=== PATIENT | male | born 1960 ===

== ENCOUNTER 2017-02-06 19:52 | Inpatient (IN) | payer OTHER ==
--- NOTE | 2017-02-06 22:00 | ED PDOC ---
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 He reports that he felt a shaking sensation in his left arm, and subsequently numbness. He reports having trouble with hand gripping and grasping. When asked if he had a facial droop, patient denied, but his confirmed that he did have a left sided facial droop. Patient denies having any other complaints. PMD: Patient does not recall. NIHSS Stroke Scale - Date/Time Evaluation Performed Date Performed: 02/06/17 Time Performed: 21:38 When Was NIHSS Performed: Code Stroke - How Severe is the Stroke Level of Consciousness: 0=Alert LOC to Questions: 0=Both comments correct LOC to commands: 0=Obeys both correctly Best Gaze: 0=Normal Visual: 0=No visual loss Facial: 1=Minor asymmetry Motor Arm - Left: 1=Drift noted before 10 sec Motor Arm - Right: 0=No drift Motor Leg - Left: 0=No drift Motor Leg - Right: 0=No drift Limb Ataxia: 0=Absent Sensory: 1=Mild to moderate loss Best Language: 0=No aphasia Dysarthia: 0=Normal articulation Extinction & Inattention (Neglect): 0=Normal, no object Score: 3 rTPA Inclusion/Exclusion - Refusal of Treatment Patient Refused Treatment: No - Inclusion Criteria for Altepase Patient is 18 years or Older: Yes The Clinical Diagnosis of Ischemic Stroke That is Causing a Potentially Disabling Neurological Deficit: Yes Time of Onset is Well Established to be Less Than 270 Minute Before Treatment Would Begin: Yes Risk/Benefit Discussed With Patient/Family Member Present: Yes - Exclusion Criteria for Altepase Uncontrolled Hypertension at Time of Treatment (Systolic BP above 185 or Diastolic BP above 110 mmHg): No Active Internal Bleeding: No Known Bleeding Diathesis Including but Not Limited to: Platelets Below 100,000/ mm,PTT Above 40 sec After Heparin Use, Current Use of Oral Anitcoagulant With INR Greater Than 1.7 or PT Greater Than 15 secs: No Evidence of an Intracranial Hemorrhage: No Evidence of Major Acute Infarct With Signs Greater Than 1/3 MCA Territory: No Suspicion of Subarachnoid Hemorrhage on Pretreatment Evaluation Even if CT Head Negative For Hemorrhage: No - Warning to TPA With Conditions Following Conditions Weighed Against Anticipated Benefit: No Condition: Stroke Serevity Too Mild Past Medical History Reviewed: Historical Data, Nursing Documentation, Vital Signs Vital Signs: Last Vital Signs Temp 97.6 F 02/06/17 19:55 Pulse 112 H 02/06/17 19:55 Resp 20 02/06/17 19:55 BP 174/80 H 02/06/17 19:55 Pulse Ox 97 02/06/17 19:55 - Medical History PMH: Diabetes (NIDDM), HTN, Hypercholesterolemia Denies: Chronic Kidney Disease - Surgical History Surgical History: No Surg Hx - Family History Family History: States: Unknown Family Hx - Living Arrangements Living Arrangements: With Family - Social History Ex-Smoker (has not smoked in the last 12 months): Yes Alcohol: Occasional Drugs: Denies - Immunization History Hx Tetanus Toxoid Vaccination: No Hx Influenza Vaccination: No Hx Pneumococcal Vaccination: No - Home Medications Home Medications: Ambulatory Orders Medication Instructions Recorded metFORMIN [glucOPHAGE] 1,000 mg PO BIDCC #0 tab 05/31/16 GlipiZIDE [Glucotrol] 2.5 mg PO ACB #0 tab 10/08/16 Lisinopril [Zestril] 10 mg PO DAILY #0 tab 10/08/16 Simvastatin 10 mg PO HS #30 tablet 10/08/16 amLODIPine [Norvasc] 10 mg PO DAILY #0 tab 10/08/16 hydrALAZINE [Apresoline] 25 mg PO TID #0 tab 10/08/16 metFORMIN [glucOPHAGE] 1,000 mg PO BID #0 tab 10/08/16 Glipizide [Glipizide ER] 2.5 mg PO BID #120 ter 11/28/16 Lisinopril [Prinivil] 10 mg PO DAILY #30 tablet 11/28/16 MetFORMIN [glucOPHAGE] 1,000 mg PO BID #60 tab 11/28/16 Simvastatin 10 mg PO HS #30 tablet 11/28/16 amLODIPine [Norvasc] 10 mg PO DAILY #30 tab 11/28/16 hydrALAZINE [hydralazine 25 mg PO TID #90 tab 11/28/16 Hydrochloride] - Allergies Allergies/Adverse Reactions: Allergies Allergy/AdvReac Type Severity Reaction Status Date / Time No Known Allergies Allergy Verified 10/05/16 12:30 Review of Systems ROS Statement: Except As Marked, All Systems Reviewed And Found Negative Neurological: Positive for: Weakness (left arm), Numbness (left arm), Incoordination (left arm) Physical Exam - Reviewed Nursing Documentation Reviewed: Yes Vital Signs Reviewed: Yes - Physical Exam Appears: Positive for: Non-toxic, No Acute Distress Head Exam: Positive for: ATRAUMATIC, NORMOCEPHALIC ENT: Positive for: Other (dry mucous membranes) Neurologic/Psych: Positive for: Alert, Oriented (3x), Motor/Sensory Deficits ( mild paresis of left hand upon hand ct tech. 4/5 power in left arm, as opposed to 5 /5 power in right arm.), Facial Droop (mild left sided facial droop) - Laboratory Results Result Diagrams: 02/06/17 21:52 02/07/17 01:53 - ECG O2 Sat by Pulse Oximetry: 97 (RA) Pulse Ox Interpretation: Normal - Critical Care Total Time (In Min): 60 Documented Critical Care: Time excludes all time spent performint seperately billable procedures Medical Decision Making Medical Decision Makin:38 Initial impression: 56 year old male with acute onset left arm weakness. Code stroke. Code stroke is called upon evaluation by provider. Initial plan: * CT head w/o contrast (code stroke) * EKG * XRay chest portable * type and screen * alcohol serum * CMP * drug screen, urinary * hemoglobin A1C * lipid panel * troponin I * CBC * PTT coag * prothrombin time * accucheck * reevaluation 22:42 Patient admitted to cocaine use. 22:47 Discussed case with (neurology) who agrees that the patient is not a candidate for TPA given low TPA score (minor stroke). 22:55 Spoke with (hospitalist) to admit patient. accepted patient admission. Scribe Attestation: Documented by Jacquelin Anand, acting as a scribe for Willard Cloud MD. Provider Scribe Attestation: All medical record entries made by the Scribe were at my direction and personally dictated by me. I have reviewed the chart and agree that the record accurately reflects my personal performance of the history, physical exam, medical decision making, and the department course for this patient. I have also personally directed, reviewed, and agree with the discharge instructions and disposition. Disposition - Clinical Impression Clinical Impression: Cerebrovascular accident (CVA), Hyperglycemia without ketosis - Patient ED Disposition Is Patient to be Admitted: Yes Discussed With DrHernandez: Bolivar Conteh (Dr Holder) Counseled Patient/Family Regarding: Studies Performed, Diagnosis - Disposition Disposition Time: 22:00 Condition: FAIR - Pt Status Changed To: Hospital Disposition Of: Inpatient - Admit Certification Admit to Inpatient:: After my assessment, the patient will require hospitalization for at least two midnights. This is because of the severity of symptoms shown, intensity of services needed, and/or the medical risk in this patient being treated as an outpatient.
[2017-02-06 22:17] LABS: BASO # 0.1 K/uL (0.0-0.2); BASO % 0.8 % (0.0-2.0); EOS % 0.6 % (0.0-4.0); HEMATOCRIT 43.3 % (35.0-51.0); LYMPH # 1.4 K/uL (1.0-4.3); LYMPH % 18.4 % (20.0-40.0); MEAN CELL VOLUME 95.3 fl (80.0-94.0); MEAN CORPUSCULAR HEMOGLOBIN 30.8 pg (27.0-31.0); MEAN CORPUSCULAR HGB CONC 32.4 g/dL (33.0-37.0); MEAN PLATELET VOLUME 9.3 fl (7.2-11.7); MONO # 0.4 K/uL (0.0-0.8); MONO % 5.5 % (0.0-10.0); NEUT # 5.9 K/uL (1.8-7.0); NEUT % 74.7 % (50.0-75.0); RED CELL DISTRIBUTION WIDTH 12.2 % (11.5-14.5); WHITE BLOOD COUNT 7.9 K/uL (4.8-10.8)
[2017-02-06 22:31] LABS: ALCOHOL SERUM < 10 mg/dl (0-10); ALKALINE PHOSPHATASE 100 U/L (38-126); ALT/SGPT 25 U/L (21-72); AST/SGOT 35 U/L (17-59); BLOOD UREA NITROGEN 27 mg/dl (9-20); CALCIUM 9.3 mg/dL (8.4-10.2); CARBON DIOXIDE 26 mmol/L (22-30); CHLORIDE 88 mmol/L (98-107); GFR AFRICAN-AMERICAN 59; POTASSIUM 4.5 MMOL/L (3.6-5.0); SODIUM 127 mmol/l (132-148); TOTAL PROTEIN 7.4 G/DL (6.3-8.2)
[2017-02-06 22:34] LABS: CHOLESTEROL 339 mg/dL (0-199)
[2017-02-06 22:38] LABS: GLUCOSE,RANDOM 1063 mg/dL (75-110)
--- NOTE | 2017-02-06 22:40 | CT ---
PROCEDURE: CT HEAD WITHOUT CONTRAST. HISTORY: code stroke COMPARISON: None available. TECHNIQUE: Axial computed tomography images were obtained through the head/brain without intravenous contrast. Radiation dose: Total exam DLP = 863 mGy-cm. This CT exam was performed using one or more of the following dose reduction techniques: Automated exposure control, adjustment of the mA and/or kV according to patient size, and/or use of iterative reconstruction technique. FINDINGS: HEMORRHAGE: No intracranial hemorrhage. BRAIN: No mass effect or edema. No atrophy or chronic microvascular ischemic changes. VENTRICLES: Unremarkable. No hydrocephalus. CALVARIUM: Unremarkable. PARANASAL SINUSES: Unremarkable as visualized. No significant inflammatory changes. MASTOID AIR CELLS: Unremarkable as visualized. No inflammatory changes. OTHER FINDINGS: None. IMPRESSION: No acute findings
[2017-02-06] MEDS ORDERED: Sodium Chloride 0.9% 1,000 ML IV STA (22:41)
[2017-02-06] MEDS ORDERED: Insulin Regular 100 units/ml IV ONE (22:41)
[2017-02-06] MEDS ORDERED: Insulin Regular 100 units/ml ONE (22:50)
[2017-02-06 22:56] LABS: PARTIAL THROMBOPLASTIN TIME 26.5 SECONDS (23.3-32.5)
--- NOTE | 2017-02-06 23:16 | CP.PCM.HP ---
History of Present Illness - History of Present Illness History of Present Illness: PCP: None Chief Complaint: Left side weakness HPI: The hx is obtained from the patient and his at bedside. He is a 56 years old male with hx of HTN, HLD, DM II, and noncompliance with medication, brought in by EMS from home because of left side weakness. 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 He immediately fell to the left side, causing bruises to the left leg and left thigh,and not being aware how nor why it occurred. He was not certain if there was weakness to the left lower extremity. In the ED his confirmed that there was a new drooping at the left side of the face. No headaches, dizziness, no sign of upper respiratory tract infection nor ear problem. No nausea, vomits , cough, SOB , chest pain nor palpitations. NIHSS Stroke Scale score was 3 in the ED. He also passed the swallow evaluation. PMH: DM II; HTN; HLD; Renal Insufficiency, Non compliance with medication PSH: ORIF of left Tib/Fib Fracture SH: Former Smoker; Alcohol occasionally, Cocaine use; Live with FH: No hereditary disease Allergies: NKDA Present on Admission - Present on Admission Any Indicators Present on Admission: Yes History of DVT/PE: No History of Uncontrolled Diabetes: Yes Urinary Catheter: No Decubitus Ulcer Present: No Review of Systems - Constitutional Constitutional: Weakness. absent: Anorexia, Chills, Fatigue, Fever, Headache - EENT Eyes: Blurred Vision, Requires Corrective Lenses. absent: Diplopia, Photophobia , Sees Flashes Ears: absent: Decreased Hearing, Ear Discharge, Ear Pain, Tinnitus Nose/Mouth/Throat: absent: Epistaxis, Nasal Congestion, Nasal Discharge, Sinus Pain, Sinus Pressure, Sore Throat - Cardiovascular Cardiovascular: absent: Chest Pain, Dyspnea, Edema, Orthopnea - Respiratory Respiratory: absent: Cough, Dyspnea, Wheezing, Stridor, Chest Congestion - Gastrointestinal Gastrointestinal: absent: Abdominal Pain, Constipation, Diarrhea, Nausea, Vomiting - Genitourinary Genitourinary: absent: Dysuria, Flank Pain, Hematuria, Urinary Frequency - Musculoskeletal Musculoskeletal: Muscle Weakness. absent: Arthralgias, Back Pain - Integumentary Integumentary: absent: Pruritus, Rash, Skin Ulcer, Sores, Striae, Swelling - Neurological Neurological: Focal Weakness. absent: Confusion, Dizziness, Memory Loss - Psychiatric Psychiatric: absent: Anxiety, Depression, Panic Attacks - Endocrine Endocrine: Polydipsia. absent: Palpitations, Polyphagia, Polyuria - Hematologic/Lymphatic Hematologic: absent: Easy Bleeding, Easy Bruising Past Patient History - Infectious Disease Hx of Infectious Diseases: None - Past Medical History & Family History Past Medical History?: Yes - Past Social History Smoking Status: Former Smoker Chewing Tobacco Use: No Cigar Use: No Alcohol: Occasional Drugs: Cocaine Home Situation {Lives}: With Family - CARDIAC Hx Hypercholesterolemia: Yes Hx Hypertension: Yes - PULMONARY Hx Respiratory Disorders: No - NEUROLOGICAL Hx Neurological Disorder: No - HEENT Hx HEENT Problems: No - RENAL Hx Chronic Kidney Disease: Yes Hx Renal Failure: Yes - ENDOCRINE/METABOLIC Hx Endocrine Disorders: Yes Hx Diabetes Mellitus Type 2: Yes - HEMATOLOGICAL/ONCOLOGICAL Hx Blood Disorders: No - INTEGUMENTARY Hx Dermatological Problems: No - MUSCULOSKELETAL/RHEUMATOLOGICAL Hx Musculoskeletal Disorders: No Hx Falls: No (DENIES) - GASTROINTESTINAL Hx Gastrointestinal Disorders: Yes Hx Nausea: Yes Hx Vomiting: Yes - GENITOURINARY/GYNECOLOGICAL Hx Genitourinary Disorders: No - PSYCHIATRIC Hx Substance Use: Yes - SURGICAL HISTORY Hx Surgeries: Yes Hx Open Reduction Internal Fixation: Yes (Left Tib/Fib fracture) - ANESTHESIA Hx Anesthesia: Yes Hx Anesthesia Reactions: No Hx Malignant Hyperthermia: No Meds Allergies/Adverse Reactions: Allergies Allergy/AdvReac Type Severity Reaction Status Date / Time No Known Allergies Allergy Verified 10/05/16 12:30 Physical Exam - Constitutional Appears: No Acute Distress - Head Exam Head Exam: ATRAUMATIC, NORMOCEPHALIC - Eye Exam Eye Exam: EOMI, Normal appearance Pupil Exam: NORMAL ACCOMODATION, PERRL - ENT Exam ENT Exam: Mucous Membranes Moist, Normal Exam, Normal External Ear Exam, Normal Oropharynx - Neck Exam Neck exam: Positive for: Full Rom, Normal Inspection. Negative for: Lymphadenopathy, Tenderness - Respiratory Exam Respiratory Exam: Clear to Auscultation Bilateral. absent: Rales, Rhonchi, Wheezes - Cardiovascular Exam Cardiovascular Exam: REGULAR RHYTHM, RRR, +S1, +S2. absent: Gallop, JVD - GI/Abdominal Exam GI & Abdominal Exam: Normal Bowel Sounds, Soft. absent: Mass, Organomegaly, Tenderness - Rectal Exam Rectal Exam: Deferred - Extremities Exam Additional comments: lateral left leg with excoriation 8 inches the longest diameter Bruise at the lateral left thigh. - Back Exam Back exam: NORMAL INSPECTION. absent: CVA tenderness (L), CVA tenderness (R) - Neurological Exam Neurological exam: Alert, Oriented x3, Reflexes Normal Additional comments: The patient is awake , alert, oriented x 3 with a mild let facial droop. No deviation of the tongue but weakness at the left shoulder and muscles at the left neck. Motor strength at the left upper extremity is 5/5but some what un coordinated. Motor strength at the left lower extremity is 5/5 - Psychiatric Exam Psychiatric exam: Normal Affect, Normal Mood - Skin Skin Exam: Dry, Intact, Normal Color, Warm Results - Vital Signs Recent Vital Signs: Last Vital Signs Temp 97.6 F 02/06/17 19:55 Pulse 112 H 02/06/17 19:55 Resp 20 02/06/17 19:55 BP 174/80 H 02/06/17 19:55 Pulse Ox 97 02/06/17 23:00 - Labs Result Diagrams: 02/06/17 21:52 02/06/17 22:15 - EKG Data EKG comments: Sinus Tachycardia 111/min, no sign of ischemia. - Imaging and Cardiology Chest x-ray Status: Image reviewed by me Additional comment: No Infiltrate CT scan - head Status: Image reviewed by me, Report reviewed by me Additional comment: No Acute findings Assessment & Plan - Assessment and Plan (Free Text) Assessment: #. Acute CVA with left side weakness #. Hyperglycemic Hyperosmolar State #. Uncontrolled DM II #. HTN #. HLD #. Renal Insufficiency Plan: 56 years old male with hx of HTN, HLD, DM II, and noncompliance with medication, brought in by EMS from home because of left side weakness. 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 He immediately fell to the left side, causing bruises to the left leg and left thigh,and not being aware how nor why it occurred. . In the ED his confirmed that there was a new drooping at the left side of the face. NIHSS Stroke Scale score was 3 in the ED. #. Acute CVA with left side weakness. With this patient having Hyperglycemia and Hyper lipidemia this is more likely CVA than Kar's Palsy with Post seizure weakness, although seizure should be ruled out. - consult Neurology Dr Holder - Admit to ICU - Neuro checks q1hr - ASA 325mg PO Daily - MRI/MRA of Brain - Carotid US - ECHO to check for PFO - EEG tor/o seizure - Patient passed swallow evaluation in ED #. Hyperglycemic Hyperosmolar State - IV Fluids one liter in ED, Continue with NS at 500mls/hr for 3L - Regular insulin sliding scale according to Accucheck Q4H - NPO except Meds until Blood Glucose normalizes - Follow Electrolytes #. Uncontrolled DM II - Hold Metformin/ Glipizide until Blood Glucose is Controlled - HbA1c #. Hyponatremia secondary to the Hyperglycemia, increased to 141mg/dl after correction. - follow electrolytes #. HTN uncontrolled - No treatment at present and follow as permissive Hypertension. Treat if SBP> 180mmHG and DBP> 110mmHg until seen by Neurology - Monitor BP #. HLD - Patient on Zocor #. Renal Insufficiency - Continue IV fluids - Follow Renal labs -. Stress Ulcer Prophylaxis with Pepcid. #. DVT Prophylaxis with Sub Q Heparin #. Code Status : Full - Date & Time Date: 02/06/17 Time: 23:16
[2017-02-07] MEDS: Sodium Chloride 0.9% 1,000 ML IV SCH ×5 (02:00→19:11)
[2017-02-07] MEDS: Insulin Regular 100 units/ml SC SCH ×5 (02:54→21:22)
[2017-02-07 03:00] LABS: BLOOD UREA NITROGEN 28 mg/dl (9-20); CARBON DIOXIDE 24 mmol/L (22-30); CHLORIDE 100 mmol/L (98-107); GFR AFRICAN-AMERICAN > 60; MAGNESIUM 1.9 MG/DL (1.6-2.3); PHOSPHOROUS 3.3 mg/dl (2.5-4.5); POTASSIUM 4.1 MMOL/L (3.6-5.0); SODIUM 135 mmol/l (132-148)
[2017-02-07 03:04] LABS: GLUCOSE,RANDOM 526 mg/dL (75-110)
[2017-02-07 04:10] VITALS: BMI 22.1
[2017-02-07 06:48] LABS: HEMATOCRIT 33.9 % (35.0-51.0); MEAN CELL VOLUME 90.3 fl (80.0-94.0); MEAN CORPUSCULAR HEMOGLOBIN 31.1 pg (27.0-31.0); MEAN CORPUSCULAR HGB CONC 34.4 g/dL (33.0-37.0); RED CELL DISTRIBUTION WIDTH 12.2 % (11.5-14.5); WHITE BLOOD COUNT 9.3 K/uL (4.8-10.8)
[2017-02-07 07:27] LABS: BLOOD UREA NITROGEN 25 mg/dl (9-20); CALCIUM 8.6 mg/dL (8.4-10.2); CARBON DIOXIDE 27 mmol/L (22-30); CHLORIDE 103 mmol/L (98-107); CHOLESTEROL 254 mg/dL (0-199); GFR AFRICAN-AMERICAN > 60; GLUCOSE,RANDOM 241 mg/dL (75-110); POTASSIUM 3.4 MMOL/L (3.6-5.0); SODIUM 138 mmol/l (132-148)
--- NOTE | 2017-02-07 08:40 | CP.PCM.PN ---
Subjective - Date & Time of Evaluation Date of Evaluation: 02/07/17 Time of Evaluation: 08:40 - Subjective Subjective: Patient seen and examined bedside. Feeling better. Denies any weakness , numbness at present. Hemodynamically stable, afebrile. Denies any CP, SOB, Blake, blurry vision. BP 149/76 HR 92 saturating 97 % in RA WBC 9 K Hgb 11.7 Objective - Vital Signs/Intake and Output Vital Signs (last 24 hours): Temp Pulse Resp BP Pulse Ox 98.2 F 92 H 15 149/76 98 02/07/17 08:00 02/07/17 08:00 02/07/17 08:00 02/07/17 08:00 02/07/17 08:00 Intake and Output: 02/07/17 02/07/17 06:59 18:59 Intake Total 3000 Output Total 1300 Balance 1700 - Medications Medications: Current Medications Aspirin (Aspirin Supp) 300 mg HI DAILY [facility] Last Admin: 02/06/17 23:00 Dose: 300 mg Famotidine (Pepcid) 20 mg PO BID [facility] Heparin Sodium (Porcine) (Heparin) 5,000 units SC Q8 JOYCE PRN Reason: Protocol Sodium Chloride (Sodium Chloride 0.9%) 1,000 mls @ 100 mls/hr IV .Q10H [facility] Stop: 02/08/17 11:49 Last Admin: 02/07/17 06:58 Dose: 100 mls/hr Insulin Human Regular (Humulin R) 0 units SC Q4H JOYCE PRN Reason: Protocol Last Admin: 02/07/17 05:10 Dose: 4 units Pneumococcal Polyvalent Vaccine (Pneumovax 23 Vaccine) 0.5 ml IM .ONCE ONE Stop: 02/07/17 09:01 Pravastatin Sodium (Pravachol) 20 mg PO HS [facility] - Labs Labs: 02/07/17 04:30 02/07/17 04:30 PT 10.3 SECONDS (9.6-11.2) 02/06/17 22:00 INR 0.99 (0.92-1.08) 02/06/17 22:00 APTT 26.5 SECONDS (23.3-32.5) 02/06/17 22:00 - Constitutional Appears: Non-toxic, No Acute Distress - Head Exam Head Exam: ATRAUMATIC, NORMAL INSPECTION, NORMOCEPHALIC - Eye Exam Eye Exam: EOMI, Normal appearance, PERRL Pupil Exam: NORMAL ACCOMODATION - ENT Exam ENT Exam: Mucous Membranes Moist, Normal Exam - Neck Exam Neck Exam: Full ROM, Normal Inspection - Respiratory Exam Respiratory Exam: Clear to Ausculation Bilateral, NORMAL BREATHING PATTERN. absent: Rales, Rhonchi, Wheezes - Cardiovascular Exam Cardiovascular Exam: REGULAR RHYTHM, RRR, +S1, +S2. absent: JVD - GI/Abdominal Exam GI & Abdominal Exam: Soft, Normal Bowel Sounds. absent: Distended, Guarding, Rebound - Rectal Exam Rectal Exam: Deferred - Extremities Exam Extremities Exam: Full ROM, Normal Capillary Refill, Normal Inspection. absent : Calf Tenderness, Pedal Edema - Back Exam Back Exam: NORMAL INSPECTION - Neurological Exam Neurological Exam: Alert, Awake, CN II-XII Intact, Oriented x3 - Psychiatric Exam Psychiatric exam: Normal Affect, Normal Mood - Skin Skin Exam: Dry, Intact, Normal Color, Warm Assessment and Plan - Assessment and Plan (Free Text) Assessment: 56 years old male with hx of HTN, HLD, DM II, and noncompliance with medication, brought in by EMS from home because of left side weakness. 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 He immediately fell to the left side, causing bruises to the left leg and left thigh,and not being aware how nor why it occurred. . In the ED his confirmed that there was a new drooping at the left side of the face. NIHSS Stroke Scale score was 3 in the ED. Patient also found to have very high levels of glu > 1000 , elevated TG . He was admitted for possible CVA vs Kar's paralysis with new onset seizure and hyperosmolar hyperglycemic state. At present back to his baseline with no weakness and accu 241 1.R/o Acute CVA with left side weakness vs Kar's paralysis and new onset seizure Patient improves, back to his baseline with no weakness , numness or facial droop CT head showed no acute pathology Follow up MRI head,carotid doppler , EEG, neuro checks, Echo Neurology consulted Dr. Holder Continue ASA, Statin, BP and glycemic control Start CHO / cardiac diet since patient passed swallow umair; may transfer to telemetry PT/OT eval 2. Hyperglycemic Hyperosmolar State Glucose 1063 in ED Better controlled at present Change accucheks to ACHS with insulin coverage Continue IVF F/u Hgb A1c endo consult with Dr. Cornejo Start diabetic diet Resume metformin and Glipizide patient is not compliant with medications. Will need diabetic education 3. Pseudohyponatremia secondary to the Hyperglycemia 4. HTN uncontrolled allow permissive hypertension or now 5.Dyslipidemia Start Provastatin 40 6.Acute Renal Insufficiency Continue IV fluids Hold ACEI for now 7. DVT Prophylaxis SCD and Heparin
[2017-02-07] MEDS ORDERED: Potassium Chloride 20 mEq/15 ml LIQ UD PO ONE (08:55)
[2017-02-07] MEDS ORDERED: Pneumococcal 23-Valent Vaccine IM ONE (09:00)
--- NOTE | 2017-02-07 10:00 | RAD ---
HISTORY: code CVA COMPARISON: No prior. FINDINGS: LUNGS: No active pulmonary disease. PLEURA: No significant pleural effusion identified, no pneumothorax apparent. CARDIOVASCULAR: Normal. OSSEOUS STRUCTURES: No significant abnormalities. VISUALIZED UPPER ABDOMEN: Normal. OTHER FINDINGS: None. IMPRESSION: No active disease.
[2017-02-07 10:14] LABS: THYROID STIMULATING HORMONE 2.47 mIU/ML (0.46-4.68)
[2017-02-07 10:38] LABS: URINE BILIRUBIN NEGATIVE (NEGATIVE); URINE BLOOD NEGATIVE (NEGATIVE); URINE COLOR YELLOW (YELLOW); URINE GLUCOSE (UA) >=500 mg/dL (Normal); URINE KETONE NEGATIVE (NEGATIVE); URINE LEUKOCYTE ESTERASE NEG Leu/uL (Negative); URINE PROTEIN 100 mg/dL (NEGATIVE); URINE UROBILINOGEN 0.2-1.0 mg/dL (0.2-1.0); WBC URINE < 1 /hpf (0-5)
--- NOTE | 2017-02-07 11:21 | MRI ---
PROCEDURE: MRI BRAIN WITHOUT CONTRAST HISTORY: CVA with right side weakness COMPARISON: Noncontrast head CT from 02/06/2017 TECHNIQUE: Multiplanar, multisequence MR images of the brain were obtained without intravenous contrast enhancement. FINDINGS: HEMORRHAGE: None DWI: No evidence of an acute or early subacute infarction. BRAIN PARENCHYMA: There are small old lacunar infarctions in the left basal ganglia. There are scattered T2/FLAIR hyperintense foci in the supratentorial white matter. There is no mass, mass effect or abnormal extra-axial fluid collection. Enciso-white matter differentiation is preserved. The midline sagittal structures are normal. VENTRICLES: There is mild global parenchymal volume loss and proportionate enlargement of the ventricles and cortical sulci. CRANIUM: There is normal bone marrow signal pattern. ORBITS: Grossly unremarkable. PARANASAL SINUSES/MASTOIDS: The paranasal sinuses are predominantly clear. There are trace mastoid effusions. VASCULAR SYSTEM: There are normal signal voids in the larger intracranial arteries. OTHER FINDINGS: None. IMPRESSION: No acute intracranial abnormality. Small old lacunar infarctions in the left basal ganglia. Mild chronic microangiopathic changes. Mild diffuse global parenchymal volume loss, advanced for the patient's age.
[2017-02-07] MEDS ORDERED: Insulin Regular 100 units/ml SC SCH (11:30)
--- NOTE | 2017-02-07 11:56 | MRI ---
PROCEDURE: Magnetic Resonance Angiography Brain HISTORY: Left side weakness COMPARISON: None available. TECHNIQUE: 3D time of flight MR angiography of the intracranial arteries was performed. Rotating maximum intensity projection images were generated. FINDINGS: INTERNAL CEREBRAL ARTERIES: Normal in caliber. The skull base, petrous, cavernous and supraclinoid segments are bilaterally widely patient. ANTERIOR CEREBRAL ARTERIES: Normal in caliber. The right A1 segment is hypoplastic, an anatomic variant. There is narrowing in both A1 segments and a short segment stenosis in the left proximal A1 segment. Both A2 segments are widely patent. Smaller distal branches unremarkable, as visualized. MIDDLE CEREBRAL ARTERIES: There is mild narrowing in the right proximal M1 segment. The right distal M1 and M2 segments are widely patent. Perisylvian branches grossly symmetric. POSTERIOR CIRCULATION: Basilar Artery: Normal. Distal Vertebral Arteries: Normal. The left vertebral artery is dominant intracranially. Posterior Cerebral Arteries: Normal. Posterior Inferior Cerebellar Arteries: Normal. ANEURYSM/ VASCULAR MALFORMATIONS: None. OTHER FINDINGS: None. IMPRESSION: 1. Findings may represent intracranial atherosclerosis in both A1 segment with a short segment stenosis in the left proximal M1 segment. 2. Mild narrowing in the right proximal M1 segment could also be related to intracranial atherosclerosis.
[2017-02-07] MEDS: Pravastatin Sodium 40 MG TAB PO SCH (13:57)
--- NOTE | 2017-02-07 14:21 | US ---
PROCEDURE: Duplex ultrasound of the carotid and vertebral arteries. HISTORY: CVA with right side weakness COMPARISON: None available. TECHNIQUE: Grayscale and duplex Doppler evaluation of the cervical carotid and vertebral arteries were performed. The common carotid, carotid bifurcations and cervical ICA and proximal ECA were evaluated. The vertebral arteries were evaluated for gross patency and direction. FINDINGS: There are mild calcified atherosclerotic plaques in the carotid bulbs and proximal internal carotid arteries. RIGHT CAROTID ARTERIES: Common Carotid Artery: Normal. Maximal flow velocity of 82.0 cm/s. Carotid Bifurcation: Normal. Internal Carotid Artery:Normal. Maximal flow velocity of 68.8 cm/s. External Carotid Artery (proximal branches): Normal. Maximal flow velocity of 85.9 cm/s. ICA/CCA Ratio: 0.8 LEFT CAROTID ARTERIES: Common Carotid Artery: Normal. Maximal flow velocity of 110.1 cm/s. Carotid Bifurcation: Normal. Internal Carotid Artery:Normal. Maximal flow velocity of 74.6 cm/s. External Carotid Artery (proximal branches): Normal. Maximal flow velocity of 88.4 cm/s. ICA/CCA Ratio: 0.7 VERTEBRAL ARTERIES: Right Vertebral Artery: Patent. Antegrade flow. Left Vertebral Artery: Patent. Antegrade flow. OTHER FINDINGS: There are bilateral enlarged cervical chain lymph nodes. IMPRESSION: No evidence of hemodynamically significant stenosis by peak systolic velocity criteria. Bilateral cervical lymphadenopathy, nonspecific and could be reactive, infectious or inflammatory in etiology. Neoplastic etiology such as metastasis or lymphoma cannot be entirely excluded. Clinical follow-up is advised.
--- NOTE | 2017-02-07 18:33 | CARD ---
APPROVED REPORT EXAM: Two-dimensional and M-mode echocardiogram with Doppler and color Doppler. Other Information Quality : GoodRhythm : NSR INDICATION CVA/TIA 2D DIMENSIONS IVSd1.48 (0.7-1.1cm)LVDd4.55 (3.9-5.9cm) LVOT Diameter2.34 (1.8-2.4cm)PWd1.15 (0.7-1.1cm) IVSs1.74 (0.8-1.2cm)LVDs3.19 (2.5-4.0cm) FS (%) 30.0 %PWs1.62 (0.8-1.2cm) M-Mode DIMENSIONS Left Atrium (MM)4.00 (2.5-4.0cm)IVSd0.74 (0.7-1.1cm) Aortic Root2.56 (2.2-3.7cm)LVDd5.41 (4.0-5.6cm) Aortic Cusp Exc.1.74 (1.5-2.0cm)PWd0.85 (0.7-1.1cm) IVSs1.47 cmFS (%) 31 % LVDs3.74 (2.0-3.8cm)PWs1.38 cm Mitral Valve E/A ratio0.0 TDI E/Lateral E'0.0E/Medial E'0.0 Pulmonary Valve PV Peak Oafzrssx20.0cm/s LEFT VENTRICLE The left ventricle is normal size. There is normal left ventricular wall thickness. Left ventricle systolic function is mildly impaired. The LVEF is - 50%. The anterior and septal brunner are hypokinetic. The other segments of the left ventricle contract well. Transmitral Doppler flow pattern is Grade I-abnormal relaxation pattern. No left ventricle thrombus noted on this study. There is no ventricular septal defect visualized. There is no left ventricular aneurysm. There is no mass noted in the left ventricle. RIGHT VENTRICLE The right ventricle is normal size. There is normal right ventricular wall thickness. The right ventricular systolic function is normal. ATRIA The left atrium size is normal. There is no thrombus suspected in the left atrium. The right atrium size is normal. The interatrial septum is intact with no evidence for an atrial septal defect. AORTIC VALVE The aortic valve is normal in structure and function. No aortic regurgitation is present. There is no aortic valvular stenosis. MITRAL VALVE The mitral valve is normal in structure and function. There is no evidence of mitral valve prolapse. There is no mitral valve stenosis. Mitral regurgitation is mild. TRICUSPID VALVE The tricuspid valve is normal in structure and function. There is trace to mild tricuspid regurgitation. There is no tricuspid valve prolapse or vegetation. There is no tricuspid valve stenosis. PULMONIC VALVE The pulmonary valve is normal in structure and function. There is no pulmonic valvular regurgitation. GREAT VESSELS The aortic root is normal in size. The IVC is normal in size and collapses >50% with inspiration. PERICARDIAL EFFUSION The pericardium appears normal. There is no pleural effusion. <Conclusion> The left ventricle is normal in size and wall thickness. Left ventricle systolic function is mildly impaired with a LVEF is - 50%. The left atrium, right ventricle and right atrium are normal in size. The mitral, aortic and tricuspid valves are normal. There is mild mitral regurgitation and trace to mild tricuspid regurgitation.
--- NOTE | 2017-02-07 18:47 | CON ---
DATE: 02/07/2017 ROOM: ICU 422. HISTORY OF PRESENT ILLNESS: This is a 56-year-old male with known history of type 2 diabetes and hyp ertension who presents here with apparent left-sided weakness and uncontrollable tremors in the left upper extremity and was evaluated to have possible acute CVA and is now being referred for diabetic e valuation because of persistent hyperglycemic accelerations as noted thereof. PAST MEDICAL HISTORY: History of type 2 diabetes, currently on metformin given as 850 b.i.d. and gli pizide given as 10 mg b.i.d. He actually has admitted to having stopped his oral hypoglycemic therap y and was last using metformin at the higher dose of 1000 b.i.d. and glipizide 10 b.i.d. more than 3 months or so ago as noted,. History of hypertensive cardiovascular disease and dyslipidemia, history of diabetic retinopathy, polyneuropathy, and nephropathy. FAMILY HISTORY: Positive for diabetes and hypertension. SOCIAL HISTORY: The patient has supportive family. Admits to previous history of smoking and persis tent chronic alcoholism. Also, admits to cocaine use every so often as noted. FAMILY HISTORY: Positive for hypertension and diabetes. REVIEW OF SYSTEMS: As mentioned above, admits to generalized body weakness with easy fatigability an d tiredness and suboptimal energy level. Also, admits to visual blurring, worse in the last few week s prior to admission. No chest pains or palpitations or PNDs. His oral intake has been variable wit h nausea, dyspepsia, and vomiting episodes with loose watery diarrhea. PHYSICAL EXAMINATION: GENERAL: An average built male in no apparent distress. VITAL SIGNS: Blood pressure 154/90, pulse of 70 beats per minute and regular, temperature 98, respir ations 20. Height is 5 feet 9 inches, weight 150 pounds. HEENT: Head normocephalic. Eyes anicteric with pink conjunctivae. Fundoscopy not possible at this time. Ears, nose and throat otherwise normal. NECK: Supple. Thyroid gland is normal size. No carotid bruits. No cervical adenopathy. CARDIOPULMONARY: Adynamic precordium. S1, S2 is rapid and regular. LUNGS: Clear to auscultation. ABDOMEN: Flat, soft with positive bowel sounds. EXTREMITIES: No peripheral edema. Pulses are +2 bilaterally. LABORATORY DATA: His chemistry showed a BUN of 27, sodium 127, potassium 4.5, chloride 98, CO2 26, g lucose and creatinine 1.0. His triglycerides of 379 and cholesterol is 339, LDL is 178 and HDL is 92. ASSESSMENT: This is a 56-year-old male with uncontrolled and decompensated type 2 insulin-requiring diabetes, presenting here with hyperosmolar hyperglycemic state with no evidence of ketosis or metabo lic acidosis and concomitant spurious hyponatremia and dehydration. He also has significant history of diabetic microvascular complications of retinopathy, polyneuropathy, and nephropathy as mentioned. PLAN OF MANAGEMENT: As discussed with the patient and staff, we will modify his current insulin celso men and switch him over to a basal insulin with Levemir given as 10 units subQ at bedtime daily to [facility] [place] tonight. We will continue his oral hypoglycemic drug therapy given in combination with glipizide 10 mg b.i.d. and metformin 850 mg b.i.d. as ordered. We will titrate incrementally as indicated to optimize metabolic control. We will also modify the coverage scale to obviate hypoglycemia and detai led orders have been given. However, with the patient's financial constraints and lack of medical in surance, we cannot give him insulin analogs which are more convenient to use and thus a better clinic al and biochemical response thereof. We will start him on the cheaper and more affordable insulin li ke Humulin NPH given as 12 units subQ at bedtime to start tonight. We will also add Humulin 70/30 on ly as indicated by tomorrow. We will obtain serial chemistries and supplement accordingly as needed. We will continue the IV hydration as ordered. We will follow and advise accordingly. Analy Cornejo MD cc: [id number] TT: 02/07/2017 18:46:59 Confirmation # [id number] Dictation # [id number] christine
--- NOTE | 2017-02-07 19:11 | CARD ---
APPROVED REPORT EKG Measurement Heart [id number] <Conclusion> Sinus tachycardia Minimal voltage criteria for LVH, may be normal variant Borderline ECG
--- NOTE | 2017-02-07 20:02 | CP.PCM.CON ---
History of Present Illness - History of Present Illness History of Present Illness: 56 year old male patient with a pertinent medical history of hypertension, NIDDM, and hypercholesterolemia, accompanied by his presents to the ED with complaints of left arm weakness that started 1.5x hours prior to arrival. He reports that he felt a shaking sensation in his left arm, and subsequently numbness. He reports having trouble with hand gripping and grasping. When asked if he had a facial droop, patient denied, but his confirmed that he did have a left sided facial droop. Patient denies having any other complaints. PMD: Patient does not recall. NIHSS Stroke Scale - Date/Time Evaluation Performed Date Performed: 02/06/17 Time Performed: 21:38 When Was NIHSS Performed: Code Stroke - How Severe is the Stroke Level of Consciousness: 0=Alert LOC to Questions: 0=Both comments correct LOC to commands: 0=Obeys both correctly Best Gaze: 0=Normal Visual: 0=No visual loss Facial: 1=Minor asymmetry Motor Arm - Left: 1=Drift noted before 10 sec Motor Arm - Right: 0=No drift Motor Leg - Left: 0=No drift Motor Leg - Right: 0=No drift Limb Ataxia: 0=Absent Sensory: 1=Mild to moderate loss Best Language: 0=No aphasia Dysarthia: 0=Normal articulation Extinction & Inattention (Neglect): 0=Normal, no object Score: 3 Last Vital Signs Temp 97.6 F 02/06/17 19:55 Pulse 112 H 02/06/17 19:55 Resp 20 02/06/17 19:55 BP 174/80 H 02/06/17 19:55 Pulse Ox 97 02/06/17 19:55 - Medical History PMH: Diabetes (NIDDM), HTN, Hypercholesterolemia Denies: Chronic Kidney Disease - Surgical History Surgical History: No Surg Hx - Family History Family History: States: Unknown Family Hx - Social History Ex-Smoker (has not smoked in the last 12 months): Yes Alcohol: Occasional Drugs: Denies - Immunization History Hx Tetanus Toxoid Vaccination: No Hx Influenza Vaccination: No Hx Pneumococcal Vaccination: No - Home Medications Home Medications: Allergies Allergy/AdvReac Type Severity Reaction Status Date / Time No Known Allergies Allergy Verified 10/05/16 12:30 Review of Systems ROS Statement: Except As Marked, All Systems Reviewed And Found Negative Neurological: Positive for: Weakness (left arm), Numbness (left arm), Incoordination (left arm) Past Patient History - Infectious Disease Hx of Infectious Diseases: None - Past Medical History & Family History Past Medical History?: Yes - Past Social History Alcohol: Occasional Drugs: Denies - CARDIAC Hx Hypercholesterolemia: Yes Hx Hypertension: Yes - PULMONARY Hx Respiratory Disorders: No - NEUROLOGICAL Hx Neurological Disorder: No - HEENT Hx HEENT Problems: No - RENAL Hx Chronic Kidney Disease: No - ENDOCRINE/METABOLIC Hx Endocrine Disorders: Yes Hx Diabetes Mellitus Type 2: Yes - HEMATOLOGICAL/ONCOLOGICAL Hx Blood Disorders: No - INTEGUMENTARY Hx Dermatological Problems: No - MUSCULOSKELETAL/RHEUMATOLOGICAL Hx Musculoskeletal Disorders: No Hx Falls: No (DENIES) - GASTROINTESTINAL Hx Gastrointestinal Disorders: Yes Hx Nausea: Yes Hx Vomiting: Yes - GENITOURINARY/GYNECOLOGICAL Hx Genitourinary Disorders: No - PSYCHIATRIC Hx Substance Use: Yes - SURGICAL HISTORY Hx Surgeries: Yes Hx Open Reduction Internal Fixation: Yes (Left Tib/Fib fracture) - ANESTHESIA Hx Anesthesia: Yes Hx Anesthesia Reactions: No Hx Malignant Hyperthermia: No Meds Allergies/Adverse Reactions: Allergies Allergy/AdvReac Type Severity Reaction Status Date / Time No Known Allergies Allergy Verified 10/05/16 12:30 - Medications Medications: Current Medications Amlodipine Besylate (Norvasc) 10 mg PO DAILY [facility] Last Admin: 02/07/17 15:11 Dose: 10 mg Aspirin (Aspirin Supp) 300 mg VT DAILY [facility] Last Admin: 02/06/17 23:00 Dose: 300 mg Famotidine (Pepcid) 20 mg PO BID [facility] Last Admin: 02/07/17 17:03 Dose: 20 mg Glipizide (Glucotrol) 10 mg PO BIDAC [facility] Last Admin: 02/07/17 16:55 Dose: 10 mg Heparin Sodium (Porcine) (Heparin) 5,000 units SC Q8 [facility] PRN Reason: Protocol Last Admin: 02/07/17 16:59 Dose: 5,000 units Hydralazine HCl (Apresoline) 25 mg PO TID [facility] Last Admin: 02/07/17 16:54 Dose: 25 mg Sodium Chloride (Sodium Chloride 0.9%) 1,000 mls @ 100 mls/hr IV .Q10H [facility] Stop: 02/08/17 11:49 Last Admin: 02/07/17 19:11 Dose: 100 mls/hr Insulin Detemir (Levemir) 10 units SC [facility] Insulin Human Regular (Humulin R) 0 units SC [facility] PRN Reason: Protocol Last Admin: 02/07/17 17:00 Dose: 5 units Lisinopril (Zestril) 10 mg PO DAILY [facility] Last Admin: 02/07/17 15:12 Dose: 10 mg Metformin HCl (Glucophage) 850 mg PO BIDWM [facility] Last Admin: 02/07/17 16:55 Dose: 850 mg Pravastatin Sodium (Pravachol) 40 mg PO DAILY [facility] Last Admin: 02/07/17 13:57 Dose: 40 mg Physical Exam - Neurological Exam Additional comments: Mental Status: Awake, alert, oriented x 3, normal memory x 3 Speech is weak but organized, coherent. Cranial Nerves II to XII; No Deficits Motor: General weakness 5- to 5/5 DTR 0/4 Toes are down going by plantar stimulation. Sensory: Glove and Stoke reduced sensation in UEs and LEs peripherally Cerebellar: Normal FNT bilaterally. Results - Vital Signs Recent Vital Signs: Last Vital Signs Temp 98.2 F 02/07/17 19:09 Pulse 86 02/07/17 19:09 Resp 12 02/07/17 19:09 BP 147/78 02/07/17 19:09 Pulse Ox 100 02/07/17 19:09 - Labs Result Diagrams: 02/07/17 04:30 02/07/17 04:30 Labs: Laboratory Results - last 24 hr 02/07/17 02/07/17 02/07/17 01:53 02:05 04:00 WBC RBC Hgb Hct MCV MCH MCHC RDW Plt Count Sodium 135 Cancelled Potassium 4.1 Cancelled Chloride 100 Cancelled Carbon Dioxide 24 Cancelled Anion Gap 16 Cancelled BUN 28 H Cancelled Creatinine 1.3 Cancelled Est GFR ( Amer) > 60 Cancelled Est GFR (Non-Af Amer) 58 Cancelled POC Glucose (mg/dL) > 500 H* Random Glucose 526 H* D Cancelled Hemoglobin A1c Serum Osmolality 313 H Calcium 9.0 Cancelled Phosphorus 3.3 Magnesium 1.9 Triglycerides Cholesterol LDL Cholesterol Direct HDL Cholesterol Vitamin B12 TSH 3rd Generation Urine Color Urine Clarity Urine pH Ur Specific [place] Urine Protein Urine Glucose (UA) Urine Ketones Urine Blood Urine Nitrate Urine Bilirubin Urine Urobilinogen Ur Leukocyte Esterase Urine Microscopic WBC RPR 02/07/17 02/07/17 02/07/17 04:07 04:30 05:09 WBC 9.3 RBC 3.76 L Hgb 11.7 L D Hct 33.9 L MCV 90.3 D MCH 31.1 H MCHC 34.4 RDW 12.2 Plt Count 187 Sodium 138 Potassium 3.4 L Chloride 103 Carbon Dioxide 27 Anion Gap 11 BUN 25 H Creatinine 1.3 Est GFR ( Amer) > 60 Est GFR (Non-Af Amer) 58 POC Glucose (mg/dL) 206 H Random Glucose 241 H Hemoglobin A1c 17.0 H Serum Osmolality Calcium 8.6 Phosphorus Magnesium Triglycerides 71 D Cholesterol 254 H LDL Cholesterol Direct 169 H HDL Cholesterol 71 H Vitamin B12 TSH 3rd Generation Urine Color Urine Clarity Urine pH Ur Specific [place] Urine Protein Urine Glucose (UA) Urine Ketones Urine Blood Urine Nitrate Urine Bilirubin Urine Urobilinogen Ur Leukocyte Esterase Urine Microscopic WBC RPR 02/07/17 02/07/17 02/07/17 09:30 10:30 13:45 WBC RBC Hgb Hct MCV MCH MCHC RDW Plt Count Sodium Potassium Chloride Carbon Dioxide Anion Gap BUN Creatinine Est GFR ( Amer) Est GFR (Non-Af Amer) POC Glucose (mg/dL) 403 H* Random Glucose Hemoglobin A1c Serum Osmolality Calcium Phosphorus Magnesium Triglycerides Cholesterol LDL Cholesterol Direct HDL Cholesterol Vitamin B12 659 TSH 3rd Generation 2.47 Urine Color Yellow Urine Clarity Clear Urine pH 6.0 Ur Specific [place] 1.018 Urine Protein 100 Urine Glucose (UA) >=500 Urine Ketones Negative Urine Blood Negative Urine Nitrate Negative Urine Bilirubin Negative Urine Urobilinogen 0.2-1.0 Ur Leukocyte Esterase Neg Urine Microscopic WBC < 1 RPR Nonreactive 02/07/17 16:42 WBC RBC Hgb Hct MCV MCH MCHC RDW Plt Count Sodium Potassium Chloride Carbon Dioxide Anion Gap BUN Creatinine Est GFR ( Amer) Est GFR (Non-Af Amer) POC Glucose (mg/dL) 362 H Random Glucose Hemoglobin A1c Serum Osmolality Calcium Phosphorus Magnesium Triglycerides Cholesterol LDL Cholesterol Direct HDL Cholesterol Vitamin B12 TSH 3rd Generation Urine Color Urine Clarity Urine pH Ur Specific [place] Urine Protein Urine Glucose (UA) Urine Ketones Urine Blood Urine Nitrate Urine Bilirubin Urine Urobilinogen Ur Leukocyte Esterase Urine Microscopic WBC RPR Assessment & Plan (1) CVA (cerebral vascular accident) Status: Acute (2) Hyperglycemia without ketosis Status: Acute (3) Hyperglycemia due to type 1 diabetes mellitus Status: Removed (4) Seizures due to metabolic disorder Assessment and Plan: due to hyperglycemic non ketotic status causing seizures due to hyperosmolar condition. The treatment is to control the Blood Glucose. Status: Acute
[2017-02-07] MEDS ORDERED: Insulin Detemir 100 Units/ml Inj SC SCH (22:00)
[2017-02-07] MEDS ORDERED: Pravastatin Sodium 20 MG TAB PO SCH (22:00)
[2017-02-07] MEDS ORDERED: Patient's Own Med (Simvastatin [Simvastatin] 10 MG) PO SCH (22:00)
[2017-02-08 04:51] VITALS: TEMP 98.2
[2017-02-08 05:58] LABS: BLOOD UREA NITROGEN 17 mg/dl (9-20); CALCIUM 8.1 mg/dL (8.4-10.2); CARBON DIOXIDE 28 mmol/L (22-30); CHLORIDE 107 mmol/L (98-107); GFR AFRICAN-AMERICAN > 60; GLUCOSE,RANDOM 191 mg/dL (75-110); POTASSIUM 3.6 MMOL/L (3.6-5.0); SODIUM 140 mmol/l (132-148)
[2017-02-08] MEDS: Insulin Regular 100 units/ml SC SCH ×2 (06:30→12:14)
[2017-02-08] MEDS: Pravastatin Sodium 40 MG TAB PO SCH (08:31)
[2017-02-08 08:32] VITALS: BP 130/59
--- NOTE | 2017-02-08 09:14 | CP.PCM.DIS ---
Provider - Provider Date of Admission: 02/06/17 22:36 Attending physician: Bolivar Conteh Consults: Neuro consult Endo consult Time Spent in preparation of Discharge (in minutes): 20 Hospital Course - Lab Results Lab Results: Most Recent Lab Values WBC 9.3 K/uL (4.8-10.8) 02/07/17 04:30 RBC 3.76 Mil/uL (4.40-5.90) L 02/07/17 04:30 Hgb 11.7 g/dL (12.0-18.0) L D 02/07/17 04:30 Hct 33.9 % (35.0-51.0) L 02/07/17 04:30 MCV 90.3 fl (80.0-94.0) D 02/07/17 04:30 MCH 31.1 pg (27.0-31.0) H 02/07/17 04:30 MCHC 34.4 g/dL (33.0-37.0) 02/07/17 04:30 RDW 12.2 % (11.5-14.5) 02/07/17 04:30 Plt Count 187 K/uL (130-400) 02/07/17 04:30 MPV 9.3 fl (7.2-11.7) 02/06/17 21:52 Neut % (Auto) 74.7 % (50.0-75.0) 02/06/17 21:52 Lymph % (Auto) 18.4 % (20.0-40.0) L 02/06/17 21:52 [place] % (Auto) 5.5 % (0.0-10.0) 02/06/17 21:52 Eos % (Auto) 0.6 % (0.0-4.0) 02/06/17 21:52 Baso % (Auto) 0.8 % (0.0-2.0) 02/06/17 21:52 Neut # 5.9 K/uL (1.8-7.0) 02/06/17 21:52 Lymph # 1.4 K/uL (1.0-4.3) 02/06/17 21:52 [place] # 0.4 K/uL (0.0-0.8) 02/06/17 21:52 Eos # 0.0 K/uL (0.0-0.7) 02/06/17 21:52 Baso # 0.1 K/uL (0.0-0.2) 02/06/17 21:52 PT 10.3 SECONDS (9.6-11.2) 02/06/17 22:00 INR 0.99 (0.92-1.08) 02/06/17 22:00 APTT 26.5 SECONDS (23.3-32.5) 02/06/17 22:00 Sodium 140 mmol/l (132-148) 02/08/17 04:30 Potassium 3.6 MMOL/L (3.6-5.0) 02/08/17 04:30 Chloride 107 mmol/L (98-107) 02/08/17 04:30 Carbon Dioxide 28 mmol/L (22-30) 02/08/17 04:30 Anion Gap 8 (10-20) L 02/08/17 04:30 BUN 17 mg/dl (9-20) 02/08/17 04:30 Creatinine 1.2 mg/dL (0.8-1.5) 02/08/17 04:30 Est GFR ( Amer) > 60 02/08/17 04:30 Est GFR (Non-Af Amer) > 60 02/08/17 04:30 POC Glucose (mg/dL) 210 mg/dL (65-110) H 02/08/17 04:35 Random Glucose 191 mg/dL (75-110) H 02/08/17 04:30 Hemoglobin A1c 17.0 % (4.2-6.5) H 02/07/17 04:07 Serum Osmolality 313 mosm/kg (272-300) H 02/07/17 01:53 Calcium 8.1 mg/dL (8.4-10.2) L 02/08/17 04:30 Phosphorus 3.3 mg/dl (2.5-4.5) 02/07/17 01:53 Magnesium 1.9 MG/DL (1.6-2.3) 02/07/17 01:53 Total Bilirubin 1.0 mg/dl (0.2-1.3) 02/06/17 22:15 AST 35 U/L (17-59) 02/06/17 22:15 ALT 25 U/L (21-72) 02/06/17 22:15 Alkaline Phosphatase 100 U/L (38-126) 02/06/17 22:15 Troponin I 0.0170 ng/mL (0.00-0.120) 02/06/17 22:15 Total Protein 7.4 G/DL (6.3-8.2) 02/06/17 22:15 Albumin 3.7 g/dL (3.5-5.0) 02/06/17 22:15 Globulin 3.7 gm/dL (2.2-3.9) 02/06/17 22:15 Albumin/Globulin Ratio 1.0 (1.0-2.1) 02/06/17 22:15 Triglycerides 71 mg/DL (0-149) D 02/07/17 04:30 Cholesterol 254 mg/dL (0-199) H 02/07/17 04:30 LDL Cholesterol Direct 169 mg/dL (0-129) H 02/07/17 04:30 HDL Cholesterol 71 MG/DL (30-70) H 02/07/17 04:30 Vitamin B12 659 pg/mL (239-931) 02/07/17 09:30 TSH 3rd Generation 2.47 mIU/ML (0.46-4.68) 02/07/17 09:30 Urine Color Yellow (YELLOW) 02/07/17 10:30 Urine Clarity Clear (Clear) 02/07/17 10:30 Urine pH 6.0 (5.0-8.0) 02/07/17 10:30 Ur Specific [place] 1.018 (1.003-1.030) 02/07/17 10:30 Urine Protein 100 mg/dL (NEGATIVE) 02/07/17 10:30 Urine Glucose (UA) >=500 mg/dL (Normal) 02/07/17 10:30 Urine Ketones Negative mg/dL (NEGATIVE) 02/07/17 10:30 Urine Blood Negative (NEGATIVE) 02/07/17 10:30 Urine Nitrate Negative (NEGATIVE) 02/07/17 10:30 Urine Bilirubin Negative (NEGATIVE) 02/07/17 10:30 Urine Urobilinogen 0.2-1.0 mg/dL (0.2-1.0) 02/07/17 10:30 Ur Leukocyte Esterase Neg [place]/uL (Negative) 02/07/17 10:30 Urine Microscopic WBC < 1 /hpf (0-5) 02/07/17 10:30 Urine Opiates Screen Negative (NEGATIVE) 02/06/17 10:30 Urine Methadone Screen Negative (NEGATIVE) 02/06/17 10:30 Ur Barbiturates Screen Negative (NEGATIVE) 02/06/17 10:30 Ur Phencyclidine Scrn Negative (NEGATIVE) 02/06/17 10:30 Ur Amphetamines Screen Negative (NEGATIVE) 02/06/17 10:30 U Benzodiazepines Scrn Negative (NEGATIVE) 02/06/17 10:30 U Oth Cocaine Metabols Negative (NEGATIVE) 02/06/17 10:30 U Cannabinoids Screen Negative (NEGATIVE) 02/06/17 10:30 Alcohol, Quantitative < 10 mg/dl (0-10) 02/06/17 22:15 RPR Nonreactive (NONREACTIVE) 02/07/17 09:30 Blood Type A POSITIVE 02/06/17 21:58 Antibody Screen Negative 02/06/17 21:58 BBK History Checked No verified bt 02/06/17 21:58 - Hospital Course Hospital Course: 56 years old male with hx of HTN, HLD, DM II, and noncompliance with medication, brought in by EMS from home because of left side weakness. 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 He immediately fell to the left side, causing bruises to the left leg and left thigh,and not being aware how nor why it occurred. . In the ED his confirmed that there was a new drooping at the left side of the face. NIHSS Stroke Scale score was 3 in the ED. Patient also found to have very high levels of glu > 1000 , elevated TG . He was admitted for possible CVA vs Kar's paralysis with new onset seizure and hyperosmolar hyperglycemic state. CT and MRI head showed no acute pathology. Patient was admitted in ICU and started on vigorous IV hydration, frequent accuchecks and neurocheck, BMP and electrolyte monitoring, as well as insulin coverage. Neuro and endo were consulted and case discussed. As per neurologist ,most likely focal seizure episode with left side weakness is secondary to hyperosmolar hyperglycemic state, not areal seizure disorder and does not require antiepileptic treatment. CVAwas ruled out His lab work up showed Hgb A1c 17 and elevated lipid profile. The confirmed ,patient being a diabetic for a long time and not taking his medications, with multiple hospital admissions. Due to insurance constraints and financial difficulties ,started on Glipizide 10 mg holden BID , Metformin 1000 mg po BID and NPH insulin 12 units Sq bedtime . Counselled patient on diabetes and compliance with medications Started on provastatin for dyslipidemia. Clinically patient improved ,with no more episodes of tremors/ seizures, numbness resolved, hemodynamically stable, afebrile, tolerating po intake, denies any nausea,vomiting, dizziness, PAYNE, blurry vision, abdominal discomfort Accuchecks improved 190-220 patient discharged ho,me with . all prescriptions provided in hard copy and sent via RX to [facility] 1.CVA ruled out Most likely left sided weakness and tremors related to hyperglycemic hyperosmolar state Patient improved, back to his baseline with no weakness ,no numbness or facial droop CT , MRI head showed no acute stroke carotid doppler showed no significant stenosis EEG performed. Official reading to be follo was out patient Echo - showed mildly depressed LV function witgh EF 50 % Neurology consulted with Dr. Holder appreciated and recommended glycemic better control Will continue ASA,Provastatin , BP and better glycemic control Counselled on diet 2. Hyperglycemic Hyperosmolar State Glucose 1063 in ED Better controlled at present Hgb A1c [address] Cornejo appreciated Started and counselled on diabetic diet Due to financial restrictions strated on Glipizide 10 mg PO BID. Metformin 1000 mg po bid and NPH insulin 12 units SQ HS patient is not compliant with medications. Counselled patient 3. Pseudohyponatremia secondary to the Hyperglycemia resolved after IVF and better glycemic control 4. HTN uncontrolled Restarted home meds, lisinopril,Norvasc and Hydralazine 5.Dyslipidemia Started Provastatin 40 6.Acute Renal Insufficiency Recived IV fluids, improved 7. DVT Prophylaxis SCD and Heparin Discharge Exam - Head Exam Head Exam: ATRAUMATIC, NORMAL INSPECTION, NORMOCEPHALIC - Eye Exam Eye Exam: EOMI, Normal appearance, PERRL Pupil Exam: NORMAL ACCOMODATION - ENT Exam ENT Exam: Normal Exam - Neck Exam Neck exam: Full Rom, Normal Inspection - Respiratory Exam Respiratory Exam: Clear to PA & Lateral, NORMAL BREATHING PATTERN. absent: Rhonchi, Wheezes - Cardiovascular Exam Cardiovascular Exam: REGULAR RHYTHM, RRR, +S1, +S2. absent: JVD - GI/Abdominal Exam GI & Abdominal Exam: Normal Bowel Sounds, Soft. absent: Guarding, Rebound, Tenderness - Rectal Exam Rectal Exam: Deferred - Extremities Exam Extremities exam: normal capillary refill, normal inspection, pedal pulses present - Back Exam Back exam: NORMAL INSPECTION - Neurological Exam Neurological exam: Alert, CN II-XII Intact, Oriented x3 - Psychiatric Exam Psychiatric exam: Normal Affect - Skin Skin Exam: Dry, Warm Discharge Plan - Discharge Medications Prescriptions: hydrALAZINE [Apresoline] 25 mg PO TID #90 tab Aspirin [Aspirin Chewable] 81 mg PO DAILY #30 chew GlipiZIDE [Glucotrol] 10 mg PO BIDAC #60 tab amLODIPine [Norvasc] 10 mg PO DAILY #30 tab Insulin Human (NPH)/Regular [Novolin 70/30 (70/30 units/ml) 10 ml] 12 units SC HS #100 Pravastatin Sodium [Pravachol] 40 mg PO DAILY #30 tab Lisinopril [Prinivil] 10 mg PO DAILY #30 tablet metFORMIN [glucOPHAGE] 850 mg PO BIDWM #60 tab - Follow Up Plan Condition: IMPROVED Disposition: HOME/ ROUTINE Patient education suggested?: Yes Instructions: Diabetes Mellitus Type 2 in Adults (DC) Referrals: [facility] [Outside]
[2017-02-08 11:06] VITALS: PULSE 85; RESP 16; O2SAT 100
--- NOTE | 2017-02-08 13:05 | PN ---
DATE: 02/08/2017 In ICU, room 422 This is a 56-year-old male with recent uncontrolled type 2 insulin-requiring diabetes, presenting her e with marked hyperglycemic accelerations and underlying hyperosmolar hyperglycemic state and dehydra tion and has since then improved clinically and metabolically as noted thereof. He received vigorous IV hydration with intensive insulin therapy as given. His latest chemistry showed a BUN of 17, sodium 140, potassium 3.6, chloride 107, CO2 28, glucose 191 and creatinine 1.2. His glucose levels have improved, but are still fluctuating and have ranged fro m 210-275 and 336 mg/dL. So at this time, we will continue the modified basal insulin with Humulin NPH given as 12 units subQ at bedtime daily as ordered. We will continue the dual oral hypoglycemic therapy with metformin give n as 850 mg b.i.d. with meals and glipizide given as 10 mg b.i.d. before meals as ordered. We will t itrate incrementally as indicated to optimize metabolic control. We will follow. Analy Cornejo MD cc: [id number] TT: 02/08/2017 13:04:13 Confirmation # [id number] Dictation # [id number]
--- NOTE | 2017-02-14 14:24 | EEG ---
DATE: 02/12/2017 The record is obtained for a history of altered mental status, history of acute CVA, left-sided hemip aresis, and he has a diagnosis of rule out seizures. The record was obtained while the patient was a wake, drowsy, and asleep. The record was symmetrically equal on both sides with a velocity of 6 cycl es per second. Waves are fairly formed, fairly organized with no specific distribution, small in amp litude, fairly reactive to eye opening, poorly organized. There were no abnormal discharges. No spi ke, no polyspike, no sharp wave, no focal slowing or paroxysmal discharge. The record showed periods of drowsiness during which attenuation and slowing of the record were seen and theta waves were seen . The record showed periods of sleep during which delta waves were seen briefly and there were a few eye movement artifacts, electrode artifacts, and muscle movement artifacts. The photic stimulation was performed and did not produce any changes. Hyperventilation was omitted. In sum, this is an abnormal record, significant for generalized slowing and poor organization. This might be consistent with encephalopathy. Clinical correlation is recommended. Kaden Holder MD cc: [id number] TT: 02/14/2017 05:22:54 Confirmation # [id number] Dictation # [id number] tn
== END 2017-02-08 12:16 | disposition home or self-care (01) | DRG 294 ==
LOC: H.ER 19:52 → H.ERHOLD 22:36 → H.ICU/CCU 02-07 01:09
PROVIDERS: ADMIT Internal Medicine; ATTEND Internal Medicine
PROC: 3E0234Z Introduction of Serum, Toxoid and Vaccine into Muscle, Percutaneous Approach (ICD-10-PCS; principal; 2017-02-07)
DX: E11.00 Type 2 diabetes mellitus with hyperosmolarity without nonketotic hyperglycemic-hyperosmolar coma (NKHHC) (principal); R56.9 Unspecified convulsions; E11.42 Type 2 diabetes mellitus with diabetic polyneuropathy; E86.0 Dehydration; E87.1 Hypo-osmolality and hyponatremia; F14.90 Cocaine use, unspecified, uncomplicated; Z79.4 Long term (current) use of insulin; R53.1 Weakness; E78.00 Pure hypercholesterolemia, unspecified; E78.5 Hyperlipidemia, unspecified; N28.9 Disorder of kidney and ureter, unspecified; Z91.14 Patient's other noncompliance with medication regimen; I10 Essential (primary) hypertension; Z23 Encounter for immunization; Z87.891 Personal history of nicotine dependence; E11.319 Type 2 diabetes mellitus with unspecified diabetic retinopathy without macular edema

== ENCOUNTER 2017-08-02 20:36 | Inpatient (IN) | payer MEDICAID, OTHER ==
[2017-08-02 20:36] VITALS: BMI 22.1
[2017-08-02 21:31] LABS: BASO # 0.1 K/uL (0.0-0.2); BASO % 0.8 % (0.0-2.0); EOS % 0.4 % (0.0-4.0); HEMATOCRIT 41.8 % (35.0-51.0); LYMPH # 1.6 K/uL (1.0-4.3); LYMPH % 12.1 % (20.0-40.0); MEAN CELL VOLUME 91.2 fl (80.0-94.0); MEAN CORPUSCULAR HEMOGLOBIN 30.4 pg (27.0-31.0); MEAN CORPUSCULAR HGB CONC 33.4 g/dL (33.0-37.0); MEAN PLATELET VOLUME 8.1 fl (7.2-11.7); MONO % 7.5 % (0.0-10.0); NEUT # 10.6 K/uL (1.8-7.0); NEUT % 79.2 % (50.0-75.0); RED CELL DISTRIBUTION WIDTH 12.7 % (11.5-14.5); WHITE BLOOD COUNT 13.4 K/uL (4.8-10.8)
[2017-08-02] MEDS ORDERED: Insulin Regular 100 units/ml IV ONE (21:31)
[2017-08-02] MEDS ORDERED: Sodium Chloride 0.9% 1,000 ML IV STA (21:31)
[2017-08-02] MEDS ORDERED: Insulin Regular 100 units/ml ONE (21:31)
[2017-08-02 21:44] LABS: CALCIUM 9.2 mg/dL (8.4-10.2)
[2017-08-02 21:47] LABS: URINE BILIRUBIN NEGATIVE (NEGATIVE); URINE BLOOD SMALL (NEGATIVE); URINE COLOR STRAW (YELLOW); URINE GLUCOSE (UA) >=500 mg/dL (Normal); URINE KETONE NEGATIVE (NEGATIVE); URINE LEUKOCYTE ESTERASE NEG Leu/uL (Negative); URINE PROTEIN 100 mg/dL (NEGATIVE); URINE UROBILINOGEN 0.2-1.0 mg/dL (0.2-1.0)
[2017-08-02 21:52] LABS: RBC URINE 12 /hpf (0-3); WBC URINE 3 /hpf (0-5)
[2017-08-02 22:17] LABS: POTASSIUM 5.1 MMOL/L (3.6-5.0)
--- NOTE | 2017-08-02 22:38 | ED PDOC ---
Lower Extremity Pain/Injury Time Seen by Provider: 08/02/17 20:56 Chief Complaint (Nursing): Lower Extremity Problem/Injury Chief Complaint (Provider): Right Foot Wound History Per: Patient History/Exam Limitations: no limitations Current Symptoms Are (Timing): Still Present Additional Complaint(s): Jose Bagley, a 56 year old male, with a past medical history of type 1 diabetes and diabetic ulcers presents to the ED with 3 weeks of ulceration of the right fifth toe. The patient reports that he was seen at [facility] ED but since then the ulceration has become worse. Denies drainage but notes discoloration to toe. He rates his pain at a 6/10 on the pain scale and states that the pain is worse when he ambulates. Patient admits to being poorly compliant with his insulin. Past Medical History Reviewed: Historical Data, Nursing Documentation, Vital Signs Vital Signs: Last Vital Signs Temp 99 F 08/02/17 20:50 Pulse 72 08/02/17 20:50 Resp 18 08/02/17 20:50 BP 166/88 H 08/02/17 20:50 Pulse Ox 100 08/02/17 20:50 - Medical History PMH: Diabetes (NIDDM), HTN, Hypercholesterolemia Denies: HIV, Chronic Kidney Disease - Surgical History Surgical History: No Surg Hx - Family History Family History: States: Unknown Family Hx - Immunization History Hx Tetanus Toxoid Vaccination: No Hx Influenza Vaccination: No Hx Pneumococcal Vaccination: No - Home Medications Home Medications: Ambulatory Orders Medication Instructions Recorded Diabetes Med 07/20/17 Insulin Shot 07/20/17 Mupirocin 2% Ointment [Bactroban 1 appl TP BID #1 tube 07/20/17 Ointment] - Allergies Allergies/Adverse Reactions: Allergies Allergy/AdvReac Type Severity Reaction Status Date / Time No Known Allergies Allergy Verified 07/20/17 17:56 Review of Systems ROS Statement: Except As Marked, All Systems Reviewed And Found Negative Musculoskeletal: Positive for: Other (right fifth toe pain) Physical Exam - Reviewed Nursing Documentation Reviewed: Yes Vital Signs Reviewed: Yes - Physical Exam Appears: Positive for: Non-toxic, No Acute Distress Head Exam: Positive for: ATRAUMATIC, NORMAL INSPECTION, NORMOCEPHALIC Skin: Positive for: Normal Color, Warm, Dry. Negative for: Rash Eye Exam: Positive for: Normal appearance, EOMI, PERRL. Negative for: Nystagmus ENT: Positive for: Normal ENT Inspection. Negative for: Nasal Congestion, Tonsillar Exudate Neck: Positive for: Normal, Painless ROM, Supple Cardiovascular/Chest: Positive for: Regular Rate, Rhythm, Chest Non Tender. Negative for: Tachycardia Respiratory: Positive for: Normal Breath Sounds. Negative for: Wheezing, Respiratory Distress Gastrointestinal/Abdominal: Positive for: Normal Exam, Bowel Sounds, Soft. Negative for: Tenderness, Guarding, Rebound Back: Positive for: Normal Inspection. Negative for: L CVA Tenderness, R CVA Tenderness Extremity: Positive for: Normal ROM (limited ROM secondary to pain), Tenderness (tenderness to right fifth toe), Other (base of right fifth toe ecchymotic with no drainage but feels cool to touch.). Negative for: Deformity, Swelling - Laboratory Results Result Diagrams: 08/05/17 14:09 08/05/17 14:09 - ECG O2 Sat by Pulse Oximetry: 100 (RA) Pulse Ox Interpretation: Normal - Critical Care Total Time (In Min): 30 Medical Decision Making Medical Decision Makin Initial Impression: 56 y/o male presenting with ulceration of right fifth toe in setting of known diabetes Initial Plan: * BMP * Lactic Acid Plasma * CBC * Foot AP LAT right * HUMUlin 10 units IV * Toradol 10mg IV * Blood Culture * Accucheck * Urinalysis * Reevaluation 2244 Patient evaluated by podiatry who recommend that patient be admitted for further treatment of diabetic wound. Labs reviewed significant for hypoglycemia and elevated WBC count. Patient will be admitted, as discussed with Dr. Murray (Medicine neon installer). Diagnosis: Uncontrolled Diabetes, hypoglycemia, Diabetic Foot Condition: Fair Scribe Attestation Documented by Billie Guillen acting as a scribe for Willard Hampton MD. Provider Attestation All medical record entries made by the Scribe were at my direction and personally dictated by me. I have reviewed the chart and agree that the record accurately reflects my personal performance of the history, physical exam, medical decision making, and the department course for this patient. I have also personally directed, reviewed, and agree with the discharge instructions and disposition. Disposition - Clinical Impression Clinical Impression: Hyperglycemia, Diabetes mellitus, Diabetic foot - Patient ED Disposition Is Patient to be Admitted: Yes Discussed With : Yvon Murray Counseled Patient/Family Regarding: Studies Performed, Diagnosis - Disposition Disposition Time: 22:45 Condition: STABLE
[2017-08-02] MEDS ORDERED: Piperacillin/Tazobact 3.375 GM in Sodium Chloride 0.9% 100 ML IV STA (22:41)
[2017-08-02] MEDS ORDERED: Piperacillin/Tazobact 3.375 gm Inj IVPB ONE (22:49)
[2017-08-03] MEDS ORDERED: Insulin Regular 100 units/ml SC SCH (07:30)
--- NOTE | 2017-08-03 08:36 | CP.PCM.CON ---
History of Present Illness - History of Present Illness History of Present Illness: 56 year old male with PMHx of DM presents to clinic complaining of a painful wound on his right fifth digit. Patient states that wound has been present for about two weeks and occurred when his boot rubbed up against his foot. Patient states that at the time of injury he presented to the ED at [facility] where they cleaned the wound, dressed it and discharged him. Since that time the wound has scabbed over but still remains painful. Patient denies any drainage, malodor or redness surrounding the wound at any time. Patient states that he has been experiencing a burning sensation in his foot all day today. Patient denies any further pedal complaints at this time. Patient denies N/V/F/C /CP/SOB Review of Systems - Review of Systems Review of Systems: ROS unremarkable outside of HPI Past Patient History - Infectious Disease Hx of Infectious Diseases: None - Past Medical History & Family History Past Medical History?: Yes - Past Social History Smoking Status: Never Smoked - CARDIAC Hx Cardiac Disorders: Yes Hx Hypertension: Yes - PULMONARY Hx Respiratory Disorders: No - NEUROLOGICAL Hx Neurological Disorder: No - HEENT Hx HEENT Problems: No - RENAL Hx Chronic Kidney Disease: No - ENDOCRINE/METABOLIC Hx Endocrine Disorders: Yes Hx Diabetes Mellitus Type 1: Yes - HEMATOLOGICAL/ONCOLOGICAL Hx Human Immunodeficiency Virus (HIV): No - INTEGUMENTARY Hx Dermatological Problems: No - MUSCULOSKELETAL/RHEUMATOLOGICAL Hx Musculoskeletal Disorders: No Hx Falls: Yes (6 months ago "when sugar was too high") - GASTROINTESTINAL Hx Gastrointestinal Disorders: Yes Hx Nausea: Yes Hx Vomiting: Yes - GENITOURINARY/GYNECOLOGICAL Hx Genitourinary Disorders: No - PSYCHIATRIC Hx Psychophysiologic Disorder: No Hx Substance Use: Yes - SURGICAL HISTORY Hx Surgeries: Yes Hx Open Reduction Internal Fixation: Yes (Left Tib/Fib fracture) - ANESTHESIA Hx Anesthesia: Yes Hx Anesthesia Reactions: No Hx Malignant Hyperthermia: No Meds Allergies/Adverse Reactions: Allergies Allergy/AdvReac Type Severity Reaction Status Date / Time No Known Allergies Allergy Verified 07/20/17 17:56 - Medications Medications: Current Medications Amlodipine Besylate (Norvasc) 5 mg PO DAILY JOYCE Enoxaparin Sodium (Lovenox) 40 mg SC DAILY JOYCE PRN Reason: Protocol Insulin Human Regular (Humulin R) 0 units SC ACHS JOYCE PRN Reason: Protocol Metoprolol Tartrate (Lopressor) 25 mg PO Q12 [facility] Oxycodone/Acetaminophen (Percocet 5/325 Mg Tab) 1 tab PO Q4 PRN PRN Reason: Pain, severe (8-10) Stop: 08/06/17 06:31 Physical Exam - Constitutional Appears: Well, Non-toxic, No Acute Distress - Extremities Exam Additional comments: LE focused exam: Vasc: DP pulses non-palpable b/l. PT pulse only palpable 2/4 to left foot. CFT > 3 seconds to all digits b/l. Skin temperature cool to cool from proximal to distal > right side. No edema noted at this time b/l Neuro: Epicritic and protective sesation grossly diminished b/l Derm: Approx. 1 cm x 1 cm wound noted to lateral aspect of patient's right fifth digit. Wound is covered over completely with a scab. No drainage expressed , no malodor and no periwound erythema present at this time. Dusky skin coloration noted to entirety of right fifth digit most consistently resembling ischemic skin changes. Otherwise no open lesions, wounds, maceration, xerosis, abnormal pigmentation or abnormal growths noted b/l. MSK: POP to area of wound - Neurological Exam Neurological exam: Alert, Oriented x3 - Psychiatric Exam Psychiatric exam: Normal Affect, Normal Mood Results - Vital Signs Recent Vital Signs: Last Vital Signs Temp 98.4 F 08/03/17 07:38 Pulse 81 08/03/17 07:38 Resp 18 08/03/17 07:38 BP 156/82 H 08/03/17 07:38 Pulse Ox 97 08/03/17 07:38 - Labs Result Diagrams: 08/02/17 21:26 08/02/17 21:26 Labs: Laboratory Results - last 24 hr 08/02/17 08/02/17 08/02/17 21:26 21:26 21:26 WBC 13.4 H RBC 4.58 Hgb 13.9 D Hct 41.8 MCV 91.2 MCH 30.4 MCHC 33.4 RDW 12.7 Plt Count 215 MPV 8.1 Neut % (Auto) 79.2 H Lymph % (Auto) 12.1 L [place] % (Auto) 7.5 Eos % (Auto) 0.4 Baso % (Auto) 0.8 Neut # 10.6 H Lymph # 1.6 [place] # 1.0 H Eos # 0.0 Baso # 0.1 Sodium 129 L Potassium 5.1 H Chloride 91 L Carbon Dioxide 27 Anion Gap 16 BUN 37 H Creatinine 2.1 H Est GFR ( Amer) 40 Est GFR (Non-Af Amer) 33 POC Glucose (mg/dL) Random Glucose 649 H* D Lactic Acid 1.1 Calcium 9.2 Urine Color Urine Clarity Urine pH Ur Specific [place] Urine Protein Urine Glucose (UA) Urine Ketones Urine Blood Urine Nitrate Urine Bilirubin Urine Urobilinogen Ur Leukocyte Esterase Urine RBC (Auto) Urine Microscopic WBC Ur Squamous Epith Cells 08/02/17 08/02/17 21:26 21:28 WBC RBC Hgb Hct MCV MCH MCHC RDW Plt Count MPV Neut % (Auto) Lymph % (Auto) [place] % (Auto) Eos % (Auto) Baso % (Auto) Neut # Lymph # [place] # Eos # Baso # Sodium Potassium Chloride Carbon Dioxide Anion Gap BUN Creatinine Est GFR ( Amer) Est GFR (Non-Af Amer) POC Glucose (mg/dL) > 500 H* Random Glucose Lactic Acid Calcium Urine Color Straw Urine Clarity Clear Urine pH 6.0 Ur Specific [place] 1.021 Urine Protein 100 Urine Glucose (UA) >=500 Urine Ketones Negative Urine Blood Small Urine Nitrate Negative Urine Bilirubin Negative Urine Urobilinogen 0.2-1.0 Ur Leukocyte Esterase Neg Urine RBC (Auto) 12 H Urine Microscopic WBC 3 Ur Squamous Epith Cells < 1 Assessment & Plan - Assessment and Plan (Free Text) Assessment: 56 year old male with uncontrolled DM and hyperglycemia presents to ED with wound to right fifth digit secondary to ischemia Plan: Patient seen and evaluated Charts, labs and vitals reviewed; patient afebrile, WBC 13.4, glucose 649 Plan discussed with attending Dr. Mahoney Wound dressed with betadine soaked gauze and faisal Xrays taken and reviewed: No acute signs of osteomyelitis noted to osseous structures of right fifth digit at this time. Diffuse calcifications noted to vasculature of right foot Patient given IV stat dose Zosyn in ED Dr. Murray consulted Dr. Roman Galicia consulted Patient to be admitted to floors for further vascular workup and treatment of hyperglycemic state No surgical or wound care treatment planned at this time Podiatry will continue to follow while patient in house - Date & Time Date: 08/02/17 Time: 21:30
[2017-08-03] MEDS ORDERED: Povidone Iodine Topical 10% Sol ONE (09:25)
--- NOTE | 2017-08-03 10:02 | CP.PCM.CON ---
History of Present Illness - History of Present Illness History of Present Illness: I was asked to see patient for evaluation of lower extremity vascular disease. Patient is a 56 year old male with PMH HTN, DM who presents with pain of the 5th toe of the right foot. The patient states he was wering a boot that was too tight. He had an abrasion of the toe. He presents for progressive symptoms. He has mild intermittent claudication of the lower extremities. Review of Systems - Constitutional Constitutional: absent: As Per HPI, Anorexia, Chills, Daytime Sleepiness, Excessive Sweating, Fatigue, Fever, Frequent Falls, Headache, Increased Appetite , Lethargy, Malaise, Night Sweats, Snoring, Sleep Apnea, Weight Gain, Weight Loss, Weakness, Other - EENT Eyes: absent: As Per HPI, Blind Spots, Blurred Vision, Change in Vision, Decreased Night Vision, Diplopia, Discharge, Dry Eye, Exophthalmos, Floaters, Irritation, Itchy Eyes, Loss of Peripheral Vision, Pain, Photophobia, Requires Corrective Lenses, Sees Flashes, Spots in Vision, Tunnel Vision, Other Visual Disturbances, Loss of Vision, Other Ears: absent: As Per HPI, Decreased Hearing, Ear Discharge, Ear Pain, Tinnitus, Abnormal Hearing, Disequilibrium, Dizziness, Other Nose/Mouth/Throat: absent: As Per HPI, Epistaxis, Nasal Congestion, Nasal Discharge, Nasal Obstruction, Nasal Trauma, Nose Pain, Post Nasal Drip, Sinus Pain, Sinus Pressure, Bleeding Gums, Change in Voice, Dental Pain, Dry Mouth, Dysphagia, Halitosis, Hoarsness, Lip Swelling, Mouth Lesions, Mouth Pain, Odynophagia, Sore Throat, Throat Swelling, Tongue Swelling, Facial Pain, Neck Pain, Neck Mass, Other - Cardiovascular Cardiovascular: absent: As Per HPI, Acrocyanosis, Chest Pain, Chest Pain at Rest , Chest Pain with Activity, Claudication, Diaphoresis, Dyspnea, Dyspnea on Exertion, Edema, Irregular Heart Rhythm, Pain Radiating to Arm/Neck/Jaw, Leg Edema, Leg Ulcers, Lightheadedness, Orthopnea, Palpitations, Paroxysmal Nocturnal Dyspnea, Pedal Edema, Radiating Pain, Rapid Heart Rate, Slow Heart Rate, Syncope, Other - Respiratory Respiratory: absent: As Per HPI, Cough, Dyspnea, Hemoptysis, Dyspnea on Exertion , Wheezing, Snoring, Stridor, Pain on Inspiration, Chest Congestion, Excessive Mucous Production, Change in Mucous Color, Pain with Coughing, Other - Gastrointestinal Gastrointestinal: absent: As Per HPI, Abdominal Pain, Belching, Bloating, Change in Bowel Habits, Change in Stool Character, Coffee Ground Emesis, Constipation, Cramping, Diarrhea, Dyspepsia, Dysphagia, Early Satiety, Excessive Flatus, Fecal Incontinence, Heartburn, Hematemesis, Hematochezia, Loose Stools, Melena, Nausea, Odynophagia, Temesmus, Vomiting, Other - Genitourinary Genitourinary: absent: As Per HPI, Change in Urinary Stream, Difficulty Urinating, Dysuria, Flank Pain, Hematuria, Pyuria, Nocturia, Urinary Incontinence, Urinary Frequency, Urinary Hesitance, Urinary Urgency, Voiding Freq/Small Amts, Freq UTI, Hx Renal/Bladder Calculi, Hx /Renal Surgery, Bladder Distension, Other - Musculoskeletal Musculoskeletal: Radiating Pain into Limb - Integumentary Integumentary: Skin Ulcer - Neurological Neurological: absent: As Per HPI, Abnormal Gait, Abnormal Hearing, Abnormal Movements, Abnormal Speech, Behavioral Changes, Burning Sensations, Confusion, Convulsions, Disequilibrium, Dizziness, Numbness, Focal Weakness, Frequent Falls , Headaches, Lack of Coordination, Loss of Vision, Memory Loss, Paresthesias, Radicular Pain, Restless Legs, Sensory Deficit, Syncope, Tingling, Tremor, Vertigo, Weakness, Other Visual Disturbances, Other - Psychiatric Psychiatric: absent: As Per HPI, Abnormal Sleep Pattern, Anhedonia, Anxiety, Auditory Hallucinations, Behavioral Changes, Change in Appetite, Change in Libido, Confusion, Depression, Difficulty Concentrating, Hallucinations, Homicidal Ideation, Hopelessness, Irritability, Memory Loss, Mood Swings, Panic Attacks, Paranoia, Suicidal Ideation, Visual Hallucinations, Tactile Hallucinations, Other - Endocrine Endocrine: absent: As Per HPI, Change in Body Appearance, Change in Libido, Cold Intolorance, Deepening of Voice, Excessive Sweating, Fatigue, Flushing, Heat Intolorance, Increase in Ring/Shoe/Hat Size, Palpitations, Polydipsia, Polyphagia, Polyuria, Other - Hematologic/Lymphatic Hematologic: absent: As Per HPI, Easy Bleeding, Easy Bruising, Lymphadenopathy, Other Past Patient History - Infectious Disease Hx of Infectious Diseases: None - Past Medical History & Family History Past Medical History?: Yes - Past Social History Smoking Status: Never Smoked - CARDIAC Hx Cardiac Disorders: Yes Hx Hypertension: Yes - PULMONARY Hx Respiratory Disorders: No - NEUROLOGICAL Hx Neurological Disorder: No - HEENT Hx HEENT Problems: No - RENAL Hx Chronic Kidney Disease: No - ENDOCRINE/METABOLIC Hx Endocrine Disorders: Yes Hx Diabetes Mellitus Type 1: Yes - HEMATOLOGICAL/ONCOLOGICAL Hx Human Immunodeficiency Virus (HIV): No - INTEGUMENTARY Hx Dermatological Problems: No - MUSCULOSKELETAL/RHEUMATOLOGICAL Hx Musculoskeletal Disorders: No Hx Falls: Yes (6 months ago "when sugar was too high") - GASTROINTESTINAL Hx Gastrointestinal Disorders: Yes Hx Nausea: Yes Hx Vomiting: Yes - GENITOURINARY/GYNECOLOGICAL Hx Genitourinary Disorders: No - PSYCHIATRIC Hx Psychophysiologic Disorder: No Hx Substance Use: Yes - SURGICAL HISTORY Hx Surgeries: Yes Hx Open Reduction Internal Fixation: Yes (Left Tib/Fib fracture) - ANESTHESIA Hx Anesthesia: Yes Hx Anesthesia Reactions: No Hx Malignant Hyperthermia: No Meds Allergies/Adverse Reactions: Allergies Allergy/AdvReac Type Severity Reaction Status Date / Time No Known Allergies Allergy Verified 07/20/17 17:56 - Medications Medications: Current Medications Amlodipine Besylate (Norvasc) 5 mg PO DAILY [facility] Last Admin: 08/03/17 09:00 Dose: 5 mg Enoxaparin Sodium (Lovenox) 40 mg SC DAILY [facility] PRN Reason: Protocol Insulin Human Regular (Humulin R) 0 units SC ACHS [facility] PRN Reason: Protocol Metoprolol Tartrate (Lopressor) 25 mg PO Q12 [facility] Last Admin: 08/03/17 09:00 Dose: 25 mg Oxycodone/Acetaminophen (Percocet 5/325 Mg Tab) 1 tab PO Q4 PRN PRN Reason: Pain, severe (8-10) Stop: 08/06/17 06:31 Physical Exam - Constitutional Appears: Non-toxic - Head Exam Head Exam: NORMAL INSPECTION - Eye Exam Eye Exam: Normal appearance - ENT Exam ENT Exam: Mucous Membranes Moist - Neck Exam Neck exam: Positive for: Full Rom - Respiratory Exam Respiratory Exam: NORMAL BREATHING PATTERN - Cardiovascular Exam Cardiovascular Exam: REGULAR RHYTHM - GI/Abdominal Exam GI & Abdominal Exam: Normal Bowel Sounds - Rectal Exam Rectal Exam: Deferred - Extremities Exam Extremities exam: Negative for: pedal edema - Back Exam Back exam: NORMAL INSPECTION - Neurological Exam Neurological exam: Alert, Oriented x3 - Psychiatric Exam Psychiatric exam: Normal Affect - Skin Skin Exam: Normal Color Results - Vital Signs Recent Vital Signs: Last Vital Signs Temp 98.4 F 08/03/17 07:38 Pulse 82 08/03/17 09:00 Resp 18 08/03/17 07:38 BP 156/82 H 08/03/17 09:00 Pulse Ox 97 08/03/17 07:38 - Labs Result Diagrams: 08/02/17 21:26 08/02/17 21:26 Labs: Laboratory Results - last 24 hr 08/02/17 08/02/17 08/02/17 21:26 21:26 21:26 WBC 13.4 H RBC 4.58 Hgb 13.9 D Hct 41.8 MCV 91.2 MCH 30.4 MCHC 33.4 RDW 12.7 Plt Count 215 MPV 8.1 Neut % (Auto) 79.2 H Lymph % (Auto) 12.1 L [place] % (Auto) 7.5 Eos % (Auto) 0.4 Baso % (Auto) 0.8 Neut # 10.6 H Lymph # 1.6 Rankin # 1.0 H Eos # 0.0 Baso # 0.1 Sodium 129 L Potassium 5.1 H Chloride 91 L Carbon Dioxide 27 Anion Gap 16 BUN 37 H Creatinine 2.1 H Est GFR ( Amer) 40 Est GFR (Non-Af Amer) 33 POC Glucose (mg/dL) Random Glucose 649 H* D Lactic Acid 1.1 Calcium 9.2 Urine Color Urine Clarity Urine pH Ur Specific [place] Urine Protein Urine Glucose (UA) Urine Ketones Urine Blood Urine Nitrate Urine Bilirubin Urine Urobilinogen Ur Leukocyte Esterase Urine RBC (Auto) Urine Microscopic WBC Ur Squamous Epith Cells 08/02/17 08/02/17 21:26 21:28 WBC RBC Hgb Hct MCV MCH MCHC RDW Plt Count MPV Neut % (Auto) Lymph % (Auto) [place] % (Auto) Eos % (Auto) Baso % (Auto) Neut # Lymph # [place] # Eos # Baso # Sodium Potassium Chloride Carbon Dioxide Anion Gap BUN Creatinine Est GFR ( Amer) Est GFR (Non-Af Amer) POC Glucose (mg/dL) > 500 H* Random Glucose Lactic Acid Calcium Urine Color Straw Urine Clarity Clear Urine pH 6.0 Ur Specific [place] 1.021 Urine Protein 100 Urine Glucose (UA) >=500 Urine Ketones Negative Urine Blood Small Urine Nitrate Negative Urine Bilirubin Negative Urine Urobilinogen 0.2-1.0 Ur Leukocyte Esterase Neg Urine RBC (Auto) 12 H Urine Microscopic WBC 3 Ur Squamous Epith Cells < 1 - EKG Data EKG Interpreted by: Myself Assessment & Plan (1) Diabetic ulcer of toe Assessment and Plan: patient has DM which has risks for PAD. recommend CT angiogram of the lower extremities. Status: Acute (2) Hyperlipidemia Assessment and Plan: statin therapy Status: Chronic (3) Hypertension Assessment and Plan: blood pressure control Status: Chronic
--- NOTE | 2017-08-03 10:27 | RAD ---
HISTORY: admit COMPARISON: No prior. FINDINGS: LUNGS: No active pulmonary disease. PLEURA: No significant pleural effusion identified, no pneumothorax apparent. CARDIOVASCULAR: Normal. OSSEOUS STRUCTURES: No significant abnormalities. VISUALIZED UPPER ABDOMEN: Normal. OTHER FINDINGS: None. IMPRESSION: No significant interval cardiopulmonary disease appreciable.
[2017-08-03] MEDS: Insulin Regular 100 units/ml SC SCH ×3 (11:33→22:20)
--- NOTE | 2017-08-03 11:38 | RAD ---
PROCEDURE: Right Foot Radiographs. HISTORY: 5th toe pain COMPARISON: None. FINDINGS: BONES: Normal. No fracture. JOINTS: Normal. SOFT TISSUES: Pes calcific calcification noted at the plantar foot soft tissues as well as anterior and posterior ankle soft tissues incidentally. OTHER FINDINGS: None. IMPRESSION: No acute fracture or dislocation. Vascular calcifications are identified soft tissues as discussed above.
[2017-08-03] MEDS: Enoxaparin 40 mg Syringe SC SCH (12:15)
--- NOTE | 2017-08-03 16:44 | CP.PCM.PN ---
Subjective - Date & Time of Evaluation Date of Evaluation: 08/03/17 Time of Evaluation: 16:43 - Subjective Subjective: I D NOTE PATIENT EXAMINED ,CHART REVIEWED ANTIBIOTIC ORDERS GIVEN NEEDS DIABETIC CONTROL Objective - Vital Signs/Intake and Output Vital Signs (last 24 hours): Temp Pulse Resp BP Pulse Ox 98.6 F 76 18 138/82 99 08/03/17 16:09 08/03/17 16:09 08/03/17 16:09 08/03/17 16:08/03/17 16:09 - Medications Medications: Current Medications Amlodipine Besylate (Norvasc) 5 mg PO DAILY [facility] Last Admin: 08/03/17 09:00 Dose: 5 mg Enoxaparin Sodium (Lovenox) 40 mg SC DAILY [facility] PRN Reason: Protocol Last Admin: 08/03/17 12:15 Dose: 40 mg Clindamycin Phosphate 600 mg/ (Sodium Chloride) 54 mls @ 54 mls/hr IVPB Q8 [facility] Piperacillin Sod/Tazobactam (Sod 2.25 gm/ Sodium Chloride) 100 mls @ 100 mls/ hr IVPB Q12 [facility] Insulin Human Regular (Humulin R) 0 units SC ACHS [facility] PRN Reason: Protocol Last Admin: 08/03/17 16:25 Dose: Not Given Metoprolol Tartrate (Lopressor) 25 mg PO Q12 [facility] Last Admin: 08/03/17 09:00 Dose: 25 mg Oxycodone/Acetaminophen (Percocet 5/325 Mg Tab) 1 tab PO Q4 PRN PRN Reason: Pain, severe (8-10) Stop: 08/06/17 06:31 - Labs Labs: 08/02/17 21:26 08/02/17 21:26
[2017-08-03 17:23] LABS: CALCIUM 8.4 mg/dL (8.4-10.2); POTASSIUM 4.7 MMOL/L (3.6-5.0)
--- NOTE | 2017-08-03 17:24 | CP.PCM.PN ---
Subjective - Date & Time of Evaluation Date of Evaluation: 08/03/17 Time of Evaluation: 15:30 - Subjective Subjective: 56 year old male seen at bedside for ulceration of right fifth digit. Patient states that his pain is decreased today. Denies any further pedal complaints at this time. Denies N/V/F/C/CP/SOB Objective - Vital Signs/Intake and Output Vital Signs (last 24 hours): Temp Pulse Resp BP Pulse Ox 98.6 F 76 18 138/82 99 08/03/17 16:08/03/17 16:08/03/17 16:08/03/17 16:08/03/17 16:09 - Medications Medications: Current Medications Amlodipine Besylate (Norvasc) 5 mg PO DAILY [facility] Last Admin: 08/03/17 09:00 Dose: 5 mg Enoxaparin Sodium (Lovenox) 40 mg SC DAILY [facility] PRN Reason: Protocol Last Admin: 08/03/17 12:15 Dose: 40 mg Clindamycin Phosphate 600 mg/ (Sodium Chloride) 104 mls @ 104 mls/hr IVPB Q8 [facility] Piperacillin Sod/Tazobactam (Sod 2.25 gm/ Sodium Chloride) 100 mls @ 100 mls/ hr IVPB Q12 [facility] Insulin Human Regular (Humulin R) 0 units SC ACHS [facility] PRN Reason: Protocol Last Admin: 08/03/17 16:25 Dose: Not Given Metoprolol Tartrate (Lopressor) 25 mg PO Q12 [facility] Last Admin: 08/03/17 09:00 Dose: 25 mg Oxycodone/Acetaminophen (Percocet 5/325 Mg Tab) 1 tab PO Q4 PRN PRN Reason: Pain, severe (8-10) Stop: 08/06/17 06:31 - Labs Labs: 08/02/17 21:26 08/02/17 21:26 - Constitutional Appears: Well, Non-toxic, No Acute Distress - Extremities Exam Additional comments: LE focused exam: Vasc: DP pulses non-palpable b/l. PT pulse only palpable 2/4 to left foot. CFT > 3 seconds to all digits b/l. Skin temperature cool to cool from proximal to distal > right side. No edema noted at this time b/l Neuro: Epicritic and protective sesation grossly diminished b/l Derm: Approx. 1 cm x 1 cm wound noted to lateral aspect of patient's right fifth digit. Wound is covered over completely with a scab. No drainage expressed , no malodor and no periwound erythema present at this time. Dusky skin coloration noted to entirety of right fifth digit most consistently resembling ischemic skin changes. Otherwise no open lesions, wounds, maceration, xerosis, abnormal pigmentation or abnormal growths noted b/l. MSK: POP to area of wound - Neurological Exam Neurological Exam: Alert, Awake, Oriented x3 - Psychiatric Exam Psychiatric exam: Normal Affect, Normal Mood Assessment and Plan - Assessment and Plan (Free Text) Assessment: 56 year old male seen at bedside for diabetic ulceration of right fifth digit with ischemic changes noted Plan: Patient seen and evaluated at bedside Charts, labs, vitals reviewed Daily CBC, BMP ordered Plan discussed with attending Dr. Mahoney Wound dressed with betadine soaked gauze, DSD No signs of OM on xray while in ED Per Dr. Noble CTA ordered No IV abx at this time No surgical intervention planned at this time Podiatry will continue to follow while in house
[2017-08-03] MEDS: Clindamycin 600 MG in Sodium Chloride 0.9% 100 ML IVPB SCH (18:33)
--- NOTE | 2017-08-03 19:26 | CP.PCM.HP ---
History of Present Illness - History of Present Illness History of Present Illness: This is a 56 y/o male admitted for uncontrolled DM 2. 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 Past Patient History - Infectious Disease Hx of Infectious Diseases: None - Past Medical History & Family History Past Medical History?: Yes - Past Social History Smoking Status: Never Smoked - CARDIAC Hx Cardiac Disorders: Yes Hx Hypertension: Yes - PULMONARY Hx Respiratory Disorders: No - NEUROLOGICAL Hx Neurological Disorder: No - HEENT Hx HEENT Problems: No - RENAL Hx Chronic Kidney Disease: No - ENDOCRINE/METABOLIC Hx Endocrine Disorders: Yes Hx Diabetes Mellitus Type 1: Yes - HEMATOLOGICAL/ONCOLOGICAL Hx Human Immunodeficiency Virus (HIV): No - INTEGUMENTARY Hx Dermatological Problems: No - MUSCULOSKELETAL/RHEUMATOLOGICAL Hx Musculoskeletal Disorders: No Hx Falls: Yes (6 months ago "when sugar was too high") - GASTROINTESTINAL Hx Gastrointestinal Disorders: Yes Hx Nausea: Yes Hx Vomiting: Yes - GENITOURINARY/GYNECOLOGICAL Hx Genitourinary Disorders: No - PSYCHIATRIC Hx Psychophysiologic Disorder: No Hx Substance Use: Yes - SURGICAL HISTORY Hx Surgeries: Yes Hx Open Reduction Internal Fixation: Yes (Left Tib/Fib fracture) - ANESTHESIA Hx Anesthesia: Yes Hx Anesthesia Reactions: No Hx Malignant Hyperthermia: No Meds Allergies/Adverse Reactions: Allergies Allergy/AdvReac Type Severity Reaction Status Date / Time No Known Allergies Allergy Verified 07/20/17 17:56 Results - Vital Signs Recent Vital Signs: Last Vital Signs Temp 98.6 F 08/03/17 16:09 Pulse 76 08/03/17 16:09 Resp 18 08/03/17 16:09 BP 138/82 08/03/17 16:09 Pulse Ox 99 08/03/17 16:09 - Labs Result Diagrams: 08/02/17 21:26 08/03/17 16:30 Labs: Laboratory Results - last 24 hr 08/02/17 08/02/17 08/02/17 21:26 21:26 21:26 WBC 13.4 H RBC 4.58 Hgb 13.9 D Hct 41.8 MCV 91.2 MCH 30.4 MCHC 33.4 RDW 12.7 Plt Count 215 MPV 8.1 Neut % (Auto) 79.2 H Lymph % (Auto) 12.1 L [place] % (Auto) 7.5 Eos % (Auto) 0.4 Baso % (Auto) 0.8 Neut # 10.6 H Lymph # 1.6 [place] # 1.0 H Eos # 0.0 Baso # 0.1 Sodium 129 L Potassium 5.1 H Chloride 91 L Carbon Dioxide 27 Anion Gap 16 BUN 37 H Creatinine 2.1 H Est GFR ( Amer) 40 Est GFR (Non-Af Amer) 33 POC Glucose (mg/dL) Random Glucose 649 H* D Lactic Acid 1.1 Calcium 9.2 Urine Color Urine Clarity Urine pH Ur Specific [place] Urine Protein Urine Glucose (UA) Urine Ketones Urine Blood Urine Nitrate Urine Bilirubin Urine Urobilinogen Ur Leukocyte Esterase Urine RBC (Auto) Urine Microscopic WBC Ur Squamous Epith Cells 08/02/17 08/02/17 08/03/17 21:26 21:28 06:20 WBC RBC Hgb Hct MCV MCH MCHC RDW Plt Count MPV Neut % (Auto) Lymph % (Auto) [place] % (Auto) Eos % (Auto) Baso % (Auto) Neut # Lymph # [place] # Eos # Baso # Sodium Potassium Chloride Carbon Dioxide Anion Gap BUN Creatinine Est GFR ( Amer) Est GFR (Non-Af Amer) POC Glucose (mg/dL) > 500 H* 247 H Random Glucose Lactic Acid Calcium Urine Color Straw Urine Clarity Clear Urine pH 6.0 Ur Specific [place] 1.021 Urine Protein 100 Urine Glucose (UA) >=500 Urine Ketones Negative Urine Blood Small Urine Nitrate Negative Urine Bilirubin Negative Urine Urobilinogen 0.2-1.0 Ur Leukocyte Esterase Neg Urine RBC (Auto) 12 H Urine Microscopic WBC 3 Ur Squamous Epith Cells < 1 08/03/17 08/03/17 15:28 16:30 WBC RBC Hgb Hct MCV MCH MCHC RDW Plt Count MPV Neut % (Auto) Lymph % (Auto) [place] % (Auto) Eos % (Auto) Baso % (Auto) Neut # Lymph # [place] # Eos # Baso # Sodium 134 Potassium 4.7 Chloride 97 L Carbon Dioxide 28 Anion Gap 14 BUN 32 H Creatinine 1.8 H Est GFR ( Amer) 48 Est GFR (Non-Af Amer) 40 POC Glucose (mg/dL) 124 H Random Glucose 217 H Lactic Acid Calcium 8.4 Urine Color Urine Clarity Urine pH Ur Specific [place] Urine Protein Urine Glucose (UA) Urine Ketones Urine Blood Urine Nitrate Urine Bilirubin Urine Urobilinogen Ur Leukocyte Esterase Urine RBC (Auto) Urine Microscopic WBC Ur Squamous Epith Cells
[2017-08-03] MEDS: Oxycodone/Acetaminophen 5/325 mg Tab PO PRN (19:37)
[2017-08-03] MEDS: Insulin Detemir 100 Units/ml Inj SC SCH (22:19)
[2017-08-04] MEDS: Clindamycin 600 MG in Sodium Chloride 0.9% 100 ML IVPB SCH ×3 (00:37→16:11)
[2017-08-04] MEDS ORDERED: Glucagon Recombinant 1 mg Inj IM PRN (01:41)
[2017-08-04] MEDS ORDERED: Dextrose 50% SYRINGE Inj (50 ml) IV PRN (01:41)
[2017-08-04] MEDS ORDERED: Insulin Regular 100 units/ml SC ONE ×2 (01:42→01:47)
[2017-08-04 08:04] LABS: ALB/GLOB RATIO 0.9 (1.0-2.1); BILIRUBIN,TOTAL 0.7 mg/dl (0.2-1.3); CALCIUM 9.1 mg/dL (8.4-10.2); POTASSIUM 4.3 MMOL/L (3.6-5.0); TOTAL PROTEIN 6.7 G/DL (6.3-8.2)
[2017-08-04 08:33] LABS: THYROID STIMULATING HORMONE 4.15 mIU/ML (0.46-4.68)
[2017-08-04] MEDS: Insulin Regular 100 units/ml SC SCH ×5 (08:33→22:00)
[2017-08-04] MEDS: Enoxaparin 40 mg Syringe SC SCH (09:36)
[2017-08-04] MEDS: Oxycodone/Acetaminophen 5/325 mg Tab PO PRN ×3 (09:58→20:46)
[2017-08-04] MEDS: Insulin Lispro Mix 75/25 100 units/ml (HumaLog) 10ml SC SCH ×2 (12:16→16:12)
--- NOTE | 2017-08-04 14:34 | CON ---
INFECTIOUS DISEASE CONSULTATION DATE: HISTORY OF PRESENT ILLNESS: Patient is a 56-year-old male, who was admitted with a past history of type 1 diabetes and has a diabetic ulcer on the right fifth digit, which apparently started about 3 weeks ago and worsened. He states it was from the shoe rubbing on his foot. He denies any history of fever or chills. He also had been checked in [facility] and was treated for this, but as the pain has become worse and the lesion became worse, he was also being seen by pain management, he was admitted. Patient also has uncontrolled diabetes mellitus as noted by his blood sugar, which was over 600 and obviously, he is poorly compliant with his diabetes medications. PHYSICAL EXAMINATION: GENERAL: Patient is alert and cooperative and oriented. HEENT: Within normal limits. NECK: Supple. LUNGS: He has some decreased breath sounds at the right base. HEART: Regular sinus rhythm. ABDOMEN: Soft. Positive bowel sounds. EXTREMITIES: Lower extremities, he has poor pulses to both lower extremities. He has an area of tenderness over the right fifth digit and has a scabbing over that lesion; x-ray showed probably non-osteomyelitis. LABORATORY DATA: Sodium 129, potassium 5.1, chloride is 91, creatinine 2.1, GFR is 33, blood sugar is 649, calcium 9.2. White count 13.4; hemoglobin 13.9, he has a left shift. Also, his platelets are 215. Foot x-ray, no acute fracture or dislocation. Vascular calcifications are identified. Soft tissues, there are some swelling. IMPRESSION: Diabetic neuropathy, diabetic vascular insufficiency, and diabetic renal insufficiency along with ulceration of the fifth digit on the right foot. At this point, patient will be treated with IV antibiotics and podiatry care. I have started Zosyn 2.25 g IV piggyback q. 12 and clindamycin 600 mg IV piggyback q. 12. We will follow the case along with you. Richard Jamison MD
--- NOTE | 2017-08-04 16:26 | CP.PCM.PN ---
Subjective - Date & Time of Evaluation Date of Evaluation: 08/04/17 Time of Evaluation: 16:24 - Subjective Subjective: 56 year old male seen at bedside for ulceration of right fifth digit. Patient states that his pain is decreased today. Denies any further pedal complaints at this time. States that he went for arterial duplex scan this morning. Denies N/V /F/C/CP/SOB Objective - Vital Signs/Intake and Output Vital Signs (last 24 hours): Temp Pulse Resp BP Pulse Ox 97.9 F 83 20 166/80 H 100 08/04/17 16:21 08/04/17 16:21 08/04/17 16:21 08/04/17 16:21 08/04/17 16:21 - Medications Medications: Current Medications Amlodipine Besylate (Norvasc) 5 mg PO DAILY [facility] Last Admin: 08/04/17 09:37 Dose: 5 mg Dextrose (Dextrose 50% Inj) 0 ml IV STAT PRN; Protocol PRN Reason: Hyglycemia Protocol Dextrose (Glutose 15) 0 gm PO ONCE PRN; Protocol PRN Reason: Hypoglycemia Protocol Enoxaparin Sodium (Lovenox) 40 mg SC DAILY [facility] PRN Reason: Protocol Last Admin: 08/04/17 09:36 Dose: 40 mg Glucagon (Glucagen Diagnostic Kit) 0 mg IM STAT PRN; Protocol PRN Reason: Hypoglycemia Protocol Clindamycin Phosphate 600 mg/ (Sodium Chloride) 104 mls @ 104 mls/hr IVPB Q8 [facility] Last Admin: 08/04/17 16:11 Dose: 104 mls/hr Piperacillin Sod/Tazobactam (Sod 2.25 gm/ Sodium Chloride) 100 mls @ 100 mls/ hr IVPB Q12 [facility] Last Admin: 08/04/17 10:41 Dose: 100 mls/hr Insulin Detemir (Levemir) 20 units SC HS [facility] Last Admin: 08/03/17 22:19 Dose: 20 unit Insulin Human Regular (Humulin R) 0 units SC Q4 [facility] PRN Reason: Protocol Last Admin: 08/04/17 14:31 Dose: 12 unit Insulin Lispro Protam/Lispro Human (Humalog Mix 75/25) 10 units SC BID [facility] Last Admin: 08/04/17 16:12 Dose: 10 units Metoprolol Tartrate (Lopressor) 25 mg PO Q12 [facility] Last Admin: 08/04/17 09:36 Dose: 25 mg Oxycodone/Acetaminophen (Percocet 5/325 Mg Tab) 1 tab PO Q4 PRN PRN Reason: Pain, severe (8-10) Stop: 08/06/17 06:31 Last Admin: 08/04/17 15:48 Dose: 1 tab - Labs Labs: 08/02/17 21:26 08/04/17 06:30 - Constitutional Appears: Well, Non-toxic, No Acute Distress - Extremities Exam Additional comments: LE focused exam: Vasc: DP pulses non-palpable b/l. PT pulse only palpable 2/4 to left foot. CFT > 3 seconds to all digits b/l. Skin temperature cool to cool from proximal to distal > right side. No edema noted at this time b/l Neuro: Epicritic and protective sesation grossly diminished b/l Derm: Approx. 1 cm x 1 cm wound noted to lateral aspect of patient's right fifth digit. Wound is covered over completely with a scab. No drainage expressed , no malodor and no periwound erythema present at this time. Dusky skin coloration noted to entirety of right fifth digit most consistently resembling ischemic skin changes. Otherwise no open lesions, wounds, maceration, xerosis, abnormal pigmentation or abnormal growths noted b/l. MSK: POP to area of wound - Neurological Exam Neurological Exam: Alert, Awake, Oriented x3 - Psychiatric Exam Psychiatric exam: Normal Affect, Normal Mood Assessment and Plan - Assessment and Plan (Free Text) Assessment: 56 year old male seen at bedside for diabetic ulceration of right fifth digit with ischemic changes noted Plan: Patient seen and evaluated at bedside Charts, labs, vitals reviewed Plan discussed with attending Dr. Mahoney Wound dressed with betadine soaked gauze, DSD No signs of OM on xray while in ED Arterial duplex scan results pending No IV abx at this time No surgical intervention planned at this time Podiatry will continue to follow while in house
[2017-08-04] MEDS: Insulin Detemir 100 Units/ml Inj SC SCH (22:53)
--- NOTE | 2017-08-04 23:18 | CP.PCM.PN ---
Subjective - Date & Time of Evaluation Date of Evaluation: 08/04/17 Time of Evaluation: 10:00 - Subjective Subjective: Patient continues to have elevated FBS Started on levemir. Has no chest pain or SOB. Objective - Vital Signs/Intake and Output Vital Signs (last 24 hours): Temp Pulse Resp BP Pulse Ox 97.9 F 92 H 20 159/77 H 100 08/04/17 16:21 08/04/17 21:19 08/04/17 16:21 08/04/17 21:19 08/04/17 16:21 - Medications Medications: Current Medications Amlodipine Besylate (Norvasc) 5 mg PO DAILY [facility] Last Admin: 08/04/17 09:37 Dose: 5 mg Dextrose (Dextrose 50% Inj) 0 ml IV STAT PRN; Protocol PRN Reason: Hyglycemia Protocol Dextrose (Glutose 15) 0 gm PO ONCE PRN; Protocol PRN Reason: Hypoglycemia Protocol Enoxaparin Sodium (Lovenox) 40 mg SC DAILY [facility] PRN Reason: Protocol Last Admin: 08/04/17 09:36 Dose: 40 mg Glucagon (Glucagen Diagnostic Kit) 0 mg IM STAT PRN; Protocol PRN Reason: Hypoglycemia Protocol Clindamycin Phosphate 600 mg/ (Sodium Chloride) 104 mls @ 104 mls/hr IVPB Q8 [facility] Last Admin: 08/04/17 16:11 Dose: 104 mls/hr Piperacillin Sod/Tazobactam (Sod 2.25 gm/ Sodium Chloride) 100 mls @ 100 mls/ hr IVPB Q12 [facility] Last Admin: 08/04/17 21:20 Dose: 100 mls/hr Insulin Detemir (Levemir) 20 units SC HS [facility] Last Admin: 08/04/17 22:53 Dose: 20 unit Insulin Human Regular (Humulin R) 0 units SC Q4 [facility] PRN Reason: Protocol Last Admin: 08/04/17 22:00 Dose: Not Given Insulin Lispro Protam/Lispro Human (Humalog Mix 75/25) 10 units SC BID [facility] Last Admin: 08/04/17 16:12 Dose: 10 units Metoprolol Tartrate (Lopressor) 25 mg PO Q12 [facility] Last Admin: 08/04/17 21:19 Dose: 25 mg Oxycodone/Acetaminophen (Percocet 5/325 Mg Tab) 1 tab PO Q4 PRN PRN Reason: Pain, severe (8-10) Stop: 08/06/17 06:31 Last Admin: 08/04/17 20:46 Dose: 1 tab - Labs Labs: 08/02/17 21:26 08/04/17 06:30
[2017-08-05] MEDS: Clindamycin 600 MG in Sodium Chloride 0.9% 100 ML IVPB SCH ×2 (00:15→08:46)
[2017-08-05] MEDS: Insulin Regular 100 units/ml SC SCH ×5 (01:20→17:54)
[2017-08-05] MEDS: Oxycodone/Acetaminophen 5/325 mg Tab PO PRN ×4 (03:22→21:03)
--- NOTE | 2017-08-05 06:02 | CP.PCM.PN ---
Subjective - Date & Time of Evaluation Date of Evaluation: 08/05/17 Time of Evaluation: 06:01 - Subjective Subjective: Podiatry Progress Note - Dr. Mahoney 56 year old male seen at bedside for ulceration of right fifth digit. Patient seen resting comfortably, AAOx3 and NAD. Patient denies any acute events overnight. Patient reports mild pain to his right 5th toe today. Patient denies N/V/F/D/C/SOB/calf pain. Offers no other pedal complaints at this time. Objective - Vital Signs/Intake and Output Vital Signs (last 24 hours): Temp Pulse Resp BP Pulse Ox 98.6 F 72 18 154/81 H 98 08/05/17 00:09 08/05/17 00:09 08/05/17 00:09 08/05/17 00:09 08/05/17 00:09 - Medications Medications: Current Medications Amlodipine Besylate (Norvasc) 5 mg PO DAILY [facility] Last Admin: 08/04/17 09:37 Dose: 5 mg Dextrose (Dextrose 50% Inj) 0 ml IV STAT PRN; Protocol PRN Reason: Hyglycemia Protocol Dextrose (Glutose 15) 0 gm PO ONCE PRN; Protocol PRN Reason: Hypoglycemia Protocol Enoxaparin Sodium (Lovenox) 40 mg SC DAILY [facility] PRN Reason: Protocol Last Admin: 08/04/17 09:36 Dose: 40 mg Glucagon (Glucagen Diagnostic Kit) 0 mg IM STAT PRN; Protocol PRN Reason: Hypoglycemia Protocol Clindamycin Phosphate 600 mg/ (Sodium Chloride) 104 mls @ 104 mls/hr IVPB Q8 [facility] Last Admin: 08/05/17 00:15 Dose: 104 mls/hr Piperacillin Sod/Tazobactam (Sod 2.25 gm/ Sodium Chloride) 100 mls @ 100 mls/ hr IVPB Q12 [facility] Last Admin: 08/04/17 21:20 Dose: 100 mls/hr Insulin Detemir (Levemir) 20 units SC HS [facility] Last Admin: 08/04/17 22:53 Dose: 20 unit Insulin Human Regular (Humulin R) 0 units SC Q4 [facility] PRN Reason: Protocol Last Admin: 08/05/17 01:20 Dose: Not Given Insulin Lispro Protam/Lispro Human (Humalog Mix 75/25) 10 units SC BID [facility] Last Admin: 08/04/17 16:12 Dose: 10 units Metoprolol Tartrate (Lopressor) 25 mg PO Q12 [facility] Last Admin: 08/04/17 21:19 Dose: 25 mg Oxycodone/Acetaminophen (Percocet 5/325 Mg Tab) 1 tab PO Q4 PRN PRN Reason: Pain, severe (8-10) Stop: 08/06/17 06:31 Last Admin: 08/05/17 03:22 Dose: 1 tab - Labs Labs: 08/02/17 21:26 08/04/17 06:30 - Constitutional Appears: Well, Non-toxic, No Acute Distress - Extremities Exam Additional comments: LE focused exam: Vasc: DP pulses non-palpable b/l. PT pulse only palpable 2/4 to left foot. CFT > 3 seconds to all digits b/l. Skin temperature cool to cool from proximal to distal > right side. No edema noted. Neuro: Epicritic and protective sesation grossly diminished b/l Derm: Approx. 1 cm x 1 cm wound noted to lateral aspect of patient's right fifth digit, with overlying eschar. No drainage expressed, no malodor and no periwound erythema present at this time. Dusky skin coloration noted to entirety of right fifth digit most consistently resembling ischemic skin changes , skin with shiny/waxy appearance. No maceration, purulence, fluctuance noted MSK: Mild tenderness to palpation right 5th digit - Neurological Exam Neurological Exam: Alert, Awake, Oriented x3 - Psychiatric Exam Psychiatric exam: Normal Affect, Normal Mood Assessment and Plan - Assessment and Plan (Free Text) Assessment: 56 year old male seen at bedside for ulceration right 5th digit 2/2 ischemia Plan: Patient seen and evaluated with attending, Dr. Mahoney Chart, vitals, labs reviewed = afebrile, WBC increased @ 11.1 (trending downwards, 08/02 @13.4) RLE arterial duplex reviewed: normal duplex doppler of RLE arteries MICHEL/PVR ordered Right 5th digit painted with betadine soaked gauze and dressed with DSD C/w IV abx - Zosyn No surgical intervention planned at this time Podiatry will continue to follow while in house
[2017-08-05] MEDS: Insulin Lispro Mix 75/25 100 units/ml (HumaLog) 10ml SC SCH ×2 (08:51→17:54)
[2017-08-05] MEDS: Enoxaparin 40 mg Syringe SC SCH (08:57)
--- NOTE | 2017-08-05 12:48 | US ---
PROCEDURE: Duplex ultrasound of the right lower extremity arteries. HISTORY: Ischemic changes RLE and diabetic wound RLE COMPARISON: None available. TECHNIQUE: Grayscale and duplex Doppler evaluation of the right common femoral, superficial femoral, popliteal, posterior tibial and dorsalis pedis arteries was performed.. FINDINGS: COMMON FEMORAL ARTERY: Patent. Maximal flow velocity of 119.1 cm/s. SUPERFICIAL FEMORAL ARTERY:Patent. Maximal flow velocity of 98.6 cm/s. POPLITEAL ARTERY:Patent. Maximal flow velocity of 84.5 cm/s. POSTERIOR TIBIAL ARTERY: Patent. Maximal flow velocity of 82.0 cm/s. DORSALIS PEDIS ARTERY: Patent. Maximal flow velocity of 30.6 cm/s. OTHER FINDINGS: Morphologically, unremarkable lymph nodes. IMPRESSION: Normal Duplex Doppler of the right lower extremity arteries.
[2017-08-05 14:17] LABS: HEMATOCRIT 34.4 % (35.0-51.0); MEAN CELL VOLUME 89.6 fl (80.0-94.0); MEAN CORPUSCULAR HEMOGLOBIN 30.5 pg (27.0-31.0); MEAN CORPUSCULAR HGB CONC 34.1 g/dL (33.0-37.0); RED CELL DISTRIBUTION WIDTH 12.6 % (11.5-14.5); WHITE BLOOD COUNT 11.1 K/uL (4.8-10.8)
[2017-08-05 14:27] LABS: CALCIUM 8.7 mg/dL (8.4-10.2)
[2017-08-05 14:31] LABS: POTASSIUM 5.2 MMOL/L (3.6-5.0)
--- NOTE | 2017-08-05 18:48 | CP.PCM.PN ---
Subjective - Date & Time of Evaluation Date of Evaluation: 08/05/17 Time of Evaluation: 18:45 - Subjective Subjective: aterial duplex reviewed. Normal study. No endovascular therapy is necessaary. Objective - Vital Signs/Intake and Output Vital Signs (last 24 hours): Temp Pulse Resp BP Pulse Ox 99.3 F 86 18 156/93 H 99 08/05/17 16:54 08/05/17 16:54 08/05/17 16:54 08/05/17 16:54 08/05/17 16:54 - Medications Medications: Current Medications Amlodipine Besylate (Norvasc) 5 mg PO DAILY [facility] Last Admin: 08/05/17 08:59 Dose: 5 mg Dextrose (Dextrose 50% Inj) 0 ml IV STAT PRN; Protocol PRN Reason: Hyglycemia Protocol Dextrose (Glutose 15) 0 gm PO ONCE PRN; Protocol PRN Reason: Hypoglycemia Protocol Enoxaparin Sodium (Lovenox) 40 mg SC DAILY [facility] PRN Reason: Protocol Last Admin: 08/05/17 08:57 Dose: 40 mg Glucagon (Glucagen Diagnostic Kit) 0 mg IM STAT PRN; Protocol PRN Reason: Hypoglycemia Protocol Piperacillin Sod/Tazobactam (Sod 2.25 gm/ Sodium Chloride) 100 mls @ 100 mls/ hr IVPB Q12 [facility] Last Admin: 08/05/17 08:58 Dose: 100 mls/hr Insulin Detemir (Levemir) 20 units SC HS [facility] Last Admin: 08/04/17 22:53 Dose: 20 unit Insulin Human Regular (Humulin R) 0 units SC Q4 [facility] PRN Reason: Protocol Last Admin: 08/05/17 17:54 Dose: 3 unit Insulin Lispro Protam/Lispro Human (Humalog Mix 75/25) 10 units SC BID [facility] Last Admin: 08/05/17 17:54 Dose: 10 units Metoprolol Tartrate (Lopressor) 25 mg PO Q12 [facility] Last Admin: 08/05/17 08:56 Dose: 25 mg Oxycodone/Acetaminophen (Percocet 5/325 Mg Tab) 1 tab PO Q4 PRN PRN Reason: Pain, severe (8-10) Stop: 08/06/17 06:31 Last Admin: 08/05/17 13:58 Dose: 1 tab - Labs Labs: 08/05/17 14:09 08/05/17 14:09 Assessment and Plan (1) Diabetic ulcer of toe Status: Acute (2) Hyperlipidemia Status: Chronic (3) Hypertension Status: Chronic
[2017-08-05] MEDS: Insulin Detemir 100 Units/ml Inj SC SCH ×2 (21:04→22:00)
[2017-08-05] MEDS ORDERED: Insulin Detemir 100 Units/ml Inj SC SCH (22:38)
[2017-08-06] MEDS: Insulin Regular 100 units/ml SC SCH ×6 (00:52→20:17)
[2017-08-06] MEDS: Oxycodone/Acetaminophen 5/325 mg Tab PO PRN ×4 (05:53→21:08)
--- NOTE | 2017-08-06 05:58 | CP.PCM.PN ---
Subjective - Date & Time of Evaluation Date of Evaluation: 08/06/17 Time of Evaluation: 05:57 - Subjective Subjective: Podiatry Progress Note - Dr. Mahoney 56 year old male seen at bedside for ulceration of right fifth digit. Patient seen resting comfortably, AAOx3 and NAD. Patient denies any acute events overnight. Patient denies pain to his right 5th toe today. Patient denies N/V/F/ D/C/SOB/calf pain. Offers no other pedal complaints at this time. Objective - Vital Signs/Intake and Output Vital Signs (last 24 hours): Temp Pulse Resp BP Pulse Ox 99.1 F 80 20 151/84 H 98 08/06/17 00:35 08/06/17 00:35 08/06/17 00:35 08/06/17 00:35 08/06/17 00:35 - Medications Medications: Current Medications Amlodipine Besylate (Norvasc) 5 mg PO DAILY [facility] Last Admin: 08/05/17 08:59 Dose: 5 mg Dextrose (Dextrose 50% Inj) 0 ml IV STAT PRN; Protocol PRN Reason: Hyglycemia Protocol Dextrose (Glutose 15) 0 gm PO ONCE PRN; Protocol PRN Reason: Hypoglycemia Protocol Enoxaparin Sodium (Lovenox) 40 mg SC DAILY [facility] PRN Reason: Protocol Last Admin: 08/05/17 08:57 Dose: 40 mg Glucagon (Glucagen Diagnostic Kit) 0 mg IM STAT PRN; Protocol PRN Reason: Hypoglycemia Protocol Piperacillin Sod/Tazobactam (Sod 2.25 gm/ Sodium Chloride) 100 mls @ 100 mls/ hr IVPB Q12 [facility] Last Admin: 08/05/17 21:05 Dose: 100 mls/hr Insulin Detemir (Levemir) 25 units SC HS [facility] Last Admin: 08/05/17 21:04 Dose: 25 u Insulin Human Regular (Humulin R) 0 units SC Q4 [facility] PRN Reason: Protocol Last Admin: 08/06/17 04:14 Dose: Not Given Insulin Lispro Protam/Lispro Human (Humalog Mix 75/25) 10 units SC BID [facility] Last Admin: 08/05/17 17:54 Dose: 10 units Metoprolol Tartrate (Lopressor) 25 mg PO Q12 [facility] Last Admin: 08/05/17 21:03 Dose: 25 mg Oxycodone/Acetaminophen (Percocet 5/325 Mg Tab) 1 tab PO Q4 PRN PRN Reason: Pain, severe (8-10) Stop: 08/06/17 06:31 Last Admin: 08/06/17 05:53 Dose: 1 tab - Labs Labs: 08/05/17 14:09 08/05/17 14:09 - Constitutional Appears: Well, Non-toxic, No Acute Distress - Extremities Exam Additional comments: LE focused exam: Vasc: DP pulses non-palpable b/l. PT pulse only palpable 2/4 to left foot. CFT > 3 seconds to all digits b/l. Skin temperature cool to cool from proximal to distal > right side. No edema noted. Neuro: Epicritic and protective sensation grossly diminished b/l Derm: Approx. 1 cm x 1 cm wound noted to lateral aspect of patient's right fifth digit, with overlying eschar. No drainage expressed, no malodor and no periwound erythema present at this time. Dusky skin coloration noted to entirety of right fifth digit extending proximally into 5th metatarsa, most consistently resembling ischemic skin changes, skin with shiny/waxy appearance. No maceration, purulence, fluctuance noted MSK: No tenderness to palpation right 5th digit - Neurological Exam Neurological Exam: Alert, Awake, Oriented x3 - Psychiatric Exam Psychiatric exam: Normal Affect, Normal Mood Assessment and Plan - Assessment and Plan (Free Text) Assessment: 56 year old male seen at bedside for diabetic ulceration of right fifth digit and ischemia Plan: Patient seen and evaluated Discussed with attending, Dr. Mahoney Chart, vitals, labs reviewed = afebrile Right foot wound culture (final): MRSA RLE arterial duplex reviewed: normal duplex doppler of RLE arteries MICHEL/PVR ordered, awaiting results Right 5th digit painted with betadine soaked gauze and dressed with DSD C/w IV abx - Zosyn, Vancomycin No surgical intervention planned at this time Podiatry will continue to follow while in house
[2017-08-06 06:39] LABS: ALB/GLOB RATIO 0.9 (1.0-2.1); BILIRUBIN,TOTAL 0.6 mg/dl (0.2-1.3); CALCIUM 9.3 mg/dL (8.4-10.2); POTASSIUM 4.4 MMOL/L (3.6-5.0)
[2017-08-06] MEDS: Insulin Lispro Mix 75/25 100 units/ml (HumaLog) 10ml SC SCH ×2 (09:21→17:12)
[2017-08-06] MEDS: Enoxaparin 40 mg Syringe SC SCH (09:35)
--- NOTE | 2017-08-06 11:02 | PQF DM ---
This form is a permanent part of the medical record 08/06/17 Dr. Murray, 1) Documentation of both DM I and DM II. Please clarify which is ruled in and ruled out 2) Please document any manifestations of diabetes. Documentation that the diabetes is uncontrolled and that the patient has a foot ulcer with ischemic changes noted. BUN 37->19, Creatinine 2.1->1.9, GFR 33->40->37. Clarification of your documentation is requested to better reflect the severity of illness and intensity of treatment of your patient. Indicators present: [x] Documented diagnosis of Diabetes [] Documented condition [x] A1C results: 15.8 [x] Diabetic medications [x] Elevated blood glucose [x] Nutritional consults [x] ADA diet [] Other: [] Location in the medical record that reflects the above clinical findings:[] Treatment Provided: Insulin PHYSICIAN'S RESPONSE Based on your medical judgment of the clinical indicators outlined above, are you treating this patient for a known or suspected: QUERY 1 [] Diabetes Mellitus, Type I [] Controlled [] Uncontrolled [] Diabetes Mellitus, Type II [] Controlled [] Uncontrolled QUERY 2 Diabetic complications/manifestations: [] Arthropathy (e.g., Charcot's) [] Neuropathy (e.g., gastroparesis, neuropathic ulcer, neuropathic impotence) [] Ophthalmic manifestations (e.g., blindness, cataract, glaucoma, retinopathy) [] Peripheral circulatory manifestations (e.g., angiopathy, gangrene, PVD [ with ulcer], vascular impotence) [] Skin (e.g., cellulitis, ulcer) [] Other diabetic manifestations (such as osteomyelitis)(please specify) ___ [] Clinically unable to determine [] Unknown Present On Admission (POA) Indicator: [] Present at the time of admission [] Not present at the time of admission [] Clinically Undetermined In responding to this query, please exercise your independent professional judgment. The fact that a question is asked does not imply that any particular answer is desired or expected. Thank you for your clarification on this documentation. If you have any questions please call:ext [phone] * Thank you, Sabine Harper RN [facility]
--- NOTE | 2017-08-06 11:18 | CP.PCM.PN ---
Subjective - Date & Time of Evaluation Date of Evaluation: 08/05/17 Time of Evaluation: 10:30 - Subjective Subjective: Noted better control of FBS Has no fever continues to have tenderness on the right foot wound. Objective - Vital Signs/Intake and Output Vital Signs (last 24 hours): Temp Pulse Resp BP Pulse Ox 98.3 F 83 18 128/71 96 08/06/17 08:32 08/06/17 08:32 08/06/17 08:32 08/06/17 09:34 08/06/17 08:32 - Medications Medications: Current Medications Amlodipine Besylate (Norvasc) 10 mg PO DAILY [facility] Dextrose (Dextrose 50% Inj) 0 ml IV STAT PRN; Protocol PRN Reason: Hyglycemia Protocol Dextrose (Glutose 15) 0 gm PO ONCE PRN; Protocol PRN Reason: Hypoglycemia Protocol Glucagon (Glucagen Diagnostic Kit) 0 mg IM STAT PRN; Protocol PRN Reason: Hypoglycemia Protocol Heparin Sodium (Porcine) (Heparin) 5,000 units SC Q12 [facility] PRN Reason: Protocol Piperacillin Sod/Tazobactam (Sod 2.25 gm/ Sodium Chloride) 100 mls @ 100 mls/ hr IVPB Q12 [facility] Last Admin: 08/06/17 09:35 Dose: 100 mls/hr Vancomycin HCl 1 gm/ Sodium (Chloride) 250 mls @ 166.667 mls/hr IVPB DAILY [facility] Insulin Detemir (Levemir) 25 units SC HS [facility] Last Admin: 08/05/17 21:04 Dose: 25 u Insulin Human Regular (Humulin R) 0 units SC Q4 [facility] PRN Reason: Protocol Last Admin: 08/06/17 09:21 Dose: Not Given Insulin Lispro Protam/Lispro Human (Humalog Mix 75/25) 10 units SC BID [facility] Last Admin: 08/06/17 09:21 Dose: Not Given Metoprolol Tartrate (Lopressor) 25 mg PO Q12 [facility] Last Admin: 08/06/17 09:34 Dose: 25 mg Oxycodone/Acetaminophen (Percocet 5/325 Mg Tab) 1 tab PO Q4 PRN PRN Reason: Pain, severe (8-10) Stop: 08/09/17 10:19 Pantoprazole Sodium (Protonix Ec Tab) 40 mg PO DAILY [facility] - Labs Labs: 08/05/17 14:09 08/06/17 05:50
--- NOTE | 2017-08-06 11:18 | CP.PCM.PN ---
Subjective - Date & Time of Evaluation Date of Evaluation: 08/06/17 Time of Evaluation: 09:30 - Subjective Subjective: Noted to have MRSA on the right leg wound Noted low FBS Objective - Vital Signs/Intake and Output Vital Signs (last 24 hours): Temp Pulse Resp BP Pulse Ox 98.3 F 83 18 128/71 96 08/06/17 08:32 08/06/17 08:32 08/06/17 08:32 08/06/17 09:34 08/06/17 08:32 - Medications Medications: Current Medications Amlodipine Besylate (Norvasc) 10 mg PO DAILY [facility] Dextrose (Dextrose 50% Inj) 0 ml IV STAT PRN; Protocol PRN Reason: Hyglycemia Protocol Dextrose (Glutose 15) 0 gm PO ONCE PRN; Protocol PRN Reason: Hypoglycemia Protocol Glucagon (Glucagen Diagnostic Kit) 0 mg IM STAT PRN; Protocol PRN Reason: Hypoglycemia Protocol Heparin Sodium (Porcine) (Heparin) 5,000 units SC Q12 [facility] PRN Reason: Protocol Piperacillin Sod/Tazobactam (Sod 2.25 gm/ Sodium Chloride) 100 mls @ 100 mls/ hr IVPB Q12 [facility] Last Admin: 08/06/17 09:35 Dose: 100 mls/hr Vancomycin HCl 1 gm/ Sodium (Chloride) 250 mls @ 166.667 mls/hr IVPB DAILY [facility] Insulin Detemir (Levemir) 25 units SC HS [facility] Last Admin: 08/05/17 21:04 Dose: 25 u Insulin Human Regular (Humulin R) 0 units SC Q4 [facility] PRN Reason: Protocol Last Admin: 08/06/17 09:21 Dose: Not Given Insulin Lispro Protam/Lispro Human (Humalog Mix 75/25) 10 units SC BID [facility] Last Admin: 08/06/17 09:21 Dose: Not Given Metoprolol Tartrate (Lopressor) 25 mg PO Q12 [facility] Last Admin: 08/06/17 09:34 Dose: 25 mg Oxycodone/Acetaminophen (Percocet 5/325 Mg Tab) 1 tab PO Q4 PRN PRN Reason: Pain, severe (8-10) Stop: 08/09/17 10:19 Pantoprazole Sodium (Protonix Ec Tab) 40 mg PO DAILY [facility] - Labs Labs: 08/05/17 14:09 08/06/17 05:50
[2017-08-06] MEDS: Pantoprazole 40 mg EC Tab PO SCH (11:57)
[2017-08-06] MEDS: Insulin Detemir 100 Units/ml Inj SC SCH (20:59)
[2017-08-07] MEDS: Insulin Regular 100 units/ml SC SCH ×6 (01:40→21:50)
[2017-08-07] MEDS: Oxycodone/Acetaminophen 5/325 mg Tab PO PRN ×3 (06:21→21:46)
[2017-08-07 06:27] LABS: HEMATOCRIT 37.5 % (35.0-51.0); MEAN CELL VOLUME 89.7 fl (80.0-94.0); MEAN CORPUSCULAR HEMOGLOBIN 30.3 pg (27.0-31.0); MEAN CORPUSCULAR HGB CONC 33.8 g/dL (33.0-37.0); RED CELL DISTRIBUTION WIDTH 12.5 % (11.5-14.5); WHITE BLOOD COUNT 12.5 K/uL (4.8-10.8)
[2017-08-07 06:51] LABS: CALCIUM 9.2 mg/dL (8.4-10.2); POTASSIUM 4.2 MMOL/L (3.6-5.0)
--- NOTE | 2017-08-07 07:18 | CP.PCM.PN ---
Subjective - Date & Time of Evaluation Date of Evaluation: 08/07/17 Time of Evaluation: 07:18 - Subjective Subjective: Podiatry Progress Note - Dr. Mahoney 56 year old male seen at bedside for ulceration of right fifth digit. Patient seen resting comfortably, AAOx3 and NAD. Patient denies any pain to his right foot currently; however, states pain may increase up to 9/10 during the day. Patient states he has been ambulating out of bed and to the bathroom. Patient denies N/V/F/D/C/SOB/calf pain. Offers no other pedal complaints at this time. Objective - Vital Signs/Intake and Output Vital Signs (last 24 hours): Temp Pulse Resp BP Pulse Ox 99.4 F 88 20 157/81 H 98 08/07/17 01:54 08/07/17 01:54 08/07/17 01:54 08/07/17 01:54 08/07/17 01:54 - Medications Medications: Current Medications Acetaminophen (Tylenol 325mg Tab) 650 mg PO Q6 PRN PRN Reason: Pain, Mild (1-3) Amlodipine Besylate (Norvasc) 10 mg PO DAILY [facility] Dextrose (Dextrose 50% Inj) 0 ml IV STAT PRN; Protocol PRN Reason: Hyglycemia Protocol Dextrose (Glutose 15) 0 gm PO ONCE PRN; Protocol PRN Reason: Hypoglycemia Protocol Glucagon (Glucagen Diagnostic Kit) 0 mg IM STAT PRN; Protocol PRN Reason: Hypoglycemia Protocol Heparin Sodium (Porcine) (Heparin) 5,000 units SC Q12 [facility] PRN Reason: Protocol Last Admin: 08/06/17 20:57 Dose: 5,000 units Piperacillin Sod/Tazobactam (Sod 2.25 gm/ Sodium Chloride) 100 mls @ 100 mls/ hr IVPB Q12 [facility] Last Admin: 08/06/17 20:58 Dose: 100 mls/hr Vancomycin HCl 1 gm/ Sodium (Chloride) 250 mls @ 166.667 mls/hr IVPB DAILY [facility] Last Admin: 08/06/17 11:58 Dose: 166.667 mls/hr Insulin Detemir (Levemir) 25 units SC HS [facility] Last Admin: 08/06/17 20:59 Dose: 25 u Insulin Human Regular (Humulin R) 0 units SC Q4 [facility] PRN Reason: Protocol Last Admin: 08/07/17 05:00 Dose: Not Given Insulin Lispro Protam/Lispro Human (Humalog Mix 75/25) 10 units SC BID [facility] Last Admin: 08/06/17 17:12 Dose: 10 units Metoprolol Tartrate (Lopressor) 25 mg PO Q12 [facility] Last Admin: 08/06/17 21:00 Dose: 25 mg Oxycodone/Acetaminophen (Percocet 5/325 Mg Tab) 2 tab PO Q6 PRN PRN Reason: Pain, severe (8-10) Stop: 08/09/17 17:26 Last Admin: 08/07/17 06:21 Dose: 2 tab Oxycodone/Acetaminophen (Percocet 5/325 Mg Tab) 1 tab PO Q4 PRN PRN Reason: Pain, moderate (4-7) Stop: 08/09/17 10:19 Last Admin: 08/06/17 21:08 Dose: 1 tab Pantoprazole Sodium (Protonix Ec Tab) 40 mg PO DAILY [facility] Last Admin: 08/06/17 11:57 Dose: 40 mg - Labs Labs: 08/07/17 06:00 08/07/17 06:00 - Constitutional Appears: Well, Non-toxic, No Acute Distress - Extremities Exam Additional comments: LE focused exam: Vasc: DP pulses non-palpable b/l. PT pulse only palpable 2/4 to left foot. CFT > 3 seconds to all digits b/l. Skin temperature cool to cool from proximal to distal > right side. No edema noted. Neuro: Epicritic and protective sensation grossly diminished b/l Derm: Approx. 1 cm x 1 cm wound noted to lateral aspect of patient's right fifth digit, with overlying eschar. No drainage expressed, no malodor and no periwound erythema present at this time. Dusky skin coloration noted to entirety of right fifth digit extending proximally into 5th metatarsal, most consistently resembling ischemic skin changes, skin with shiny/waxy appearance. No maceration, purulence, fluctuance noted MSK: No tenderness to palpation right 5th digit - Neurological Exam Neurological Exam: Alert, Awake, Oriented x3 - Psychiatric Exam Psychiatric exam: Normal Affect, Normal Mood Assessment and Plan - Assessment and Plan (Free Text) Assessment: 56 year old male seen at bedside for diabetic ulceration of right fifth digit and ischemia Plan: Patient seen and evaluated Discussed with attending, Dr. Mahoney Chart, vitals, labs reviewed = afebrile, WBC increased @ 12.5 (trending upwards since 08/05 @ 11.1) Right foot wound culture (final): MRSA RLE arterial duplex reviewed: normal duplex doppler of RLE arteries Awaiting MICHEL/PVR final report Right 5th digit painted with betadine soaked gauze and dressed with DSD Surgical shoe ordered CTA ordered, f/u results F/U Vascular recs C/w IV abx - Zosyn, Vancomycin No surgical intervention planned at this time Podiatry will continue to follow while in house
[2017-08-07] MEDS: Pantoprazole 40 mg EC Tab PO SCH (08:39)
[2017-08-07] MEDS: Insulin Lispro Mix 75/25 100 units/ml (HumaLog) 10ml SC SCH ×2 (08:40→17:08)
--- NOTE | 2017-08-07 09:58 | CARD ---
APPROVED REPORT EKG Measurement Heart [id number] <Conclusion> Normal sinus rhythm Possible Left atrial enlargement Left ventricular hypertrophy Abnormal ECG
[2017-08-07] MEDS ORDERED: Acetylcysteine 20% Inhal Soln (4ml) PO SCH (11:36)
[2017-08-07] MEDS: Insulin Detemir 100 Units/ml Inj SC SCH (21:50)
[2017-08-07] MEDS: Acetylcysteine 20% Inhal Soln (4ml) PO SCH (23:53)
[2017-08-08] MEDS: Insulin Regular 100 units/ml SC SCH ×6 (01:40→21:53)
--- NOTE | 2017-08-08 07:27 | CP.PCM.PN ---
Subjective - Date & Time of Evaluation Date of Evaluation: 08/08/17 Time of Evaluation: 07:25 - Subjective Subjective: Podiatry Progress Note - Dr. Mahoney 56 year old male seen at bedside for ulceration of right fifth digit. Patient seen resting comfortably, AAOx3 and NAD. Patient denies any pain to his right foot currently, states pain is well managed with pain meds. Patient states he has been ambulating out of bed and to the bathroom using his surgical shoe at all times. Patient denies N/V/F/D/C/SOB/calf pain. Offers no other pedal complaints at this time. Objective - Vital Signs/Intake and Output Vital Signs (last 24 hours): Temp Pulse Resp BP Pulse Ox 99.2 F 85 20 150/76 95 08/08/17 00:17 08/08/17 00:17 08/08/17 00:17 08/08/17 00:17 08/08/17 00:17 - Medications Medications: Current Medications Acetaminophen (Tylenol 325mg Tab) 650 mg PO Q6 PRN PRN Reason: Pain, Mild (1-3) Acetylcysteine (Acetylcysteine 20%) 3 ml PO BID@1100,2300 [facility] Stop: 08/08/17 23:01 Last Admin: 08/07/17 23:53 Dose: 3 ml Amlodipine Besylate (Norvasc) 10 mg PO DAILY [facility] Last Admin: 08/07/17 08:38 Dose: 10 mg Dextrose (Dextrose 50% Inj) 0 ml IV STAT PRN; Protocol PRN Reason: Hyglycemia Protocol Dextrose (Glutose 15) 0 gm PO ONCE PRN; Protocol PRN Reason: Hypoglycemia Protocol Glucagon (Glucagen Diagnostic Kit) 0 mg IM STAT PRN; Protocol PRN Reason: Hypoglycemia Protocol Heparin Sodium (Porcine) (Heparin) 5,000 units SC Q12 [facility] PRN Reason: Protocol Last Admin: 08/07/17 21:48 Dose: 5,000 units Piperacillin Sod/Tazobactam (Sod 2.25 gm/ Sodium Chloride) 100 mls @ 100 mls/ hr IVPB Q12 [facility] Last Admin: 08/07/17 21:47 Dose: 100 mls/hr Vancomycin HCl 1 gm/ Sodium (Chloride) 250 mls @ 166.667 mls/hr IVPB DAILY [facility] Last Admin: 08/07/17 11:00 Dose: 166.667 mls/hr Insulin Detemir (Levemir) 25 units SC HS [facility] Last Admin: 08/07/17 21:50 Dose: 25 u Insulin Human Regular (Humulin R) 0 units SC Q4 [facility] PRN Reason: Protocol Last Admin: 08/08/17 05:15 Dose: Not Given Insulin Lispro Protam/Lispro Human (Humalog Mix 75/25) 10 units SC BID [facility] Last Admin: 08/07/17 17:08 Dose: 10 units Metoprolol Tartrate (Lopressor) 25 mg PO Q12 [facility] Last Admin: 08/07/17 21:56 Dose: 25 mg Oxycodone/Acetaminophen (Percocet 5/325 Mg Tab) 2 tab PO Q6 PRN PRN Reason: Pain, severe (8-10) Stop: 08/09/17 17:26 Last Admin: 08/07/17 21:46 Dose: 2 tab Oxycodone/Acetaminophen (Percocet 5/325 Mg Tab) 1 tab PO Q4 PRN PRN Reason: Pain, moderate (4-7) Stop: 08/09/17 10:19 Last Admin: 08/06/17 21:08 Dose: 1 tab Pantoprazole Sodium (Protonix Ec Tab) 40 mg PO DAILY [facility] Last Admin: 08/07/17 08:39 Dose: 40 mg - Labs Labs: 08/07/17 06:00 08/07/17 06:00 - Constitutional Appears: Well, Non-toxic, No Acute Distress - Extremities Exam Additional comments: LE focused exam: Vasc: DP pulses non-palpable b/l. PT pulse only palpable 2/4 to left foot. CFT > 3 seconds to all digits b/l. Skin temperature cool to cool from proximal to distal > right side. No edema noted. Neuro: Epicritic and protective sensation grossly diminished b/l Derm: Approx. 1 cm x 1 cm wound noted to lateral aspect of patient's right fifth digit, with overlying eschar. No drainage expressed, no malodor and no periwound erythema present at this time. Dusky skin coloration noted to entirety of right fifth digit extending proximally into 5th metatarsal, most consistently resembling ischemic skin changes, skin with shiny/waxy appearance. Necrotic changes on the lateral aspect of 5th digit extending to the base of the digit. No maceration, purulence, fluctuance noted MSK: No tenderness to palpation right 5th digit - Neurological Exam Neurological Exam: Alert, Awake, Oriented x3 Assessment and Plan - Assessment and Plan (Free Text) Assessment: 56 year old male seen at bedside for diabetic ulceration of right fifth digit and ischemia Plan: Patient seen and evaluated Discussed with attending, Dr. Mahoney Chart, vitals, labs reviewed = afebrile Right foot wound culture (final): MRSA RLE arterial duplex reviewed: normal duplex doppler of RLE arteries Awaiting MICHEL/PVR final report Right 5th digit painted with betadine soaked gauze and dressed with DSD C/w local wound care WBAT in surgical shoe to right foot CTA: R runoff shows moderate calcific plaque in anterior tibial a. and posterior tibial a. All 3 tibial vessels are patent F/U Vascular recs C/w IV abx - Zosyn, Vancomycin Podiatry will continue to follow while in house
[2017-08-08] MEDS: Insulin Lispro Mix 75/25 100 units/ml (HumaLog) 10ml SC SCH ×2 (08:52→16:44)
[2017-08-08] MEDS: Pantoprazole 40 mg EC Tab PO SCH (08:55)
[2017-08-08] MEDS: Oxycodone/Acetaminophen 5/325 mg Tab PO PRN ×2 (09:21→20:32)
--- NOTE | 2017-08-08 11:39 | CP.PCM.PN ---
Subjective - Date & Time of Evaluation Date of Evaluation: 08/08/17 Time of Evaluation: 11:35 - Subjective Subjective: discussed with Dr Mahoney yesterday. Due to apaprent progression of ischemic zoneof foot, ordered CT angiogram to assess vasculature. can givne mucomyst 600 mg BID for renal protection. await CT angiogram results. Objective - Vital Signs/Intake and Output Vital Signs (last 24 hours): Temp Pulse Resp BP Pulse Ox 98.7 F 86 18 149/80 98 08/08/17 07:37 08/08/17 07:37 08/08/17 07:37 08/08/17 07:37 08/08/17 07:37 - Medications Medications: Current Medications Acetaminophen (Tylenol 325mg Tab) 650 mg PO Q6 PRN PRN Reason: Pain, Mild (1-3) Acetylcysteine (Acetylcysteine 20%) 3 ml PO BID@1100,2300 [facility] Stop: 08/08/17 23:01 Last Admin: 08/07/17 23:53 Dose: 3 ml Amlodipine Besylate (Norvasc) 10 mg PO DAILY [facility] Last Admin: 08/08/17 08:54 Dose: 10 mg Dextrose (Dextrose 50% Inj) 0 ml IV STAT PRN; Protocol PRN Reason: Hyglycemia Protocol Dextrose (Glutose 15) 0 gm PO ONCE PRN; Protocol PRN Reason: Hypoglycemia Protocol Glucagon (Glucagen Diagnostic Kit) 0 mg IM STAT PRN; Protocol PRN Reason: Hypoglycemia Protocol Heparin Sodium (Porcine) (Heparin) 5,000 units SC Q12 [facility] PRN Reason: Protocol Last Admin: 08/08/17 08:51 Dose: 5,000 units Piperacillin Sod/Tazobactam (Sod 2.25 gm/ Sodium Chloride) 100 mls @ 100 mls/ hr IVPB Q12 [facility] Last Admin: 08/08/17 08:56 Dose: 100 mls/hr Vancomycin HCl 1 gm/ Sodium (Chloride) 250 mls @ 166.667 mls/hr IVPB DAILY [facility] Last Admin: 08/08/17 08:55 Dose: 166.667 mls/hr Insulin Detemir (Levemir) 25 units SC HS [facility] Last Admin: 08/07/17 21:50 Dose: 25 u Insulin Human Regular (Humulin R) 0 units SC Q4 [facility] PRN Reason: Protocol Last Admin: 08/08/17 08:53 Dose: Not Given Insulin Lispro Protam/Lispro Human (Humalog Mix 75/25) 10 units SC BID [facility] Last Admin: 08/08/17 08:52 Dose: 10 units Metoprolol Tartrate (Lopressor) 25 mg PO Q12 [facility] Last Admin: 08/08/17 08:54 Dose: 25 mg Oxycodone/Acetaminophen (Percocet 5/325 Mg Tab) 2 tab PO Q6 PRN PRN Reason: Pain, severe (8-10) Stop: 08/09/17 17:26 Last Admin: 08/07/17 21:46 Dose: 2 tab Oxycodone/Acetaminophen (Percocet 5/325 Mg Tab) 1 tab PO Q4 PRN PRN Reason: Pain, moderate (4-7) Stop: 08/09/17 10:19 Last Admin: 08/08/17 09:21 Dose: 1 tab Pantoprazole Sodium (Protonix Ec Tab) 40 mg PO DAILY [facility] Last Admin: 08/08/17 08:55 Dose: 40 mg - Labs Labs: 08/07/17 06:00 08/07/17 06:00 Assessment and Plan (1) Diabetic ulcer of toe Status: Acute (2) Hyperlipidemia Status: Chronic (3) Hypertension Status: Chronic
[2017-08-08] MEDS: Acetylcysteine 20% Inhal Soln (4ml) PO SCH ×2 (12:27→23:17)
[2017-08-08] MEDS: Sodium Chloride 0.45% 1,000 ML IV SCH ×2 (13:04→21:59)
[2017-08-08] MEDS ORDERED: Iodixanol 320 MG/ML 100 ML BOTTLE IV ONE (13:11)
[2017-08-08] MEDS ORDERED: Sodium Chloride 0.9% 50 ML IV ONE (13:12)
--- NOTE | 2017-08-08 15:11 | CT ---
PROCEDURE: CT Angiography Abdomen, Pelvis and Lower Extremity with Contrast HISTORY: PVD COMPARISON: None. TECHNIQUE: Technique: CT angiography of the abdomen, pelvis and bilateral lower extremities performed in the arterial phase of enhancement. Coronal and sagittal reformats, and well as rotating MIP images of the vessels generated at the workstation. Intravenous contrast dose: 99 cubic centimeters Visipaque 320 Radiation dose: Total exam DLP = 1056.83 MGy-cm. This CT exam was performed using one or more of the following dose reduction techniques: Automated exposure control, adjustment of the mA and/or kV according to patient size, and/or use of iterative reconstruction technique. FINDINGS: CT ANGIOGRAPHY: ABDOMINAL AORTA:: Unremarkable MAJOR AORTIC BRANCHES: Celiac [place]: Unremarkable. Superior mesenteric artery: Unremarkable. Inferior mesenteric artery: Unremarkable. Renal arteries: Unremarkable. PELVIC ARTERIES: Right Common Iliac: Unremarkable. Right External Iliac: Unremarkable. Right Internal Iliac: Unremarkable. Left Common Iliac: Unremarkable. Left External Iliac: Unremarkable. Left Internal Iliac: Unremarkable. RIGHT LOWER EXTREMITY ARTERIES: Right Common Femoral: Unremarkable. Right Superficial Femoral: Moderate calcific plaque throughout the SFA without significant stenosis. Right Profunda Femoris: Unremarkable. Right Popliteal:Moderate calcific plaque without significant stenosis. Right Anterior Tibial: Moderate calcific plaque but patent. Right Tibioperoneal Trunk: Unremarkable. Right Posterior Tibial: Moderate calcific plaque and otherwise patent. Right Peroneal: Unremarkable. Right dorsalis pedis : Unremarkable. LEFT LOWER EXTREMITY ARTERIES: Left Common Femoral: Unremarkable. Left Superficial Femoral: Moderate calcific plaque with mild stenosis in distal segment. Left Profunda Femoris: Unremarkable. Left Popliteal: Under calcific plaque with no stenosis per Left Anterior Tibial: Mild calcific plaque and patent. Left Tibioperoneal Trunk: Unremarkable. Left Posterior Tibial: Mild calcific plaque and patent. Left Peroneal: Unremarkable. Left Dorsalis pedis: Unremarkable. NON-ANGIOGRAPHIC ASPECT OF THE EXAM: LOWER THORAX: Unremarkable. LIVER: Unremarkable. No gross lesion or ductal dilatation. GALLBLADDER AND BILE DUCTS: Unremarkable. PANCREAS: Unremarkable. No gross lesion or ductal dilatation. SPLEEN: Unremarkable. ADRENALS: Unremarkable. No mass. KIDNEYS AND URETERS: Unremarkable. No hydronephrosis. No solid mass. STOMACH AND BOWEL: Unremarkable. No obstruction. No gross mural thickening. APPENDIX: Normal appendix. PERITONEUM: Unremarkable. No free fluid. No free air. LYMPH NODES: Unremarkable. No enlarged lymph nodes. BLADDER: Unremarkable. REPRODUCTIVE: Unremarkable. BONES: No acute fracture. OTHER FINDINGS: None. IMPRESSION: CT ANGIOGRAM ABDOMEN AND PELVIS: Unremarkable CT angiogram of the abdomen pelvis. LEFT LOWER EXTREMITY CT ANGIOGRAM: 1. Common femoral artery and profunda femoral artery are unremarkable. 2. There is moderate calcific plaque throughout the SFA with mild stenosis in distal segment. Popliteal artery is mildly calcified and patent. 3. Runoff shows patent 3 vessels. The posterior tibial artery and anterior tibial artery have mild calcific plaque but no stenosis. RIGHT LOWER EXTREMITY CT ANGIOGRAM: 1. Common femoral artery and profunda femoral artery are unremarkable. 2. The superficial femoral artery is moderate calcific plaque and otherwise unremarkable. The popliteal artery likewise has moderate calcific plaque and is otherwise patent. 3. Right runoff shows moderate calcific plaque in the anterior tibial artery and posterior tibial artery. All 3 tibial vessels are patent.
[2017-08-08] MEDS: Linezolid 600 mg in D5W 300 ml 600 MG/300 ML BAG IVPB SCH ×2 (15:38→22:00)
[2017-08-08] MEDS: Insulin Detemir 100 Units/ml Inj SC SCH (21:54)
[2017-08-09] MEDS: Insulin Regular 100 units/ml SC SCH ×6 (01:30→21:59)
[2017-08-09] MEDS: Oxycodone/Acetaminophen 5/325 mg Tab PO PRN ×3 (01:31→21:58)
[2017-08-09] MEDS: Linezolid 600 mg in D5W 300 ml 600 MG/300 ML BAG IVPB SCH ×2 (03:18→15:15)
--- NOTE | 2017-08-09 05:47 | CP.PCM.PN ---
Subjective - Date & Time of Evaluation Date of Evaluation: 08/09/17 Time of Evaluation: 05:47 - Subjective Subjective: Podiatry Progress Note - Dr. Mahoney 56 year old male seen at bedside for ulceration of right fifth digit. Patient seen resting comfortably, AAOx3 and NAD. Patient reports slight pain to right 5th digit today. Patient ambulating OOB to bathroom without issues. Pt is aware that he will be going to the OR this afternoon for surgery. Pt confirms he has had nothing to eat or drink since breakfast this morning. Patient denies N/V/F/D /C/SOB/calf pain. Offers no other pedal complaints at this time. Objective - Vital Signs/Intake and Output Vital Signs (last 24 hours): Temp Pulse Resp BP Pulse Ox 98.2 F 80 19 153/84 H 97 08/09/17 00:00 08/09/17 00:00 08/09/17 00:00 08/09/17 00:00 08/09/17 00:00 - Medications Medications: Current Medications Acetaminophen (Tylenol 325mg Tab) 650 mg PO Q6 PRN PRN Reason: Pain, Mild (1-3) Amlodipine Besylate (Norvasc) 10 mg PO DAILY [facility] Last Admin: 08/08/17 08:54 Dose: 10 mg Dextrose (Dextrose 50% Inj) 0 ml IV STAT PRN; Protocol PRN Reason: Hyglycemia Protocol Dextrose (Glutose 15) 0 gm PO ONCE PRN; Protocol PRN Reason: Hypoglycemia Protocol Glucagon (Glucagen Diagnostic Kit) 0 mg IM STAT PRN; Protocol PRN Reason: Hypoglycemia Protocol Heparin Sodium (Porcine) (Heparin) 5,000 units SC Q12 [facility] PRN Reason: Protocol Last Admin: 08/08/17 20:36 Dose: 5,000 units Sodium Chloride (Sodium Chloride 0.45%) 1,000 mls @ 100 mls/hr IV .Q10H [facility] Stop: 08/09/17 12:29 Last Admin: 08/08/17 21:59 Dose: 100 mls/hr Linezolid (Zyvox 600mg/300ml D5w) 600 mg in 300 mls @ 300 mls/hr IVPB Q12@0300, 1500 [facility] Last Admin: 08/09/17 03:18 Dose: 300 mls/hr Insulin Detemir (Levemir) 25 units SC HS [facility] Last Admin: 08/08/17 21:54 Dose: 25 u Insulin Human Regular (Humulin R) 0 units SC Q4 [facility] PRN Reason: Protocol Last Admin: 08/09/17 01:30 Dose: Not Given Insulin Lispro Protam/Lispro Human (Humalog Mix 75/25) 10 units SC BID [facility] Last Admin: 08/08/17 16:44 Dose: 10 units Metoprolol Tartrate (Lopressor) 25 mg PO Q12 [facility] Last Admin: 08/08/17 20:37 Dose: 25 mg Oxycodone/Acetaminophen (Percocet 5/325 Mg Tab) 2 tab PO Q6 PRN PRN Reason: Pain, severe (8-10) Stop: 08/09/17 17:26 Last Admin: 08/08/17 20:32 Dose: 2 tab Oxycodone/Acetaminophen (Percocet 5/325 Mg Tab) 1 tab PO Q4 PRN PRN Reason: Pain, moderate (4-7) Stop: 08/09/17 10:19 Last Admin: 08/09/17 01:31 Dose: 1 tab Pantoprazole Sodium (Protonix Ec Tab) 40 mg PO DAILY [facility] Last Admin: 08/08/17 08:55 Dose: 40 mg - Labs Labs: 08/07/17 06:00 08/07/17 06:00 - Constitutional Appears: Well, Non-toxic, No Acute Distress - Extremities Exam Additional comments: LE focused exam: Vasc: DP pulses non-palpable b/l. PT pulse only palpable 2/4 to left foot. CFT > 3 seconds to all digits b/l. Skin temperature cool to cool from proximal to distal > right side. No edema noted. Neuro: Epicritic and protective sensation grossly diminished b/l Derm: Approx. 1 cm x 1 cm wound noted to lateral aspect of patient's right fifth digit, with overlying eschar. No drainage expressed, no malodor and no periwound erythema present at this time. Dusky skin coloration noted to entirety of right fifth digit extending proximally into 5th metatarsal, most consistently resembling ischemic skin changes, skin with shiny/waxy appearance. Necrotic changes on the lateral aspect of 5th digit extending to the base of the digit, spreading circumfirentially at this visit. No maceration, purulence, fluctuance noted MSK: Mild tenderness to palpation right 5th digit - Neurological Exam Neurological Exam: Alert, Awake, Oriented x3 - Psychiatric Exam Psychiatric exam: Normal Affect, Normal Mood Assessment and Plan - Assessment and Plan (Free Text) Assessment: 56 year old male seen at bedside for diabetic ulceration of right fifth digit and ischemia Plan: Patient seen and evaluated Discussed with attending, Dr. Mahoney Chart, vitals, labs reviewed = afebrile Right foot wound culture (final): MRSA RLE arterial duplex reviewed: normal duplex doppler of RLE arteries Right 5th digit painted with betadine soaked gauze and dressed with DSD C/w abx - Linezolid CTA: R runoff shows moderate calcific plaque in anterior tibial a. and posterior tibial a. All 3 tibial vessels are patent Pt to go to OR today at 4:30 pm for partial 5th ray amputation Discussed with Dr. Galicia and pt is cleared for surgery from cardiac standpoint Pt NPO status was confirmed All Pre-op testing and clearance is in the chart Pt has exhausted all conservative treatment at this time and is opting for surgical intervention Pt was explained procedure and post-operative course All pt's questions were answered to satisfaction No guarantees were made Pt understands all risks, benefits and complications of procedure Podiatry will continue to follow post-op
[2017-08-09 06:31] LABS: HEMATOCRIT 33.3 % (35.0-51.0); MEAN CELL VOLUME 88.8 fl (80.0-94.0); MEAN CORPUSCULAR HEMOGLOBIN 30.6 pg (27.0-31.0); MEAN CORPUSCULAR HGB CONC 34.5 g/dL (33.0-37.0); WHITE BLOOD COUNT 10.1 K/uL (4.8-10.8)
[2017-08-09 06:38] LABS: BILIRUBIN,TOTAL 0.2 mg/dl (0.2-1.3); CALCIUM 8.5 mg/dL (8.4-10.2); POTASSIUM 3.7 MMOL/L (3.6-5.0); TOTAL PROTEIN 6.5 G/DL (6.3-8.2)
[2017-08-09 07:03] LABS: ALB/GLOB RATIO 0.9 (1.0-2.1)
[2017-08-09] MEDS: Insulin Lispro Mix 75/25 100 units/ml (HumaLog) 10ml SC SCH ×2 (09:05→16:06)
[2017-08-09] MEDS: Pantoprazole 40 mg EC Tab PO SCH (09:08)
[2017-08-09] MEDS: Sodium Chloride 0.45% 1,000 ML IV SCH (09:28)
--- NOTE | 2017-08-09 15:03 | CP.PCM.PCO ---
Progress Note - Review of Symptoms Events since last encounter: Patient's Labs, x ray, EKG, and coags have been reviewed. Patient denies any chest pain, SOB, dizziness. Pt received heparin today: Continue w/ surg podiatry recommendation Gen: NCAT CVS: S1s2 no M/R/G Resp: CTAB no w/ r/r RETAIL LEADER: WNL Patient is low risk for amputation surgery. Medically stable.
[2017-08-09] MEDS ORDERED: Lidocaine 1% Inj (20ml) ONE (15:14)
[2017-08-09] MEDS ORDERED: Bupivacaine 0.5% Inj(30mL) ONE (15:14)
[2017-08-09] MEDS ORDERED: Bupivacaine 0.5% Inj(30mL) IJ ONE (16:20)
[2017-08-09] MEDS ORDERED: Lidocaine 1% Inj (20ml) IJ ONE ×2 (16:20→17:00)
[2017-08-09] MEDS ORDERED: Propofol 10 mg/ml Inj (20 ML) ONE ×2 (16:34→17:16)
[2017-08-09] MEDS ORDERED: Midazolam 2 MG/2 ML VIAL ONE (16:35)
[2017-08-09] MEDS ORDERED: Sodium Chloride 0.9% 1,000 ML IV ONE (16:50)
[2017-08-09] MEDS ORDERED: Bupivacaine 0.5% 50 ML IJ ONE (17:00)
[2017-08-09] MEDS ORDERED: ceFAZolin 2 GM in Sodium Chloride 0.9% 100 ML IVPB ONE (17:00)
[2017-08-09] MEDS ORDERED: Sodium Chloride 0.9% 1,000 ML IV PRN (17:20)
[2017-08-09] MEDS ORDERED: HYDROmorphone 0.5 mg/0.5 ml ISec IVP PRN (17:21)
--- NOTE | 2017-08-09 17:57 | PCM.SURG1 ---
Surgeon's Initial Post Op Note - Surgeon's Notes Surgeon: Dr. Mahoney DPM Medical Aide: INGRID GarciaM PGY-1 Anesthesia Administered By: Dr. Canela Pre-Operative Diagnosis: right foot 5th digit infected ulcer Operative Findings: see dictation. materials: 3-0 nylon, packing 1/4 iodoform; injectable none Post-Operative Diagnosis: same Operation Performed: partial 5th ray amputation of right foot Specimen/Specimens Removed: R gangrene 5th toe; wound culture = x2 R foot wound Estimated Blood Loss: EBL {In ML}: 10 Blood Products Given: N/A Drains Used: No Drains Post-Op Condition: Good Date of Surgery/Procedure: 08/09/17 Time of Surgery/Procedure: 17:00
[2017-08-09] MEDS ORDERED: Oxycodone/Acetaminophen 5/325 mg Tab PO PRN (18:01)
[2017-08-09] MEDS: Insulin Detemir 100 Units/ml Inj SC SCH (21:54)
[2017-08-09] MEDS: Sodium Chloride 0.9% 1,000 ML IV SCH (22:06)
[2017-08-10] MEDS: Insulin Regular 100 units/ml SC SCH ×6 (01:19→20:47)
[2017-08-10] MEDS: Sodium Chloride 0.9% 1,000 ML IV SCH ×3 (01:22→21:50)
[2017-08-10] MEDS: Linezolid 600 mg in D5W 300 ml 600 MG/300 ML BAG IVPB SCH ×2 (03:24→14:53)
[2017-08-10] MEDS: Oxycodone/Acetaminophen 5/325 mg Tab PO PRN ×2 (06:24→17:44)
[2017-08-10] MEDS: Insulin Lispro Mix 75/25 100 units/ml (HumaLog) 10ml SC SCH ×2 (08:55→17:46)
[2017-08-10] MEDS: Pantoprazole 40 mg EC Tab PO SCH (08:57)
--- NOTE | 2017-08-10 13:14 | RAD ---
Indication: Status post right foot surgery Two views, right foot Comparison: Right foot radiographs performed 08/02/17 Findings: Status post amputation at the level of the distal 5th metatarsal. Subcutaneous emphysema and associated soft tissue swelling. Remainder the visualized osseous structures appear intact. Vascular calcifications. No evidence of retained radiopaque foreign body. Impression: Status post amputation at the level of the distal 5th metatarsal. Subcutaneous emphysema and associated soft tissue swelling.
--- NOTE | 2017-08-10 14:57 | CP.PCM.PN ---
Subjective - Date & Time of Evaluation Date of Evaluation: 08/10/17 Time of Evaluation: 14:55 - Subjective Subjective: Podiatry progress note for Dr. Mahoney 56 y/o male seen and evaluated at bedside 1 day s/p partial 5th ray amputation of the right foot. Patient is AAOx3 and is in NAD. Patient states that he had a lot of pain overnight but now he is managing his pain well with the medications. Patient denies of any other pedal complains at this time. Patient denies of any other pedal complains at this time. Patient also denies of any F/N /V/C/SOB/CP. Objective - Vital Signs/Intake and Output Vital Signs (last 24 hours): Temp Pulse Resp BP Pulse Ox 99.8 F H 91 H 20 145/90 97 08/10/17 13:00 08/10/17 13:00 08/10/17 13:00 08/10/17 13:00 08/10/17 13:00 - Medications Medications: Current Medications Acetaminophen (Tylenol 325mg Tab) 650 mg PO Q6 PRN PRN Reason: Pain, Mild (1-3) Acetaminophen (Tylenol 325mg Tab) 650 mg PO Q4 PRN PRN Reason: Pain, Mild (1-3) Amlodipine Besylate (Norvasc) 10 mg PO DAILY [facility] Last Admin: 08/10/17 08:56 Dose: 10 mg Dextrose (Dextrose 50% Inj) 0 ml IV STAT PRN; Protocol PRN Reason: Hyglycemia Protocol Dextrose (Glutose 15) 0 gm PO ONCE PRN; Protocol PRN Reason: Hypoglycemia Protocol Glucagon (Glucagen Diagnostic Kit) 0 mg IM STAT PRN; Protocol PRN Reason: Hypoglycemia Protocol Heparin Sodium (Porcine) (Heparin) 5,000 units SC Q12 [facility] PRN Reason: Protocol Last Admin: 08/10/17 08:55 Dose: 5,000 units Linezolid (Zyvox 600mg/300ml D5w) 600 mg in 300 mls @ 300 mls/hr IVPB Q12@0300, 1500 [facility] Last Admin: 08/10/17 14:53 Dose: 300 mls/hr Sodium Chloride (Sodium Chloride 0.9%) 1,000 mls @ 120 mls/hr IV .Q8H20M [facility] Stop: 08/10/17 16:20 Last Admin: 08/10/17 12:08 Dose: Not Given Sodium Chloride (Sodium Chloride 0.9%) 1,000 mls @ 12.21 mls/hr IV .Q24H PRN PRN Reason: Hypotension Insulin Detemir (Levemir) 25 units SC HS [facility] Last Admin: 08/09/17 21:54 Dose: 25 u Insulin Human Regular (Humulin R) 0 units SC Q4 [facility] PRN Reason: Protocol Last Admin: 08/10/17 12:47 Dose: 1 units Insulin Lispro Protam/Lispro Human (Humalog Mix 75/25) 10 units SC BID [facility] Last Admin: 08/10/17 08:55 Dose: 10 units Metoprolol Tartrate (Lopressor) 25 mg PO Q12 [facility] Last Admin: 08/10/17 08:56 Dose: 25 mg Morphine Sulfate (Morphine) 2 mg IVP Q6 PRN PRN Reason: Pain, severe (8-10) Last Admin: 08/10/17 12:52 Dose: 2 mg Oxycodone/Acetaminophen (Percocet 5/325 Mg Tab) 1 tab PO Q4 PRN PRN Reason: Pain, moderate (4-7) Stop: 08/12/17 18:02 Oxycodone/Acetaminophen (Percocet 5/325 Mg Tab) 2 tab PO Q4 PRN PRN Reason: Pain, severe (8-10) Stop: 08/12/17 18:02 Last Admin: 08/10/17 06:24 Dose: 2 tab Pantoprazole Sodium (Protonix Ec Tab) 40 mg PO DAILY [facility] Last Admin: 08/10/17 08:57 Dose: 40 mg - Labs Labs: 08/09/17 05:55 08/09/17 05:55 PT 12.8 Seconds (9.8-13.1) 08/09/17 13:30 INR 1.1 (0.9-1.2) 08/09/17 13:30 - Constitutional Appears: Well, Non-toxic, No Acute Distress - Extremities Exam Additional comments: Patient's dressing is clean, dry and intact. no active drainage or strike through is noted from the dressing. ASSEMBLER FINGER BUFFS: < 3 sec at the digits. - Neurological Exam Neurological Exam: Alert, Awake, Oriented x3 - Psychiatric Exam Psychiatric exam: Normal Affect, Normal Mood Assessment and Plan - Assessment and Plan (Free Text) Assessment: 56 y/o male seen and evaluated at bedside 1 day s/p partial 5th ray resection of the right foot Plan: Patient evaluated and charts reviewed Patient discussed in details with attending Dr. Mahoney Labs and vitals reviewed (afebrile, WBC @ 10.1 from yesterday) Dressing remains intact with no active drainage or strike through Will change dressing tomorrow C/w IV abx as per ID - Zyvox Intra-op cultures pending Podiatry to follow patient while patient is in-house
--- NOTE | 2017-08-10 15:50 | PN ---
DATE: 08/10/2017 SUBJECTIVE: The patient is seen and examined. Interim events noted. The patient is seen for Dr. Murray while he is away. The patient is status post amputation and complains of pain, not adequately controlled. No current medication. No chest pain or shortness of breath. PHYSICAL EXAMINATION GENERAL: The patient is in no acute distress. VITAL SIGNS: Stable. HEART: S1 and S2, normal and regular. LUNGS: Good bilateral air exchange. ABDOMEN: Soft and [id number]. EXTREMITIES: The patient is status post amputation. No edema. No calf swelling. No tenderness. No acute ischemia. CENTRAL NERVOUS SYSTEM: Essentially unchanged. DIAGNOSTIC DATA: Available diagnostic data reviewed. Accu-Cheks are 287, 247, 326, and 241. ASSESSMENT: Surgical followup and procedures noted and appreciated. Overall, the patient is clinically stable. No sign of acute postop complication. PLAN: As ordered. Konstantin Nuñez MD
[2017-08-10] MEDS: Insulin Detemir 100 Units/ml Inj SC SCH (21:51)
[2017-08-11] MEDS: Insulin Regular 100 units/ml SC SCH ×6 (00:58→20:45)
[2017-08-11] MEDS: Oxycodone/Acetaminophen 5/325 mg Tab PO PRN ×4 (02:19→20:23)
[2017-08-11] MEDS: Linezolid 600 mg in D5W 300 ml 600 MG/300 ML BAG IVPB SCH ×2 (02:22→14:02)
[2017-08-11 07:07] LABS: HEMATOCRIT 34.9 % (35.0-51.0); MEAN CELL VOLUME 89.9 fl (80.0-94.0); MEAN CORPUSCULAR HEMOGLOBIN 29.8 pg (27.0-31.0); MEAN CORPUSCULAR HGB CONC 33.1 g/dL (33.0-37.0); RED CELL DISTRIBUTION WIDTH 12.4 % (11.5-14.5); WHITE BLOOD COUNT 12.5 K/uL (4.8-10.8)
[2017-08-11 07:21] LABS: ALB/GLOB RATIO 0.8 (1.0-2.1); BILIRUBIN,TOTAL 0.2 mg/dl (0.2-1.3); CALCIUM 8.6 mg/dL (8.4-10.2); POTASSIUM 4.4 MMOL/L (3.6-5.0); TOTAL PROTEIN 6.8 G/DL (6.3-8.2)
[2017-08-11] MEDS: Insulin Lispro Mix 75/25 100 units/ml (HumaLog) 10ml SC SCH ×2 (09:58→17:28)
[2017-08-11] MEDS: Pantoprazole 40 mg EC Tab PO SCH (09:59)
--- NOTE | 2017-08-11 12:50 | CP.PCM.PN ---
Subjective - Date & Time of Evaluation Date of Evaluation: 08/11/17 Time of Evaluation: 12:44 - Subjective Subjective: Podiatry progress note for Dr. Mahoney 56 y/o male seen and evaluated at bedside 2 day s/p partial 5th ray amputation of the right foot. Patient denies of any acute overnight events. Patient is AAOx3 and is in NAD. Patient states that he has little pain but now he is managing his pain well with the medications. Patient denies of any other pedal complains at this time. Patient also denies of any F/N/V/C/SOB/CP. Objective - Vital Signs/Intake and Output Vital Signs (last 24 hours): Temp Pulse Resp BP Pulse Ox 98.5 F 86 20 143/72 95 08/11/17 08:16 08/11/17 09:59 08/11/17 08:16 08/11/17 09:59 08/11/17 08:16 - Medications Medications: Current Medications Acetaminophen (Tylenol 325mg Tab) 650 mg PO Q6 PRN PRN Reason: Pain, Mild (1-3) Acetaminophen (Tylenol 325mg Tab) 650 mg PO Q4 PRN PRN Reason: Pain, Mild (1-3) Amlodipine Besylate (Norvasc) 10 mg PO DAILY [facility] Last Admin: 08/11/17 09:59 Dose: 10 mg Dextrose (Dextrose 50% Inj) 0 ml IV STAT PRN; Protocol PRN Reason: Hyglycemia Protocol Dextrose (Glutose 15) 0 gm PO ONCE PRN; Protocol PRN Reason: Hypoglycemia Protocol Glucagon (Glucagen Diagnostic Kit) 0 mg IM STAT PRN; Protocol PRN Reason: Hypoglycemia Protocol Heparin Sodium (Porcine) (Heparin) 5,000 units SC Q12 [facility] PRN Reason: Protocol Last Admin: 08/11/17 09:58 Dose: 5,000 units Linezolid (Zyvox 600mg/300ml D5w) 600 mg in 300 mls @ 300 mls/hr IVPB Q12@0300, 1500 [facility] Last Admin: 08/11/17 02:22 Dose: 300 mls/hr Sodium Chloride (Sodium Chloride 0.9%) 1,000 mls @ 12.21 mls/hr IV .Q24H PRN PRN Reason: Hypotension Insulin Detemir (Levemir) 25 units SC HS [facility] Last Admin: 08/10/17 21:51 Dose: 25 u Insulin Human Regular (Humulin R) 0 units SC Q4 [facility] PRN Reason: Protocol Last Admin: 08/11/17 09:58 Dose: 1 units Insulin Lispro Protam/Lispro Human (Humalog Mix 75/25) 10 units SC BID [facility] Last Admin: 08/11/17 09:58 Dose: 10 units Metoprolol Tartrate (Lopressor) 25 mg PO Q12 [facility] Last Admin: 08/11/17 09:59 Dose: 25 mg Morphine Sulfate (Morphine) 2 mg IVP Q6 PRN PRN Reason: Pain, severe (8-10) Last Admin: 08/10/17 12:52 Dose: 2 mg Oxycodone/Acetaminophen (Percocet 5/325 Mg Tab) 1 tab PO Q4 PRN PRN Reason: Pain, moderate (4-7) Stop: 08/12/17 18:02 Oxycodone/Acetaminophen (Percocet 5/325 Mg Tab) 2 tab PO Q4 PRN PRN Reason: Pain, severe (8-10) Stop: 08/12/17 18:02 Last Admin: 08/11/17 10:06 Dose: 2 tab Pantoprazole Sodium (Protonix Ec Tab) 40 mg PO DAILY [facility] Last Admin: 08/11/17 09:59 Dose: 40 mg - Labs Labs: 08/11/17 05:30 08/11/17 05:30 PT 12.8 Seconds (9.8-13.1) 08/09/17 13:30 INR 1.1 (0.9-1.2) 08/09/17 13:30 - Constitutional Appears: Well, Non-toxic, No Acute Distress - Extremities Exam Additional comments: VASC: DP pulses non-palpable b/l. PT pulse only palpable 2/4 to left foot. CFT > 3 seconds to all digits b/l. Skin temperature warm to warm from proximal to distal > right side. No edema noted. DERM: Surgical sutures are intact with no dehicense noted, small opening on the proximal and distal aspect seen with the iodoform packing coming out, very minimal sanguineous drainage noted on the proximal opening, no malodor, no erythema, no clinical suspicion of active infection NEURO: Epicritic and protective sensation grossly diminished b/l ORTHO: mild tenderness on palpation of the surgical site - Neurological Exam Neurological Exam: Alert, Awake, Oriented x3 - Psychiatric Exam Psychiatric exam: Normal Affect, Normal Mood Assessment and Plan - Assessment and Plan (Free Text) Assessment: 56 y/o male seen and evaluated at bedside 2 day s/p partial 5th ray resection of the right foot Plan: Patient evaluated and charts reviewed Patient discussed in details with attending Dr. Mahoney Labs and vitals reviewed (afebrile, WBC @ 12.5) Iodoform packing removed, dressing applied using xeroform, betadine DSD, and light SHERI C/w IV abx as per ID - Zyvox Intra-op cultures (Prelim): G+ cocci Podiatry to follow patient while patient is in-house
--- NOTE | 2017-08-11 14:45 | CP.PCM.PN ---
Subjective - Date & Time of Evaluation Date of Evaluation: 08/11/17 Time of Evaluation: 14:48 - Subjective Subjective: I D NOTE 2 DAYS POST OP AMPUTATION 5TH DIGIT WBC :12.5 WOULD CONTINUE ZYVOX Objective - Vital Signs/Intake and Output Vital Signs (last 24 hours): Temp Pulse Resp BP Pulse Ox 98.5 F 86 20 143/72 95 08/11/17 08:16 08/11/17 09:59 08/11/17 08:16 08/11/17 09:59 08/11/17 08:16 - Medications Medications: Current Medications Acetaminophen (Tylenol 325mg Tab) 650 mg PO Q6 PRN PRN Reason: Pain, Mild (1-3) Acetaminophen (Tylenol 325mg Tab) 650 mg PO Q4 PRN PRN Reason: Pain, Mild (1-3) Amlodipine Besylate (Norvasc) 10 mg PO DAILY [facility] Last Admin: 08/11/17 09:59 Dose: 10 mg Dextrose (Dextrose 50% Inj) 0 ml IV STAT PRN; Protocol PRN Reason: Hyglycemia Protocol Dextrose (Glutose 15) 0 gm PO ONCE PRN; Protocol PRN Reason: Hypoglycemia Protocol Glucagon (Glucagen Diagnostic Kit) 0 mg IM STAT PRN; Protocol PRN Reason: Hypoglycemia Protocol Heparin Sodium (Porcine) (Heparin) 5,000 units SC Q12 [facility] PRN Reason: Protocol Last Admin: 08/11/17 09:58 Dose: 5,000 units Linezolid (Zyvox 600mg/300ml D5w) 600 mg in 300 mls @ 300 mls/hr IVPB Q12@0300, 1500 [facility] Last Admin: 08/11/17 14:02 Dose: 300 mls/hr Sodium Chloride (Sodium Chloride 0.9%) 1,000 mls @ 12.21 mls/hr IV .Q24H PRN PRN Reason: Hypotension Insulin Detemir (Levemir) 25 units SC HS [facility] Last Admin: 08/10/17 21:51 Dose: 25 u Insulin Human Regular (Humulin R) 0 units SC Q4 [facility] PRN Reason: Protocol Last Admin: 08/11/17 12:53 Dose: 2 units Insulin Lispro Protam/Lispro Human (Humalog Mix 75/25) 10 units SC BID [facility] Last Admin: 08/11/17 09:58 Dose: 10 units Metoprolol Tartrate (Lopressor) 25 mg PO Q12 [facility] Last Admin: 08/11/17 09:59 Dose: 25 mg Morphine Sulfate (Morphine) 2 mg IVP Q6 PRN PRN Reason: Pain, severe (8-10) Last Admin: 08/10/17 12:52 Dose: 2 mg Oxycodone/Acetaminophen (Percocet 5/325 Mg Tab) 1 tab PO Q4 PRN PRN Reason: Pain, moderate (4-7) Stop: 08/12/17 18:02 Oxycodone/Acetaminophen (Percocet 5/325 Mg Tab) 2 tab PO Q4 PRN PRN Reason: Pain, severe (8-10) Stop: 08/12/17 18:02 Last Admin: 08/11/17 10:06 Dose: 2 tab Pantoprazole Sodium (Protonix Ec Tab) 40 mg PO DAILY [facility] Last Admin: 08/11/17 09:59 Dose: 40 mg - Labs Labs: 08/11/17 05:30 08/11/17 05:30 PT 12.8 Seconds (9.8-13.1) 08/09/17 13:30 INR 1.1 (0.9-1.2) 08/09/17 13:30
[2017-08-11] MEDS: Insulin Detemir 100 Units/ml Inj SC SCH (21:40)
[2017-08-12] MEDS: Insulin Regular 100 units/ml SC SCH ×6 (00:54→21:33)
[2017-08-12] MEDS: Linezolid 600 mg in D5W 300 ml 600 MG/300 ML BAG IVPB SCH ×2 (02:13→15:22)
[2017-08-12] MEDS: Oxycodone/Acetaminophen 5/325 mg Tab PO PRN ×3 (04:58→17:45)
[2017-08-12 06:25] LABS: ALB/GLOB RATIO 0.8 (1.0-2.1); BILIRUBIN,TOTAL 0.3 mg/dl (0.2-1.3); CALCIUM 8.8 mg/dL (8.4-10.2); POTASSIUM 4.2 MMOL/L (3.6-5.0)
--- NOTE | 2017-08-12 08:25 | CP.PCM.PN ---
Subjective - Date & Time of Evaluation Date of Evaluation: 08/12/17 Time of Evaluation: 08:24 - Subjective Subjective: Podiatry Progress Note - Dr. Mahoney 56 year old male seen and evaluated at bedside POD#3 s/p right foot partial 5th ray amputation (DOS: 08/09/17). Patient seen resting comfortably, AAOx3 and NAD. Patient denies any acute events overnight. Patient states he has been ambulating less frequently as he reports mild pain to surgical site; however states he uses his surgical shoe to ambulate. Patient denies N/V/F/D/C/SOB/calf pain. Offers no other pedal complaints at this time. Objective - Vital Signs/Intake and Output Vital Signs (last 24 hours): Temp Pulse Resp BP Pulse Ox 98.6 F 95 H 20 161/83 H 98 08/12/17 08:14 08/12/17 08:14 08/12/17 08:14 08/12/17 08:14 08/12/17 08:14 - Medications Medications: Current Medications Acetaminophen (Tylenol 325mg Tab) 650 mg PO Q6 PRN PRN Reason: Pain, Mild (1-3) Acetaminophen (Tylenol 325mg Tab) 650 mg PO Q4 PRN PRN Reason: Pain, Mild (1-3) Amlodipine Besylate (Norvasc) 10 mg PO DAILY [facility] Last Admin: 08/11/17 09:59 Dose: 10 mg Dextrose (Dextrose 50% Inj) 0 ml IV STAT PRN; Protocol PRN Reason: Hyglycemia Protocol Dextrose (Glutose 15) 0 gm PO ONCE PRN; Protocol PRN Reason: Hypoglycemia Protocol Glucagon (Glucagen Diagnostic Kit) 0 mg IM STAT PRN; Protocol PRN Reason: Hypoglycemia Protocol Linezolid (Zyvox 600mg/300ml D5w) 600 mg in 300 mls @ 300 mls/hr IVPB Q12@0300, 1500 [facility] Last Admin: 08/12/17 02:13 Dose: 300 mls/hr Sodium Chloride (Sodium Chloride 0.9%) 1,000 mls @ 12.21 mls/hr IV .Q24H PRN PRN Reason: Hypotension Insulin Detemir (Levemir) 25 units SC HS [facility] Last Admin: 08/11/17 21:40 Dose: 25 u Insulin Human Regular (Humulin R) 0 units SC Q4 [facility] PRN Reason: Protocol Last Admin: 08/12/17 05:03 Dose: Not Given Insulin Lispro Protam/Lispro Human (Humalog Mix 75/25) 10 units SC BID [facility] Last Admin: 08/11/17 17:28 Dose: 10 units Metoprolol Tartrate (Lopressor) 25 mg PO Q12 [facility] Last Admin: 08/11/17 20:24 Dose: 25 mg Morphine Sulfate (Morphine) 2 mg IVP Q6 PRN PRN Reason: Pain, severe (8-10) Last Admin: 08/10/17 12:52 Dose: 2 mg Oxycodone/Acetaminophen (Percocet 5/325 Mg Tab) 1 tab PO Q4 PRN PRN Reason: Pain, moderate (4-7) Stop: 08/12/17 18:02 Oxycodone/Acetaminophen (Percocet 5/325 Mg Tab) 2 tab PO Q4 PRN PRN Reason: Pain, severe (8-10) Stop: 08/12/17 18:02 Last Admin: 08/12/17 04:58 Dose: 2 tab Pantoprazole Sodium (Protonix Ec Tab) 40 mg PO DAILY [facility] Last Admin: 08/11/17 09:59 Dose: 40 mg - Labs Labs: 08/11/17 05:30 08/12/17 05:45 PT 12.8 Seconds (9.8-13.1) 08/09/17 13:30 INR 1.1 (0.9-1.2) 08/09/17 13:30 - Constitutional Appears: Well, Non-toxic, No Acute Distress - Extremities Exam Additional comments: VASC: DP pulses non-palpable b/l. PT pulse palpable 2/4 to left foot, non- palpable to right foot. CFT >3 to LLE. TG warm to warm b/l. Mild nonpitting edema noted proximal to RLE surgical site. NEURO: Epicritic and protective sensation grossly diminished b/l DERM: RLE 5th ray incision appears well-coapted with sutures intact and no wound dehiscence noted. No drainage or purulence able to be expressed from incision. No erythema noted. ORTHO: Partial 5th ray amputation right foot with mild tenderness to palpation surgical incision. - Neurological Exam Neurological Exam: Alert, Awake, Oriented x3 - Psychiatric Exam Psychiatric exam: Normal Affect, Normal Mood Assessment and Plan - Assessment and Plan (Free Text) Assessment: 56 y/o male seen and evaluated at bedside POD#3 right foot partial 5th ray resection (DOS 08/09/17) Plan: Patient seen and evaluated at bedside Discussed with attending, Dr. Mahoney Labs and vitals reviewed = WBC 13.0 (increasing, 08/11 @ 12.5), afebrile Surgical site cleansed with sterile saline and dressed with betadine soaked 4x4s , DSD Patient WBAT RLE in surgical shoe Continue abx per ID = Zyvox Intra-op cultures final report shows staphylococcus aureus, enterococcus faecalis Podiatry will continue to follow patient while in house
[2017-08-12] MEDS: Pantoprazole 40 mg EC Tab PO SCH (08:28)
[2017-08-12] MEDS: Insulin Lispro Mix 75/25 100 units/ml (HumaLog) 10ml SC SCH ×2 (08:30→17:39)
--- NOTE | 2017-08-12 08:51 | PN ---
DATE: 08/11/2017 SUBJECTIVE: The patient seen and examined. Interim events noted. Consults noted and appreciated. The patient remains on regular medical floor. Pain is adequately controlled. No chest pain, no shortness of breath. PHYSICAL EXAMINATION GENERAL: The patient is in no acute distress. VITAL SIGNS: Stable. HEART: S1 and S2, normal and regular. LUNGS: Good bilateral air exchange. ABDOMEN: Soft and nontender. EXTREMITIES: The patient is status post amputation. No edema. No calf swelling. No tenderness. No acute ischemia. CENTRAL NERVOUS SYSTEM: Essentially unchanged. DIAGNOSTIC DATA: Available diagnostic. Konstantin Nuñez MD
[2017-08-12 09:39] LABS: HEMATOCRIT 34.3 % (35.0-51.0); MEAN CELL VOLUME 89.1 fl (80.0-94.0); MEAN CORPUSCULAR HEMOGLOBIN 30.5 pg (27.0-31.0); MEAN CORPUSCULAR HGB CONC 34.2 g/dL (33.0-37.0); RED CELL DISTRIBUTION WIDTH 12.1 % (11.5-14.5)
--- NOTE | 2017-08-12 16:49 | OP ---
PROCEDURE DATE: 08/09/2017 PREOPERATIVE DIAGNOSIS: Right foot fifth digit infected ulcer. POSTOPERATIVE DIAGNOSIS: Right foot fifth digit infected ulcer. PROCEDURE: Right foot fifth digit amputation with metatarsal head resection. SURGEON: Wilmer Mahoney DPM, FACFAS PEWTER FABRICATOR: Kenisha Aragon DPM TYPE OF ANESTHESIA: IV sedation plus local. ANESTHESIA ADMINISTERED BY: Dr. Brady and Dr. Canela. INDICATIONS: The patient is a 56-year-old male with the above diagnosis. The patient has exhausted all conservative treatment at this time and now requires surgical intervention after being worked up and cleared for sugery by Dr. Galicia. The patient signed the consent after careful explanation of risks, benefits, complications, and alternatives for surgical procedure. No guarantees were given nor implied. N.p.o. status was confirmed prior to taking the patient to the operating room. DESCRIPTION OF PROCEDURE: The patient was brought into the operating room and placed on the operating room table in a supine position. Time-out was performed for identification of the correct patient and procedure. The patient then received a total of 15 mL of a 1:1 mixture of 1% lidocaine plain and 0.5% Marcaine plain in a V-block fashion proximal to the right foot fifth digit and fifth metatarsal. The right foot was then prepped and draped in normal sterile manner and the procedure began. No tourniquet was utilized during the procedure. Attention was then drawn to the dorsal aspect of the right fifth digit where a fish-mouth type incision was made extending from the dorsal aspect of the fifth metatarsal head distally and plantarly around the fifth digit using a sterile 15 blade. The incision was then extended down to the subcutaneous layers down to the level of bone. Using a bone clamp to stabilize the toe, the fifth digit was then disarticulated from the foot at the level of the metatarsophalangeal joint. Next, using the sagittal saw, the fifth metatarsal head was resected from the shaft of the bone with viable bone and soft tissue margins noted. At this point, deep wound cultures were performed. A Simpulse pulse lavage system was then utilized to copiously irrigate the wound with sterile saline. Using a fresh #15 blade, the skin margins were debulked to create a suitable flap for closure. The surgical site was then sutured close using 3-0 nylon sutures. There were two 0.5-cm long incision areas that were left open, one at the proximal end and one at the distal end of the surgical incision site. These openings were packed with 1/4-inch iodoform packing and 3-0 nylon suture, it was threaded through the skin edges, but not tied down. The suture ends were held with Coban dressing. The wounds were then dressed with Xeroform, 4x4 gauze, Kerlix and a loosely-wrapped Duane bandage. POSTOPERATIVE CONDITION: The patient tolerated the local anesthesia and procedure well and was escorted to the recovery room with neurovascular status intact to the right foot. The patient is to remain weightbearing as tolerated to the right lower extremity using a surgical shoe. The patient will remain in house and podiatry will continue to follow. Upon discharge, the patient is to follow up in [facility] within 1 week. Kenisha Aragon DPM Wilmer Mahoney DPM, FACFAS GERTRUDE
[2017-08-12] MEDS: Insulin Detemir 100 Units/ml Inj SC SCH (22:51)
[2017-08-13] MEDS: Insulin Regular 100 units/ml SC SCH ×5 (01:47→17:07)
[2017-08-13] MEDS: Linezolid 600 mg in D5W 300 ml 600 MG/300 ML BAG IVPB SCH ×2 (03:17→14:12)
[2017-08-13 07:30] VITALS: RESP 18
--- NOTE | 2017-08-13 07:56 | CP.PCM.PN ---
Subjective - Date & Time of Evaluation Date of Evaluation: 08/13/17 Time of Evaluation: 07:53 - Subjective Subjective: Podiatry Progress Note - Dr. Mahoney 56 year old male seen and evaluated at bedside POD#4 s/p right foot partial 5th ray amputation (DOS: 08/09/17). Patient seen resting comfortably at time of visit. Patient reports mild pain overnight, however denies any pain currently. Patient states he has been elevating his leg when in bed. Patient denies N/V/F/D /C/SOB/calf pain. No other pedal complaints at this time. Objective - Vital Signs/Intake and Output Vital Signs (last 24 hours): Temp Pulse Resp BP Pulse Ox 99.3 F 85 18 147/81 97 08/13/17 07:29 08/13/17 07:29 08/13/17 07:29 08/13/17 07:29 08/13/17 07:29 - Medications Medications: Current Medications Acetaminophen (Tylenol 325mg Tab) 650 mg PO Q6 PRN PRN Reason: Pain, Mild (1-3) Acetaminophen (Tylenol 325mg Tab) 650 mg PO Q4 PRN PRN Reason: Pain, Mild (1-3) Amlodipine Besylate (Norvasc) 10 mg PO DAILY [facility] Last Admin: 08/12/17 08:28 Dose: 10 mg Dextrose (Dextrose 50% Inj) 0 ml IV STAT PRN; Protocol PRN Reason: Hyglycemia Protocol Dextrose (Glutose 15) 0 gm PO ONCE PRN; Protocol PRN Reason: Hypoglycemia Protocol Glucagon (Glucagen Diagnostic Kit) 0 mg IM STAT PRN; Protocol PRN Reason: Hypoglycemia Protocol Linezolid (Zyvox 600mg/300ml D5w) 600 mg in 300 mls @ 300 mls/hr IVPB Q12@0300, 1500 [facility] Last Admin: 08/13/17 03:17 Dose: 300 mls/hr Sodium Chloride (Sodium Chloride 0.9%) 1,000 mls @ 12.21 mls/hr IV .Q24H PRN PRN Reason: Hypotension Insulin Detemir (Levemir) 25 units SC HS [facility] Last Admin: 08/12/17 22:51 Dose: 25 u Insulin Human Regular (Humulin R) 0 units SC Q4 [facility] PRN Reason: Protocol Last Admin: 08/13/17 07:08 Dose: Not Given Insulin Lispro Protam/Lispro Human (Humalog Mix 75/25) 10 units SC BID [facility] Last Admin: 08/12/17 17:39 Dose: 10 units Metoprolol Tartrate (Lopressor) 25 mg PO Q12 [facility] Last Admin: 08/12/17 21:30 Dose: 25 mg Morphine Sulfate (Morphine) 2 mg IVP Q6 PRN PRN Reason: Pain, severe (8-10) Last Admin: 08/13/17 02:44 Dose: 2 mg Pantoprazole Sodium (Protonix Ec Tab) 40 mg PO DAILY [facility] Last Admin: 08/12/17 08:28 Dose: 40 mg - Labs Labs: 08/12/17 05:45 08/12/17 05:45 PT 12.8 Seconds (9.8-13.1) 08/09/17 13:30 INR 1.1 (0.9-1.2) 08/09/17 13:30 - Constitutional Appears: Well, Non-toxic, No Acute Distress - Extremities Exam Additional comments: VASC: DP pulses non-palpable b/l. PT pulse palpable 2/4 to left foot, non- palpable to right foot. CFT >3 to LLE. TG warm to warm b/l. Mild nonpitting edema noted proximal to RLE surgical site, decreasing. NEURO: Epicritic and protective sensation grossly diminished b/l DERM: RLE 5th ray incision appears well-coapted with sutures intact and no wound dehiscence noted. No drainage or purulence able to be expressed from incision. No erythema noted. Area of pallor noted to proximal incision. ORTHO: Partial 5th ray amputation right foot with mild tenderness to palpation surgical incision. - Neurological Exam Neurological Exam: Alert, Awake, Oriented x3 - Psychiatric Exam Psychiatric exam: Normal Affect, Normal Mood Assessment and Plan - Assessment and Plan (Free Text) Assessment: 56 y/o male seen and evaluated at bedside POD#4 right foot partial 5th ray resection (DOS 08/09/17) Plan: Patient seen and evaluated at bedside Discussed with attending, Dr. Mahoney Labs and vitals reviewed = WBC 13.0 10/ (increasing, 08/11 @ 12.5), afebrile ( Tmax 99.3) Surgical site cleansed with sterile saline and dressed with betadine soaked 4x4s , DSD Patient WBAT RLE in surgical shoe Continue abx per ID = Zyvox; per Dr. Jamison, pt to complete 3 weeks Intra-op cultures final report shows staphylococcus aureus, enterococcus faecalis Podiatry will continue to follow patient while in house Patient is to follow up in podiatry clinic next week saturday for outpatient care
[2017-08-13] MEDS: Pantoprazole 40 mg EC Tab PO SCH (08:28)
[2017-08-13] MEDS: Insulin Lispro Mix 75/25 100 units/ml (HumaLog) 10ml SC SCH ×2 (08:31→17:08)
[2017-08-13] MEDS ORDERED: Oxycodone/Acetaminophen 5/325 mg Tab PO PRN ×2 (08:42→08:45)
[2017-08-13 09:01] LABS: MEAN CELL VOLUME 88.4 fl (80.0-94.0); MEAN CORPUSCULAR HEMOGLOBIN 30.2 pg (27.0-31.0); MEAN CORPUSCULAR HGB CONC 34.2 g/dL (33.0-37.0); RED CELL DISTRIBUTION WIDTH 12.1 % (11.5-14.5); WHITE BLOOD COUNT 10.9 K/uL (4.8-10.8)
[2017-08-13 09:10] LABS: CALCIUM 8.6 mg/dL (8.4-10.2); POTASSIUM 4.2 MMOL/L (3.6-5.0)
--- NOTE | 2017-08-13 12:43 | CP.PCM.PCO ---
Assessment/Plan - Assessment/Plan Assessment (Free Text): Pt stable, doing well after partial 5th digit amputation, ambulating without assistance. Pt cleared by podiatry for d/c, to ambulate with surgical shoe. Per Dr. Jamison, pt to complete 3 weeks of zyvox. Rx given to CM and medication approved by insurance. All Rx filled and given to pt. Pt seen by Dr. Murray and cleared for d/c home. Pt and RN aware of plan. Pt to f/u with Dr. Mahoney in the wound care clinic next week Saturday and with Dr. Murray in 1-2 weeks.
[2017-08-13 16:28] VITALS: BP 158/91; PULSE 91; TEMP 97.8; O2SAT 98
--- NOTE | 2017-08-13 17:45 | CP.PCM.DIS ---
Provider - Provider Date of Admission: 08/02/17 22:30 Attending physician: Yvon Murray MD Time Spent in preparation of Discharge (in minutes): 30 Hospital Course - Lab Results Lab Results: Micro Results 08/09/17 17:38 Foot - Right Gram Stain - Final 08/09/17 17:38 Foot - Right Wound Culture - Final Staphylococcus Aureus Enterococcus Faecalis 08/09/17 17:38 Foot - Right Gram Stain - Final 08/09/17 17:38 Foot - Right Wound Culture - Final Enterococcus Faecalis Staphylococcus Aureus 08/02/17 10:00 Blood Blood Culture - Final NO GROWTH AFTER 5 DAYS 08/02/17 10:00 Blood Gram Stain - Final TEST NOT PERFORMED 08/02/17 21:22 Blood Blood Culture - Final NO GROWTH AFTER 5 DAYS 08/02/17 21:22 Blood Gram Stain - Final TEST NOT PERFORMED 08/03/17 13:00 Foot - Right Gram Stain - Final 08/03/17 13:00 Foot - Right Wound Culture - Final Methicillin Resistant S Aureus Most Recent Lab Values WBC 10.9 K/uL (4.8-10.8) H 08/13/17 08:25 RBC 3.85 Mil/uL (4.40-5.90) L 08/13/17 08:25 Hgb 11.6 g/dL (12.0-18.0) L 08/13/17 08:25 Hct 34.0 % (35.0-51.0) L 08/13/17 08:25 MCV 88.4 fl (80.0-94.0) 08/13/17 08:25 MCH 30.2 pg (27.0-31.0) 08/13/17 08:25 MCHC 34.2 g/dL (33.0-37.0) 08/13/17 08:25 RDW 12.1 % (11.5-14.5) 08/13/17 08:25 Plt Count 375 K/uL (130-400) 08/13/17 08:25 MPV 8.1 fl (7.2-11.7) 08/02/17 21:26 Neut % (Auto) 79.2 % (50.0-75.0) H 08/02/17 21:26 Lymph % (Auto) 12.1 % (20.0-40.0) L 08/02/17 21:26 [place] % (Auto) 7.5 % (0.0-10.0) 08/02/17 21: Eos % (Auto) 0.4 % (0.0-4.0) 08/02/17 21: Baso % (Auto) 0.8 % (0.0-2.0) 08/02/17 21: Neut # 10.6 K/uL (1.8-7.0) H 08/02/17 21: Lymph # 1.6 K/uL (1.0-4.3) 08/02/17 21: [place] # 1.0 K/uL (0.0-0.8) H 08/02/17: Eos # 0.0 K/uL (0.0-0.7) 08/02/17: Baso # 0.1 K/uL (0.0-0.2) 08/02/17 21: ESR 109 mm/hr (0-20) H 08/04/17 06:30 PT 12.8 Seconds (9.8-13.1) 08/09/17 13:30 INR 1.1 (0.9-1.2) 08/09/17 13:30 Sodium 137 mmol/l (132-148) 08/13/17 08:25 Potassium 4.2 MMOL/L (3.6-5.0) 08/13/17 08:25 Chloride 104 mmol/L (98-107) 08/13/17 08:25 Carbon Dioxide 24 mmol/L (22-30) 08/13/17 08:25 Anion Gap 14 (10-20) 08/13/17 08:25 BUN 20 mg/dl (9-20) 08/13/17 08:25 Creatinine 1.8 mg/dL (0.8-1.5) H 08/13/17 08:25 Est GFR ( Amer) 48 08/13/17 08:25 Est GFR (Non-Af Amer) 40 08/13/17 08:25 POC Glucose (mg/dL) 191 mg/dL (65-110) H 08/13/17 17:03 Random Glucose 148 mg/dL (75-110) H 08/13/17 08:25 Hemoglobin A1c 15.8 % (4.2-6.5) H 08/04/17 07:30 Lactic Acid 1.1 MMOL/L (0.7-2.1) 08/02/17 21:26 Calcium 8.6 mg/dL (8.4-10.2) 08/13/17 08:25 Total Bilirubin 0.3 mg/dl (0.2-1.3) 08/12/17 05:45 AST 30 U/L (17-59) 08/12/17 05:45 ALT 28 U/L (21-72) 08/12/17 05:45 Alkaline Phosphatase 79 U/L (38-126) 08/12/17 05:45 Total Protein 7.0 G/DL (6.3-8.2) 08/12/17 05:45 Albumin 3.1 g/dL (3.5-5.0) L 08/12/17 05:45 Globulin 3.9 gm/dL (2.2-3.9) 08/12/17 05:45 Albumin/Globulin Ratio 0.8 (1.0-2.1) L 08/12/17 05:45 Triglycerides 96 mg/DL (0-149) D 08/04/17 06:30 Cholesterol 227 mg/dL (0-199) H 08/04/17 06:30 LDL Cholesterol Direct 131 mg/dL (0-129) H 08/04/17 06:30 HDL Cholesterol 59 MG/DL (30-70) 08/04/17 06:30 TSH 3rd Generation 4.15 mIU/ML (0.46-4.68) 08/04/17 06:30 Urine Color Straw (YELLOW) 08/02/17 21:26 Urine Clarity Clear (Clear) 08/02/17 21:26 Urine pH 6.0 (5.0-8.0) 08/02/17 21:26 Ur Specific [place] 1.021 (1.003-1.030) 08/02/17 21:26 Urine Protein 100 mg/dL (NEGATIVE) 08/02/17 21:26 Urine Glucose (UA) >=500 mg/dL (Normal) 08/02/17 21:26 Urine Ketones Negative mg/dL (NEGATIVE) 08/02/17 21:26 Urine Blood Small (NEGATIVE) 08/02/17 21:26 Urine Nitrate Negative (NEGATIVE) 08/02/17 21:26 Urine Bilirubin Negative (NEGATIVE) 08/02/17 21:26 Urine Urobilinogen 0.2-1.0 mg/dL (0.2-1.0) 08/02/17 21:26 Ur Leukocyte Esterase Neg [place]/uL (Negative) 08/02/17 21:26 Urine RBC (Auto) 12 /hpf (0-3) H 08/02/17 21:26 Urine Microscopic WBC 3 /hpf (0-5) 08/02/17 21:26 Ur Squamous Epith Cells < 1 /hpf (0-5) 08/02/17 21:26 Vancomycin Trough 6.8 ug/mL (5.0-10.0) 08/07/17 08:10 - Hospital Course Hospital Course: Patient was admitted for uncontrolled diabetes and foot ulcer. Patient's blood sugar was controlled in hospital and was given IV antibiotics .Pt is stable, doing well after partial 5th digit amputation, ambulating without assistance. Pt cleared by podiatry for d/c, to ambulate with surgical shoe. Per Dr. Jamison, pt to complete 3 weeks of zyvox. Rx given to CM and medication approved by insurance. All Rx filled and given to pt. Pt seen by Dr. Murray and cleared for d/c home. Pt and RN aware of plan. Pt to f/u with Dr. Mahoney in the wound care clinic next week Saturday and with Dr. Murray in 1-2 weeks. Discharge Exam - Head Exam Head Exam: ATRAUMATIC, NORMAL INSPECTION, NORMOCEPHALIC - Respiratory Exam Respiratory Exam: Clear to PA & Lateral, NORMAL BREATHING PATTERN - Cardiovascular Exam Cardiovascular Exam: REGULAR RHYTHM, +S1, +S2 - GI/Abdominal Exam GI & Abdominal Exam: Normal Bowel Sounds. absent: Tenderness - Neurological Exam Neurological exam: Alert, CN II-XII Intact, Oriented x3 Discharge Plan - Discharge Medications Prescriptions: amLODIPine [Norvasc] 10 mg PO DAILY #30 tab Insulin Detemir [Levemir] 25 units SC HS #1 vial Insulin Lispro Mix 75/25 [HumaLog MIX 75/25] 10 units SC BID #1 vial Linezolid [Zyvox] 600 mg PO BID #42 tab Metoprolol Tartrate [Lopressor] 25 mg PO Q12 #60 tab - Follow Up Plan Condition: STABLE Disposition: HOME/ ROUTINE Instructions: Linezolid (By mouth), MRSA (Methicillin Resistant Staphylococcus Aureus) (DC), Giving an Insulin Injection (DC), Chronic Wound Care (DC), Diabetic Foot Ulcers (DC), Toe Amputation (DC) Referrals: Wilmer Mahoney DPM [Doctor Podiatric Medicine] - Yvon Murray MD [Staff Provider] - Richard Jamison MD [Medical Doctor] - Sterling Galicia MD [Staff Provider] -
== END 2017-08-13 17:50 | disposition home health service (06) ==
LOC: H.ER 20:36 → H.ERHOLD 22:30 → H.MEDSURG1 08-03 00:20
PROVIDERS: ADMIT Family Medicine; ATTEND Family Medicine
PROC: 0Y6X0Z0 Detachment at Right 5th Toe, Complete, Open Approach (ICD-10-PCS; principal; 2017-08-09 16:30)
DX: E11.621 Type 2 diabetes mellitus with foot ulcer (principal); L97.519 Non-pressure chronic ulcer of other part of right foot with unspecified severity; E11.40 Type 2 diabetes mellitus with diabetic neuropathy, unspecified; E11.52 Type 2 diabetes mellitus with diabetic peripheral angiopathy with gangrene; E11.22 Type 2 diabetes mellitus with diabetic chronic kidney disease; E11.65 Type 2 diabetes mellitus with hyperglycemia; B95.62 Methicillin resistant Staphylococcus aureus infection as the cause of diseases classified elsewhere; N18.3 Chronic kidney disease, stage 3 (moderate); I12.9 Hypertensive chronic kidney disease with stage 1 through stage 4 chronic kidney disease, or unspecified chronic kidney disease; B95.2 Enterococcus as the cause of diseases classified elsewhere; E78.5 Hyperlipidemia, unspecified; Z91.19 Patient's noncompliance with other medical treatment and regimen; Z79.4 Long term (current) use of insulin

== ENCOUNTER 2017-08-19 19:16 | Emergency (ER) | payer MEDICAID ==
[2017-08-19 19:16] VITALS: BMI 22.1
[2017-08-19 19:40] VITALS: BP 178/95; PULSE 90; RESP 17; TEMP 97.6; O2SAT 98
--- NOTE | 2017-08-19 21:23 | ED PDOC ---
Lower Extremity Pain/Injury Time Seen by Provider: 08/19/17 19:50 Chief Complaint (Nursing): Lower Extremity Problem/Injury Chief Complaint (Provider): Right foot pain History Per: Patient History/Exam Limitations: no limitations Onset/Duration Of Symptoms: Days Current Symptoms Are (Timing): Still Present Additional History Per: Patient Additional Complaint(s): 56yo male with history of diabetes, hypertension, who is currently non- compliant with medications, presents to the ED for evaluation of right foot pain. Patient was previously evaluated in this facility for DKA, hyperosmolar non-ketotic syndrome. Patient states his foot pain has been persistent for the past week - he denies any fever, nausea or vomiting. Patient states he was supposed to have his bandages changes but has not had it yet. Patient well known to podiatry clinic. Past Medical History Reviewed: Historical Data, Nursing Documentation, Vital Signs Vital Signs: Last Vital Signs Temp 97.6 F 08/19/17 19:26 Pulse 90 08/19/17 19:26 Resp 17 08/19/17 19:26 BP 178/95 H 08/19/17 19:26 Pulse Ox 98 08/19/17 19:26 - Medical History PMH: Diabetes (NIDDM), HTN, Hypercholesterolemia Denies: HIV, Chronic Kidney Disease - Surgical History Surgical History: No Surg Hx - Family History Family History: States: No Known Family Hx, Unknown Family Hx - Social History Current smoker - smoking cessation education provided: No Alcohol: Occasional Drugs: Denies - Immunization History Hx Tetanus Toxoid Vaccination: No Hx Influenza Vaccination: No Hx Pneumococcal Vaccination: No - Home Medications Home Medications: Ambulatory Orders Medication Instructions Recorded Insulin Detemir [Levemir] 25 units SC HS #1 vial 08/08/17 Insulin Lispro Mix 75/25 [HumaLog 10 units SC BID #1 vial 08/08/17 MIX 75/25] Metoprolol Tartrate [Lopressor] 25 mg PO Q12 #60 tab 08/08/17 amLODIPine [Norvasc] 10 mg PO DAILY #30 tab 08/08/17 Linezolid [Zyvox] 600 mg PO BID #42 tab 08/12/17 - Allergies Allergies/Adverse Reactions: Allergies Allergy/AdvReac Type Severity Reaction Status Date / Time No Known Allergies Allergy Verified 07/20/17 17:56 Review of Systems ROS Statement: Except As Marked, All Systems Reviewed And Found Negative Constitutional: Negative for: Fever Gastrointestinal: Negative for: Nausea, Vomiting Musculoskeletal: Positive for: Foot Pain (right) Physical Exam - Physical Exam Appears: Positive for: Well Head Exam: Positive for: ATRAUMATIC Skin: Positive for: Normal Color, Warm, Dry Cardiovascular/Chest: Positive for: Regular Rate, Rhythm Respiratory: Positive for: Normal Breath Sounds Extremity: Positive for: Other (r foot 5th digit sp amputation, no dehiscene. no cellulitis or discharge noted. pulses intact. ) - Laboratory Results Result Diagrams: 08/19/17 21:20 08/19/17 21:50 - ECG O2 Sat by Pulse Oximetry: 98 Medical Decision Making Medical Decision Making: Time: 2040 Impression: Right foot pain Plan: -- XR Right foot -- CMP -- Podiatry consult Reassess Time: 2244 Patient seen and evaluated by podiatry. Upon examination by podiatry resident, patient had no signs of infection. Foot was wrapped and patient to be discharge home with instructions to follow up at podiatry clinic. Scribe Attestation: Documented by Elizabeth Jesus acting as a scribe for Lavinia Quach MD. Provider Attestation: All medical record entries made by the Scribe were at my direction and personally dictated by me. I have reviewed the chart and agree that the record accurately reflects my personal performance of the history, physical exam, medical decision making, and the department course for this patient. I have also personally directed, reviewed, and agree with the discharge instructions and disposition. Disposition - Clinical Impression Clinical Impression: Foot pain - Patient ED Disposition Is Patient to be Admitted: No Counseled Patient/Family Regarding: Studies Performed, Diagnosis, Need For Followup - Disposition Referrals: [facility] [Outside] [facility] [Outside] Podiatry Clinic [Outside] Disposition: Routine/Home Disposition Time: 21:00 Condition: STABLE Additional Instructions: follow up with Dr Mahoney as outpatient in 1-2 days frequent dressing changes return to the ED with any worsening or concerning symptoms Instructions: Acute Wound Care (ED) Forms: [employer] (Frisian)
[2017-08-19 21:24] LABS: BASO # 0.1 K/uL (0.0-0.2); BASO % 1.4 % (0.0-2.0); EOS # 0.2 K/uL (0.0-0.7); HEMATOCRIT 38.5 % (35.0-51.0); LYMPH # 2.3 K/uL (1.0-4.3); LYMPH % 23.7 % (20.0-40.0); MEAN CELL VOLUME 89.3 fl (80.0-94.0); MEAN CORPUSCULAR HEMOGLOBIN 30.1 pg (27.0-31.0); MEAN CORPUSCULAR HGB CONC 33.7 g/dL (33.0-37.0); MEAN PLATELET VOLUME 6.7 fl (7.2-11.7); MONO # 0.5 K/uL (0.0-0.8); MONO % 5.4 % (0.0-10.0); NEUT # 6.6 K/uL (1.8-7.0); NEUT % 67.5 % (50.0-75.0); RED CELL DISTRIBUTION WIDTH 12.3 % (11.5-14.5); WHITE BLOOD COUNT 9.8 K/uL (4.8-10.8)
[2017-08-19 21:35] LABS: ALB/GLOB RATIO 0.8 (1.0-2.1); BILIRUBIN,TOTAL 0.5 mg/dl (0.2-1.3); CALCIUM 9.7 mg/dL (8.4-10.2); POTASSIUM 4.6 MMOL/L (3.6-5.0); TOTAL PROTEIN 8.4 G/DL (6.3-8.2)
[2017-08-19] MEDS ORDERED: Insulin Regular 100 units/ml SC STA (22:36)
[2017-08-19] MEDS ORDERED: Povidone Iodine Topical 10% Sol ONE (22:44)
[2017-08-19] MEDS ORDERED: Insulin Regular 100 units/ml ONE (22:55)
--- NOTE | 2017-08-20 10:22 | RAD ---
PROCEDURE: Right Foot Radiographs. HISTORY: foot pain COMPARISON: 08/09/2017. FINDINGS: BONES: Again seen are postsurgical changes of amputation at the level of mid 5th metatarsal. There is interval resolution of postoperative subcutaneous emphysema in the amputation stump. The remaining osseous structures are normal in appearance without acute fracture or bone destruction JOINTS: Normal. SOFT TISSUES: Normal. OTHER FINDINGS: None. 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 No acute findings.
--- NOTE | 2017-08-20 13:28 | CP.PCM.CON ---
History of Present Illness - History of Present Illness History of Present Illness: 56 year old male presents to ED ten days s/p right partial fifth ray amputation. Patient states that he is in severe pain to his surgical site. He states that he has been walking on the foot regularly, some times multiple miles at a time, using his surgical shoe. Patient also states that he forgot when his followup appointment with Dr. Mahoney was and has not had his dressing changed since the surgery. Patient denies any further pedal complaints at this time. He denies getting the dressing wet. He denies any recent N/V/F/C/CP/SOB. Review of Systems - Review of Systems Review of Systems: ROS unremarkable outside of current HPI Past Patient History - Infectious Disease Hx of Infectious Diseases: None - Past Medical History & Family History Past Medical History?: Yes - Past Social History Smoking Status: Never Smoked - CARDIAC Hx Hypercholesterolemia: Yes Hx Hypertension: Yes - PULMONARY Hx Respiratory Disorders: No - NEUROLOGICAL Hx Neurological Disorder: No - HEENT Hx HEENT Problems: No - RENAL Hx Chronic Kidney Disease: No - ENDOCRINE/METABOLIC Hx Endocrine Disorders: Yes Hx Diabetes Mellitus Type 1: Yes - HEMATOLOGICAL/ONCOLOGICAL Hx Human Immunodeficiency Virus (HIV): No - INTEGUMENTARY Hx Dermatological Problems: No - MUSCULOSKELETAL/RHEUMATOLOGICAL Hx Musculoskeletal Disorders: No Hx Falls: Yes (6 months ago "when sugar was too high") - GASTROINTESTINAL Hx Gastrointestinal Disorders: Yes Hx Nausea: Yes Hx Vomiting: Yes - GENITOURINARY/GYNECOLOGICAL Hx Genitourinary Disorders: No - PSYCHIATRIC Hx Psychophysiologic Disorder: No Hx Substance Use: Yes - SURGICAL HISTORY Hx Surgeries: Yes Hx Open Reduction Internal Fixation: Yes (Left Tib/Fib fracture) - ANESTHESIA Hx Anesthesia: Yes Hx Anesthesia Reactions: No Hx Malignant Hyperthermia: No Meds Allergies/Adverse Reactions: Allergies Allergy/AdvReac Type Severity Reaction Status Date / Time No Known Allergies Allergy Verified 07/20/17 17:56 Physical Exam - Constitutional Appears: Well, Non-toxic - Extremities Exam Additional comments: RLE focused exam: VASC: DP pulses non-palpable b/l. PT pulse palpable 2/4 to left foot, non- palpable to right foot. CFT >3 to LLE. TG warm to warm b/l. Mild nonpitting edema noted proximal to RLE surgical site, decreasing. NEURO: Epicritic and protective sensation grossly diminished b/l DERM: RLE 5th ray incision appears well-coapted with sutures intact and no wound dehiscence noted. Macerated tissue noted along surgical site at middle 1/ 3. No drainage or purulence able to be expressed from incision. No erythema noted. No malodor, no other clinical signs of infection noted ORTHO: Partial 5th ray amputation right foot with mild tenderness to palpation surgical incision. - Neurological Exam Neurological exam: Alert, Oriented x3 - Psychiatric Exam Psychiatric exam: Normal Affect, Normal Mood Results - Vital Signs Recent Vital Signs: Last Vital Signs Temp 97.6 F 08/19/17 19:26 Pulse 90 08/19/17 19:26 Resp 17 08/19/17 19:26 BP 178/95 H 08/19/17 19:26 Pulse Ox 98 08/19/17 22:51 - Labs Result Diagrams: 08/19/17 21:20 08/19/17 21:50 Labs: Laboratory Results - last 24 hr 08/19/17 08/19/17 08/19/17 19:39 21:20 21:50 WBC 9.8 RBC 4.31 L Hgb 13.0 Hct 38.5 MCV 89.3 MCH 30.1 MCHC 33.7 RDW 12.3 Plt Count 395 MPV 6.7 L Neut % (Auto) 67.5 Lymph % (Auto) 23.7 [place] % (Auto) 5.4 Eos % (Auto) 2.0 Baso % (Auto) 1.4 Neut # 6.6 Lymph # 2.3 [place] # 0.5 Eos # 0.2 Baso # 0.1 Sodium 140 Potassium 4.6 Chloride 102 Carbon Dioxide 28 Anion Gap 14 BUN 31 H Creatinine 1.7 H Est GFR ( Amer) 51 Est GFR (Non-Af Amer) 42 POC Glucose (mg/dL) 319 H Random Glucose 258 H Calcium 9.7 Total Bilirubin 0.5 AST 50 ALT 44 Alkaline Phosphatase 81 Total Protein 8.4 H Albumin 3.7 Globulin 4.7 H Albumin/Globulin Ratio 0.8 L 08/19/17 23:17 WBC RBC Hgb Hct MCV MCH MCHC RDW Plt Count MPV Neut % (Auto) Lymph % (Auto) [place] % (Auto) Eos % (Auto) Baso % (Auto) Neut # Lymph # [place] # Eos # Baso # Sodium Potassium Chloride Carbon Dioxide Anion Gap BUN Creatinine Est GFR ( Amer) Est GFR (Non-Af Amer) POC Glucose (mg/dL) 166 H Random Glucose Calcium Total Bilirubin AST ALT Alkaline Phosphatase Total Protein Albumin Globulin Albumin/Globulin Ratio Assessment & Plan - Assessment and Plan (Free Text) Assessment: 56 year old man presents to ED for painful right foot 10 days s/p right fifth ray amputation Plan: Patient seen and evaluated in ED Plan discussed with attending sponge hooker, Dr. Barber Charts, labs and vitals reviewed, afebrile, WBC 9.8 Xray of right foot taken: No cortical erosion, periosteal reactivity, increased soft tissue mass or other signs indicative of OM noted Patient wound dressed with betadine soaked gauze, DSD, SHERI Patient advised to limit walking as much as possible and to wear surgical shoe whenever ambulating Patient advised to follow up with Dr. Mahoney in his office ELY - Date & Time Date: 08/20/17 Time: 14:08
== END 2017-08-19 23:04 | disposition home or self-care (01) ==
LOC: H.ER 19:16
DX: M79.671 Pain in right foot (principal); E11.9 Type 2 diabetes mellitus without complications; E78.00 Pure hypercholesterolemia, unspecified; I10 Essential (primary) hypertension; Z79.4 Long term (current) use of insulin

== ENCOUNTER 2017-08-25 17:41 | Emergency (ER) | payer MEDICAID ==
[2017-08-25 17:41] VITALS: BMI 22.1
[2017-08-25 17:46] VITALS: BP 153/69; PULSE 93; RESP 16; TEMP 97.8; O2SAT 99
--- NOTE | 2017-08-25 18:24 | ED PDOC ---
Lower Extremity Pain/Injury Time Seen by Provider: 08/25/17 17:59 Chief Complaint (Nursing): Lower Extremity Problem/Injury Chief Complaint (Provider): Wound Check History Per: Patient History/Exam Limitations: no limitations Onset/Duration Of Symptoms: Days Current Symptoms Are (Timing): Still Present Additional Complaint(s): Jose Bagley, a 56 year old male, with a past medical history of diabetes and hypertension presents to the ED for a wound check. The patient states he had surgery performed on his right foot 3 weeks ago. He reports that he has not followed up with the clinic and has not been changing the dressing daily. PMD: Yvon Kramer Past Medical History Reviewed: Historical Data, Nursing Documentation, Vital Signs Vital Signs: Last Vital Signs Temp 97.8 F 08/25/17 17:43 Pulse 93 H 08/25/17 17:43 Resp 16 08/25/17 17:43 BP 153/69 H 08/25/17 17:43 Pulse Ox 99 08/25/17 17:43 - Medical History PMH: Diabetes (NIDDM), HTN, Hypercholesterolemia Denies: HIV, Chronic Kidney Disease - Surgical History Surgical History: No Surg Hx - Family History Family History: States: Unknown Family Hx - Immunization History Hx Tetanus Toxoid Vaccination: No Hx Influenza Vaccination: No Hx Pneumococcal Vaccination: No - Home Medications Home Medications: Ambulatory Orders Medication Instructions Recorded Insulin Detemir [Levemir] 25 units SC HS #1 vial 08/08/17 Insulin Lispro Mix 75/25 [HumaLog 10 units SC BID #1 vial 08/08/17 MIX 75/25] Metoprolol Tartrate [Lopressor] 25 mg PO Q12 #60 tab 08/08/17 amLODIPine [Norvasc] 10 mg PO DAILY #30 tab 08/08/17 Linezolid [Zyvox] 600 mg PO BID #42 tab 08/12/17 - Allergies Allergies/Adverse Reactions: Allergies Allergy/AdvReac Type Severity Reaction Status Date / Time No Known Allergies Allergy Verified 07/20/17 17:56 Review of Systems ROS Statement: Except As Marked, All Systems Reviewed And Found Negative Musculoskeletal: Negative for: Foot Pain (Healing wound to right foot) Physical Exam - Reviewed Nursing Documentation Reviewed: Yes Vital Signs Reviewed: Yes - Physical Exam Appears: Positive for: Non-toxic, No Acute Distress Head Exam: Positive for: ATRAUMATIC, NORMAL INSPECTION, NORMOCEPHALIC Skin: Positive for: Normal Color, Warm, Dry. Negative for: Rash Eye Exam: Positive for: Normal appearance, EOMI, PERRL. Negative for: Nystagmus Extremity: Positive for: Normal ROM (Surgical wound healing well; sutures intact ; no erythema; no drainage.). Negative for: Tenderness, Calf Tenderness, Deformity, Swelling Neurologic/Psych: Positive for: Alert, Oriented, Gait - ECG O2 Sat by Pulse Oximetry: 99 (RA) Pulse Ox Interpretation: Normal Medical Decision Making Medical Decision Makin Initial Impression 56 year old male presenting for wound check Initial Plan: * No signs of infection. Dressing changed. Discussed f/u with podiatry. * Wound irrigated, antibiotic ointment and dressing applied. Scribe Attestation Documented by Billie Guillen acting as a scribe for Romana Pizano PA-C. Scribe Attestation All medical record entries made by the Scribe were at my direction and personally dictated by me. I have reviewed the chart and agree that the record accurately reflects my personal performance of the history, physical exam, medical decision making, and the department course for this patient. I have also personally directed, reviewed, and agree with the discharge instructions and disposition. Disposition - Clinical Impression Clinical Impression: Visit for wound check - Patient ED Disposition Is Patient to be Admitted: No Counseled Patient/Family Regarding: Studies Performed, Need For Followup - Disposition Referrals: Podiatry Clinic [Outside] Disposition: Routine/Home Disposition Time: 18:30 Condition: STABLE Additional Instructions: Please call clinic tomorrow morning so you may be seen by Dr. Barber. Instructions: Chronic Wound Care (ED) Forms: [employer] (Trinidadian) Print Language: MACEDONIAN - POA Present On Arrival: None
== END 2017-08-25 19:15 | disposition home or self-care (01) ==
LOC: H.ER 17:41
DX: Z48.01 Encounter for change or removal of surgical wound dressing (principal); E11.9 Type 2 diabetes mellitus without complications; I10 Essential (primary) hypertension

== ENCOUNTER 2017-09-02 03:34 | Observation (INO) | payer MEDICAID ==
[2017-09-02 03:45] VITALS: BMI 23.6
[2017-09-02] MEDS ORDERED: Dextrose 50% SYRINGE Inj (50 ml) ONE (03:45)
[2017-09-02] MEDS ORDERED: Dextrose 50% SYRINGE Inj (50 ml) IVP ONE ×2 (03:45)
--- NOTE | 2017-09-02 04:05 | ED PDOC ---
HPI: Altered Mental Status Time Seen by Provider: 09/02/17 03:43 Chief Complaint (Nursing): Weakness/Neurological Deficit Chief Complaint (Provider): Weakness History Per: Patient History/Exam Limitations: Clinical Condition Current Symptoms Are (Timing): Still Present Additional Complaint(s): 56 y/o male with a history of Diabetes Type I presents to the ED complaining of weakness. As per the roommate, patient was confused, prompting him to call EMS. Patient was found diaphoretic and slowly by EMS. Patient's glucose wasn't measured due to no access to glucometer. Upon ED arrival, patient 's accucheck showed blood glucose level of 34. PMD: Dr. Yvon Murray MD Past Medical History Reviewed: Historical Data, Nursing Documentation, Vital Signs Vital Signs: Last Vital Signs Temp 97 F L 09/02/17 03:51 Pulse 90 09/02/17 03:51 Resp 16 09/02/17 03:51 BP 174/85 H 09/02/17 03:51 Pulse Ox 100 09/02/17 03:51 - Medical History PMH: Diabetes (NIDDM), HTN, Hypercholesterolemia Denies: HIV, Chronic Kidney Disease Other PMH: Cellulitis of foot - Family History Family History: States: Unknown Family Hx - Social History Current smoker - smoking cessation education provided: Yes Alcohol: None Drugs: Cocaine - Immunization History Hx Tetanus Toxoid Vaccination: No Hx Influenza Vaccination: No Hx Pneumococcal Vaccination: No - Home Medications Home Medications: Ambulatory Orders Medication Instructions Recorded Insulin Detemir [Levemir] 25 units SC HS #1 vial 08/08/17 Insulin Lispro Mix 75/25 [HumaLog 10 units SC BID #1 vial 08/08/17 MIX 75/25] Metoprolol Tartrate [Lopressor] 25 mg PO Q12 #60 tab 08/08/17 amLODIPine [Norvasc] 10 mg PO DAILY #30 tab 08/08/17 Linezolid [Zyvox] 600 mg PO BID #42 tab 08/12/17 - Allergies Allergies/Adverse Reactions: Allergies Allergy/AdvReac Type Severity Reaction Status Date / Time No Known Allergies Allergy Verified 07/20/17 17:56 Review of Systems Review Of Systems: ROS cannot be obtained secondary to pt's inabilty to answer questions. Physical Exam - Reviewed Nursing Documentation Reviewed: Yes Vital Signs Reviewed: Yes - Physical Exam Appears: Positive for: Non-toxic, No Acute Distress Head Exam: Positive for: ATRAUMATIC, NORMAL INSPECTION, NORMOCEPHALIC Skin: Positive for: Normal Color, Warm, Diaphoresis. Negative for: Dry Cardiovascular/Chest: Positive for: Regular Rate, Rhythm. Negative for: Murmur Respiratory: Positive for: Normal Breath Sounds. Negative for: Accessory Muscle Use, Respiratory Distress Gastrointestinal/Abdominal: Positive for: Normal Exam, Bowel Sounds, Soft Neurologic/Psych: Positive for: Alert, Oriented (x3) - Laboratory Results Result Diagrams: 09/02/17 04:04 09/02/17 04:04 - ECG O2 Sat by Pulse Oximetry: 100 (RA) Pulse Ox Interpretation: Normal Medical Decision Making Medical Decision Making: Time: 03:45 Initial Impression: Acute hypoglycemia in setting of diabetes Initial Plan: --EKG --Alcohol serum --CMP --Drug Screen, Urine --Lactic acid, Plasma --Troponin I --CBC w/ diff --PTT --Prothrombin Time --Dextrose 50% 50ml IVP --Dextrose 50% 50ml IVP --Blood Culture --Heplock insertion --Accucheck --Urinalysis --Reevaluation Time: 05:32 Labs reviewed: no significant abnormalities except low blood glucose Patient is placed on observation and need to follow up with Dr. Murray. Clinical Impression: hypoglycemia Scribe Attestation: Documented by Nay Abad, acting as a scribe for Willard Cloud MD. Provider Scribe Attestation: All medical record entries made by the Scribe were at my direction and personally dictated by me. I have reviewed the chart and agree that the record accurately reflects my personal performance of the history, physical exam, medical decision making, and the department course for this patient. I have also personally directed, reviewed, and agree with the discharge instructions and disposition. Disposition - Disposition Disposition Time: 05:32
[2017-09-02 04:17] LABS: BASO # 0.1 K/uL (0.0-0.2); BASO % 1.1 % (0.0-2.0); EOS # 0.1 K/uL (0.0-0.7); EOS % 1.4 % (0.0-4.0); HEMATOCRIT 37.8 % (35.0-51.0); LYMPH # 2.1 K/uL (1.0-4.3); LYMPH % 23.8 % (20.0-40.0); MEAN CELL VOLUME 88.8 fl (80.0-94.0); MEAN CORPUSCULAR HEMOGLOBIN 30.6 pg (27.0-31.0); MEAN CORPUSCULAR HGB CONC 34.4 g/dL (33.0-37.0); MEAN PLATELET VOLUME 7.4 fl (7.2-11.7); MONO # 0.5 K/uL (0.0-0.8); MONO % 6.3 % (0.0-10.0); NEUT # 5.9 K/uL (1.8-7.0); NEUT % 67.4 % (50.0-75.0); NRBC % 0.1 % (0.0-0.0); RED CELL DISTRIBUTION WIDTH 13.5 % (11.5-14.5); WHITE BLOOD COUNT 8.7 K/uL (4.8-10.8)
[2017-09-02 04:24] LABS: PARTIAL THROMBOPLASTIN TIME 32.7 Seconds (25.6-37.1)
[2017-09-02 04:29] LABS: ALB/GLOB RATIO 0.9 (1.0-2.1); ALCOHOL SERUM < 10 mg/dl (0-10); ALKALINE PHOSPHATASE 56 U/L (38-126); ALT/SGPT 88 U/L (21-72); AST/SGOT 67 U/L (17-59); BILIRUBIN,TOTAL 0.3 mg/dl (0.2-1.3); BLOOD UREA NITROGEN 43 mg/dl (9-20); CALCIUM 8.9 mg/dL (8.4-10.2); CARBON DIOXIDE 23 mmol/L (22-30); CHLORIDE 103 mmol/L (98-107); GFR AFRICAN-AMERICAN 42; GLUCOSE,RANDOM 49 mg/dL (75-110); POTASSIUM 3.2 MMOL/L (3.6-5.0); SODIUM 135 mmol/l (132-148); TOTAL PROTEIN 7.4 G/DL (6.3-8.2)
[2017-09-02 05:46] LABS: RBC URINE < 1 /hpf (0-3); URINE BACTERIA RARE (<OCC); URINE BILIRUBIN NEGATIVE (NEGATIVE); URINE BLOOD SMALL (NEGATIVE); URINE COLOR STRAW (YELLOW); URINE GLUCOSE (UA) 150 mg/dL (Normal); URINE KETONE NEGATIVE (NEGATIVE); URINE LEUKOCYTE ESTERASE NEG Leu/uL (Negative); URINE PROTEIN 100 mg/dL (NEGATIVE); URINE UROBILINOGEN 0.2-1.0 mg/dL (0.2-1.0); WBC URINE < 1 /hpf (0-5)
--- NOTE | 2017-09-02 06:15 | ED PDOC ---
Hyperglycemia/Hypoglycemia Time Seen by Provider: 09/02/17 03:43 Chief Complaint (Nursing): Weakness/Neurological Deficit Chief Complaint (Provider): Weakness History Per: Patient History/Exam Limitations: clinical condition Current Symptoms Are (Timing): Still Present : The patient does not have any of the infectious symptoms listed except for those marked. Additional Complaint(s): 56 y/o male with a history of Diabetes Type I presents to the ED complaining of weakness. As per the roommate, patient was confused, prompting him to call EMS. Patient was found diaphoretic and slowly by EMS. Patient's glucose wasn't measured due to no access to glucometer. Upon ED arrival, patient 's accucheck showed blood glucose level of 34. PMD: Dr. Yvon Murray MD Past Medical History Vital Signs: Last Vital Signs Temp 97 F L 09/02/17 03:51 Pulse 90 09/02/17 03:51 Resp 16 09/02/17 03:51 BP 174/85 H 09/02/17 03:51 Pulse Ox 100 09/02/17 06:13 - Medical History PMH: Diabetes (NIDDM), HTN, Hypercholesterolemia Denies: HIV, Chronic Kidney Disease Other PMH: Cellulitis of foot - Family History Family History: States: Unknown Family Hx - Social History Current smoker - smoking cessation education provided: Yes Alcohol: None Drugs: Cocaine - Immunization History Hx Tetanus Toxoid Vaccination: No Hx Influenza Vaccination: No Hx Pneumococcal Vaccination: No - Home Medications Home Medications: Ambulatory Orders Medication Instructions Recorded Insulin Detemir [Levemir] 25 units SC HS #1 vial 08/08/17 Insulin Lispro Mix 75/25 [HumaLog 10 units SC BID #1 vial 08/08/17 MIX 75/25] Metoprolol Tartrate [Lopressor] 25 mg PO Q12 #60 tab 08/08/17 amLODIPine [Norvasc] 10 mg PO DAILY #30 tab 08/08/17 Linezolid [Zyvox] 600 mg PO BID #42 tab 08/12/17 - Allergies Allergies/Adverse Reactions: Allergies Allergy/AdvReac Type Severity Reaction Status Date / Time No Known Allergies Allergy Verified 07/20/17 17:56 Review of Systems Review Of Systems: ROS cannot be obtained secondary to pt's inabilty to answer questions. Physical Exam - Reviewed Nursing Documentation Reviewed: Yes Vital Signs Reviewed: Yes - Physical Exam Appears: Positive for: No Acute Distress Head Exam: Positive for: ATRAUMATIC, NORMAL INSPECTION, NORMOCEPHALIC Skin: Positive for: Normal Color, Warm, Diaphoresis. Negative for: Dry Cardiovascular/Chest: Positive for: Regular Rate, Rhythm. Negative for: Murmur Respiratory: Positive for: Normal Breath Sounds. Negative for: Accessory Muscle Use, Respiratory Distress Gastrointestinal/Abdominal: Positive for: Normal Exam, Bowel Sounds, Soft Neurologic/Psych: Positive for: Alert, Oriented (x3) - Laboratory Results Result Diagrams: 09/02/17 04:04 09/02/17 04:04 - ECG O2 Sat by Pulse Oximetry: 100 (RA) Pulse Ox Interpretation: Normal Medical Decision Making Medical Decision Making: Time: 03:45 Initial Impression: Acute hypoglycemia in setting of diabetes Initial Plan: --EKG --Alcohol serum --CMP --Drug Screen, Urine --Lactic acid, Plasma --Troponin I --CBC w/ diff --PTT --Prothrombin Time --Dextrose 50% 50ml IVP --Dextrose 50% 50ml IVP --Blood Culture --Heplock insertion --Accucheck --Urinalysis --Reevaluation Time: 05:32 Labs reviewed: no significant abnormalities except low blood glucose Patient is placed on observation and need to follow up with Dr. Murray. Clinical Impression: hypoglycemia Scribe Attestation: Documented by Nya Abad, acting as a scribe for Willard Cloud MD. Provider Scribe Attestation: All medical record entries made by the Scribe were at my direction and personally dictated by me. I have reviewed the chart and agree that the record accurately reflects my personal performance of the history, physical exam, medical decision making, and the department course for this patient. I have also personally directed, reviewed, and agree with the discharge instructions and disposition. Disposition - Disposition Disposition Time: 05:32
[2017-09-02] MEDS: Insulin Regular 100 units/ml SC SCH ×4 (10:02→23:00)
[2017-09-02] MEDS: Potassium Chloride 20 mEq ER Tab PO SCH ×2 (10:04→17:05)
--- NOTE | 2017-09-02 10:42 | CP.PCM.HP ---
History of Present Illness - History of Present Illness History of Present Illness: This is a 56 y/o male with hx of DM 2 admitte from last night for altered mental staus and hypoglycemia. He takes Insulin 70/ 30 10 units bID at home. Past Patient History - Infectious Disease Hx of Infectious Diseases: None - Past Medical History & Family History Past Medical History?: Yes - Past Social History Alcohol: None Drugs: Cocaine - CARDIAC Hx Hypercholesterolemia: Yes Hx Hypertension: Yes - PULMONARY Hx Respiratory Disorders: No - NEUROLOGICAL Hx Neurological Disorder: No - HEENT Hx HEENT Problems: No - RENAL Hx Chronic Kidney Disease: No - ENDOCRINE/METABOLIC Hx Endocrine Disorders: Yes Hx Diabetes Mellitus Type 1: Yes - HEMATOLOGICAL/ONCOLOGICAL Hx Human Immunodeficiency Virus (HIV): No - INTEGUMENTARY Hx Dermatological Problems: No - MUSCULOSKELETAL/RHEUMATOLOGICAL Hx Musculoskeletal Disorders: No Hx Falls: Yes (6 months ago "when sugar was too high") - GASTROINTESTINAL Hx Gastrointestinal Disorders: Yes Hx Nausea: Yes Hx Vomiting: Yes - GENITOURINARY/GYNECOLOGICAL Hx Genitourinary Disorders: No - PSYCHIATRIC Hx Psychophysiologic Disorder: No Hx Substance Use: Yes - SURGICAL HISTORY Hx Surgeries: Yes Hx Amputation: Yes (right foot toe amputation) Hx Open Reduction Internal Fixation: Yes (Left Tib/Fib fracture) - ANESTHESIA Hx Anesthesia: Yes Hx Anesthesia Reactions: No Hx Malignant Hyperthermia: No Meds Allergies/Adverse Reactions: Allergies Allergy/AdvReac Type Severity Reaction Status Date / Time No Known Allergies Allergy Verified 07/20/17 17:56 Results - Vital Signs Recent Vital Signs: Last Vital Signs Temp 97 F L 09/02/17 08:41 Pulse 92 H 09/02/17 10:04 Resp 20 09/02/17 08:41 BP 169/83 H 09/02/17 10:04 Pulse Ox 99 09/02/17 08:41 - Labs Result Diagrams: 09/02/17 04:04 09/02/17 04:04 Labs: Laboratory Results - last 24 hr 09/02/17 09/02/17 09/02/17 03:42 04:04 04:04 WBC 8.7 RBC 4.26 L Hgb 13.0 Hct 37.8 MCV 88.8 MCH 30.6 MCHC 34.4 RDW 13.5 Plt Count 180 D MPV 7.4 Neut % (Auto) 67.4 Lymph % (Auto) 23.8 [place] % (Auto) 6.3 Eos % (Auto) 1.4 Baso % (Auto) 1.1 Neut # 5.9 Lymph # 2.1 [place] # 0.5 Eos # 0.1 Baso # 0.1 PT INR APTT Sodium 135 Potassium 3.2 L Chloride 103 Carbon Dioxide 23 Anion Gap 12 BUN 43 H Creatinine 2.0 H Est GFR ( Amer) 42 Est GFR (Non-Af Amer) 35 POC Glucose (mg/dL) 34 L* Random Glucose 49 L Lactic Acid Calcium 8.9 Total Bilirubin 0.3 AST 67 H D ALT 88 H D Alkaline Phosphatase 56 Troponin I < 0.0120 Total Protein 7.4 Albumin 3.5 Globulin 3.9 Albumin/Globulin Ratio 0.9 L Urine Color Urine Clarity Urine pH Ur Specific [place] Urine Protein Urine Glucose (UA) Urine Ketones Urine Blood Urine Nitrate Urine Bilirubin Urine Urobilinogen Ur Leukocyte Esterase Urine RBC (Auto) Urine Microscopic WBC Urine Bacteria Urine Opiates Screen Urine Methadone Screen Ur Barbiturates Screen Ur Phencyclidine Scrn Ur Amphetamines Screen U Benzodiazepines Scrn U Oth Cocaine Metabols U Cannabinoids Screen Alcohol, Quantitative < 10 09/02/17 09/02/17 09/02/17 04:04 04:04 04:36 WBC RBC Hgb Hct MCV MCH MCHC RDW Plt Count MPV Neut % (Auto) Lymph % (Auto) [place] % (Auto) Eos % (Auto) Baso % (Auto) Neut # Lymph # [place] # Eos # Baso # PT 11.7 INR 1.0 APTT 32.7 Sodium Potassium Chloride Carbon Dioxide Anion Gap BUN Creatinine Est GFR ( Amer) Est GFR (Non-Af Amer) POC Glucose (mg/dL) 158 H Random Glucose Lactic Acid 1.4 Calcium Total Bilirubin AST ALT Alkaline Phosphatase Troponin I Total Protein Albumin Globulin Albumin/Globulin Ratio Urine Color Urine Clarity Urine pH Ur Specific [place] Urine Protein Urine Glucose (UA) Urine Ketones Urine Blood Urine Nitrate Urine Bilirubin Urine Urobilinogen Ur Leukocyte Esterase Urine RBC (Auto) Urine Microscopic WBC Urine Bacteria Urine Opiates Screen Urine Methadone Screen Ur Barbiturates Screen Ur Phencyclidine Scrn Ur Amphetamines Screen U Benzodiazepines Scrn U Oth Cocaine Metabols U Cannabinoids Screen Alcohol, Quantitative 09/02/17 09/02/17 09/02/17 05:33 05:35 05:35 WBC RBC Hgb Hct MCV MCH MCHC RDW Plt Count MPV Neut % (Auto) Lymph % (Auto) [place] % (Auto) Eos % (Auto) Baso % (Auto) Neut # Lymph # [place] # Eos # Baso # PT INR APTT Sodium Potassium Chloride Carbon Dioxide Anion Gap BUN Creatinine Est GFR ( Amer) Est GFR (Non-Af Amer) POC Glucose (mg/dL) 135 H Random Glucose Lactic Acid Calcium Total Bilirubin AST ALT Alkaline Phosphatase Troponin I Total Protein Albumin Globulin Albumin/Globulin Ratio Urine Color Straw Urine Clarity Clear Urine pH 5.0 Ur Specific [place] 1.005 Urine Protein 100 Urine Glucose (UA) 150 Urine Ketones Negative Urine Blood Small Urine Nitrate Negative Urine Bilirubin Negative Urine Urobilinogen 0.2-1.0 Ur Leukocyte Esterase Neg Urine RBC (Auto) < 1 Urine Microscopic WBC < 1 Urine Bacteria Rare Urine Opiates Screen Negative Urine Methadone Screen Negative Ur Barbiturates Screen Negative Ur Phencyclidine Scrn Negative Ur Amphetamines Screen Negative U Benzodiazepines Scrn Negative U Oth Cocaine Metabols Negative U Cannabinoids Screen Negative Alcohol, Quantitative
[2017-09-02] MEDS: Enoxaparin 30 mg Syringe SC SCH (10:52)
[2017-09-02] MEDS: Sodium Chloride 0.9% 1,000 ML IV SCH (11:05)
--- NOTE | 2017-09-02 12:25 | CARD ---
APPROVED REPORT EKG Measurement Heart [id number] <Conclusion> Sinus rhythm with occasional premature ventricular complexes Abnormal ECG
[2017-09-02] MEDS ORDERED: Pneumococcal 23-Valent Vaccine IM ONE (13:55)
[2017-09-02] MEDS ORDERED: Influenza Vaccine 18yr & older 0.5 ML/45 MCG SYR IM ONE (15:00)
[2017-09-02 16:06] VITALS: O2SAT 98
[2017-09-03 06:32] LABS: HEMATOCRIT 34.5 % (35.0-51.0); MEAN CELL VOLUME 90.7 fl (80.0-94.0); MEAN CORPUSCULAR HEMOGLOBIN 30.4 pg (27.0-31.0); MEAN CORPUSCULAR HGB CONC 33.5 g/dL (33.0-37.0); RED CELL DISTRIBUTION WIDTH 13.7 % (11.5-14.5); WHITE BLOOD COUNT 6.9 K/uL (4.8-10.8)
[2017-09-03 07:12] LABS: BILIRUBIN,TOTAL 0.3 mg/dl (0.2-1.3); CALCIUM 8.5 mg/dL (8.4-10.2); POTASSIUM 4.4 MMOL/L (3.6-5.0)
[2017-09-03 07:19] LABS: ALB/GLOB RATIO 0.8 (1.0-2.1)
[2017-09-03] MEDS: Insulin Regular 100 units/ml SC SCH ×3 (07:51→18:24)
[2017-09-03 07:53] VITALS: BP 143/88; RESP 18; TEMP 98.4
[2017-09-03] MEDS: Enoxaparin 30 mg Syringe SC SCH (08:44)
[2017-09-03] MEDS: Sodium Chloride 0.9% 1,000 ML IV SCH (08:44)
[2017-09-03] MEDS: Potassium Chloride 20 mEq ER Tab PO SCH ×2 (08:44→18:25)
[2017-09-03 08:45] VITALS: PULSE 98
--- NOTE | 2017-09-03 16:08 | CP.PCM.DIS ---
Provider - Provider Date of Admission: 09/02/17 05:28 Attending physician: Yvon Murray MD Primary care physician: Yvon Murray MD Time Spent in preparation of Discharge (in minutes): 30 Diagnosis - Discharge Diagnosis (1) Hypoglycemia Status: Acute Hospital Course - Lab Results Lab Results: Micro Results 09/02/17 04:34 Blood Blood Culture - Preliminary NO GROWTH AFTER 24 HOURS 09/02/17 04:04 Blood Blood Culture - Preliminary NO GROWTH AFTER 24 HOURS Most Recent Lab Values WBC 6.9 K/uL (4.8-10.8) 09/03/17 05:55 RBC 3.81 Mil/uL (4.40-5.90) L 09/03/17 05:55 Hgb 11.6 g/dL (12.0-18.0) L 09/03/17 05:55 Hct 34.5 % (35.0-51.0) L 09/03/17 05:55 MCV 90.7 fl (80.0-94.0) 09/03/17 05:55 MCH 30.4 pg (27.0-31.0) 09/03/17 05:55 MCHC 33.5 g/dL (33.0-37.0) 09/03/17 05:55 RDW 13.7 % (11.5-14.5) 09/03/17 05:55 Plt Count 146 K/uL (130-400) 09/03/17 05:55 MPV 7.4 fl (7.2-11.7) 09/02/17 04:04 Neut % (Auto) 67.4 % (50.0-75.0) 09/02/17 04:04 Lymph % (Auto) 23.8 % (20.0-40.0) 09/02/17 04:04 [place] % (Auto) 6.3 % (0.0-10.0) 09/02/17 04:04 Eos % (Auto) 1.4 % (0.0-4.0) 09/02/17 04:04 Baso % (Auto) 1.1 % (0.0-2.0) 09/02/17 04:04 Neut # 5.9 K/uL (1.8-7.0) 09/02/17 04:04 Lymph # 2.1 K/uL (1.0-4.3) 09/02/17 04:04 [place] # 0.5 K/uL (0.0-0.8) 09/02/17 04:04 Eos # 0.1 K/uL (0.0-0.7) 09/02/17 04:04 Baso # 0.1 K/uL (0.0-0.2) 09/02/17 04:04 PT 11.7 Seconds (9.8-13.1) 09/02/17 04:04 INR 1.0 (0.9-1.2) 09/02/17 04:04 APTT 32.7 Seconds (25.6-37.1) 09/02/17 04:04 Sodium 136 mmol/l (132-148) 09/03/17 05:55 Potassium 4.4 MMOL/L (3.6-5.0) 09/03/17 05:55 Chloride 109 mmol/L (98-107) H 09/03/17 05:55 Carbon Dioxide 24 mmol/L (22-30) 09/03/17 05:55 Anion Gap 7 (10-20) L 09/03/17 05:55 BUN 39 mg/dl (9-20) H 09/03/17 05:55 Creatinine 2.2 mg/dL (0.8-1.5) H 09/03/17 05:55 Est GFR ( Amer) 38 09/03/17 05:55 Est GFR (Non-Af Amer) 31 09/03/17 05:55 POC Glucose (mg/dL) 184 mg/dL (65-110) H 09/03/17 15:31 Random Glucose 117 mg/dL (75-110) H 09/03/17 05:55 Hemoglobin A1c 12.7 % (4.2-6.5) H 09/02/17 07:08 Lactic Acid 1.4 MMOL/L (0.7-2.1) 09/02/17 04:04 Calcium 8.5 mg/dL (8.4-10.2) 09/03/17 05:55 Total Bilirubin 0.3 mg/dl (0.2-1.3) 09/03/17 05:55 AST 37 U/L (17-59) 09/03/17 05:55 ALT 66 U/L (21-72) 09/03/17 05:55 Alkaline Phosphatase 44 U/L (38-126) 09/03/17 05:55 Troponin I < 0.0120 ng/mL (0.00-0.120) 09/02/17 04:04 Total Protein 6.0 G/DL (6.3-8.2) L 09/03/17 05:55 Albumin 2.8 g/dL (3.5-5.0) L 09/03/17 05:55 Globulin 3.3 gm/dL (2.2-3.9) 09/03/17 05:55 Albumin/Globulin Ratio 0.8 (1.0-2.1) L 09/03/17 05:55 Urine Color Straw (YELLOW) 09/02/17 05:35 Urine Clarity Clear (Clear) 09/02/17 05:35 Urine pH 5.0 (5.0-8.0) 09/02/17 05:35 Ur Specific [place] 1.005 (1.003-1.030) 09/02/17 05:35 Urine Protein 100 mg/dL (NEGATIVE) 09/02/17 05:35 Urine Glucose (UA) 150 mg/dL (Normal) 09/02/17 05:35 Urine Ketones Negative mg/dL (NEGATIVE) 09/02/17 05:35 Urine Blood Small (NEGATIVE) 09/02/17 05:35 Urine Nitrate Negative (NEGATIVE) 09/02/17 05:35 Urine Bilirubin Negative (NEGATIVE) 09/02/17 05:35 Urine Urobilinogen 0.2-1.0 mg/dL (0.2-1.0) 09/02/17 05:35 Ur Leukocyte Esterase Neg [place]/uL (Negative) 09/02/17 05:35 Urine RBC (Auto) < 1 /hpf (0-3) 09/02/17 05:35 Urine Microscopic WBC < 1 /hpf (0-5) 09/02/17 05:35 Urine Bacteria Rare (<OCC) 09/02/17 05:35 Urine Opiates Screen Negative (NEGATIVE) 09/02/17 05:35 Urine Methadone Screen Negative (NEGATIVE) 09/02/17 05:35 Ur Barbiturates Screen Negative (NEGATIVE) 09/02/17 05:35 Ur Phencyclidine Scrn Negative (NEGATIVE) 09/02/17 05:35 Ur Amphetamines Screen Negative (NEGATIVE) 09/02/17 05:35 U Benzodiazepines Scrn Negative (NEGATIVE) 09/02/17 05:35 U Oth Cocaine Metabols Negative (NEGATIVE) 09/02/17 05:35 U Cannabinoids Screen Negative (NEGATIVE) 09/02/17 05:35 Alcohol, Quantitative < 10 mg/dl (0-10) 09/02/17 04:04 - Hospital Course Hospital Course: 56 YO M w/ DM had presented to the ED complaining of weakness and was found to be hypoglycemic and was admitted. His accucheck showed a reading of 34. Patients medications have been optimized and insulin has been stopped and patient is being discharged on oral medications. Folllow up with PMD in 2-3 days after discharge. If symptoms reoccur please return to the ER. Discharge Exam - Head Exam Head Exam: ATRAUMATIC, NORMAL INSPECTION, NORMOCEPHALIC - Eye Exam Eye Exam: Normal appearance - Respiratory Exam Respiratory Exam: NORMAL BREATHING PATTERN. absent: Rales, Wheezes, Respiratory Distress - Cardiovascular Exam Cardiovascular Exam: REGULAR RHYTHM, +S1, +S2 - GI/Abdominal Exam GI & Abdominal Exam: Normal Bowel Sounds, Soft. absent: Tenderness - Neurological Exam Neurological exam: Alert, CN II-XII Intact, Oriented x3 - Skin Skin Exam: Normal Color, Warm Discharge Plan - Discharge Medications Prescriptions: Losartan [Cozaar] 50 mg PO DAILY #30 tab Pioglitazone [Actos] 30 mg PO DAILY #30 tab SITagliptin [Januvia] 50 mg PO DAILY #30 tab - Follow Up Plan Condition: GOOD Disposition: HOME/ ROUTINE Instructions: Diabetic Foot Care (DC), Diabetic Hypoglycemia (DC), Meal Planning with Diabetes Exchanges (DC) Additional Instructions: Hacer tracy con ray doctor [address] dr nikita wright [address] [facility] azucar Referrals: [facility] [Outside] Yvon Murray MD [Primary Care Provider] -
== END 2017-09-03 19:15 | disposition home health service (06) ==
LOC: H.ER 03:34 → H.ERHOLD 05:28 → H.MEDSURG1 06:44
PROVIDERS: ADMIT Family Medicine; ATTEND Family Medicine
DX: E10.649 Type 1 diabetes mellitus with hypoglycemia without coma (principal); E78.00 Pure hypercholesterolemia, unspecified; I10 Essential (primary) hypertension; F17.200 Nicotine dependence, unspecified, uncomplicated; Z23 Encounter for immunization; Z79.4 Long term (current) use of insulin
CPT/HCPCS: 36415; 80053; 80320; 80324; 80345; 80346; 80349; 80353; 80358; 80361; 81003; 82948; 83036; 83605; 83992; 84484; 85025; 85027; 85610; 85730; 87040; 90471; 93005; 96374; 99283; G0378; J1650; J1885; J7040; Q2035

== ENCOUNTER 2017-11-05 17:22 | Emergency (ER) | payer MEDICAID ==
[2017-11-05 17:22] VITALS: BMI 23.6
[2017-11-05 17:58] VITALS: RESP 18; TEMP 98
--- NOTE | 2017-11-05 18:49 | ED PDOC ---
Lower Extremity Pain/Injury Time Seen by Provider: 11/05/17 18:11 Chief Complaint (Nursing): Lower Extremity Problem/Injury Chief Complaint (Provider): Wound Check History Per: Patient History/Exam Limitations: no limitations Onset/Duration Of Symptoms: Days Current Symptoms Are (Timing): Still Present Additional Complaint(s): 56 year old male with a past medical history of diabetes presents to the ED post amputation for wound care. The patient states that he recently had an amputation to the first MTP on his right lower extremity. He reports that his last podiatry follow up was 09/23 at the clinic. Patient states he has not followed up since then. Patient also states that he has had his sock on three days and presents to the ED today because he could not remove the sock as it was stuck to the wound. PMD: Yvon Kramer Past Medical History Reviewed: Historical Data, Nursing Documentation, Vital Signs Vital Signs: Last Vital Signs Temp 98 F 11/05/17 17:54 Pulse 94 H 11/05/17 17:54 Resp 18 11/05/17 17:54 BP 144/63 11/05/17 17:54 Pulse Ox 98 11/05/17 17:54 - Medical History PMH: Diabetes (NIDDM), HTN, Hypercholesterolemia Denies: HIV, Chronic Kidney Disease - Surgical History Surgical History: No Surg Hx - Family History Family History: States: Unknown Family Hx - Social History Current smoker - smoking cessation education provided: No Ex-Smoker (has not smoked in the last 12 months): No Alcohol: None Drugs: Other (yes but does not specify) - Immunization History Hx Tetanus Toxoid Vaccination: No Hx Influenza Vaccination: No Hx Pneumococcal Vaccination: No - Home Medications Home Medications: Ambulatory Orders Medication Instructions Recorded Losartan [Cozaar] 50 mg PO DAILY #30 tab 09/03/17 Pioglitazone [Actos] 30 mg PO DAILY #30 tab 09/03/17 SITagliptin [Januvia] 50 mg PO DAILY #30 tab 09/03/17 - Allergies Allergies/Adverse Reactions: Allergies Allergy/AdvReac Type Severity Reaction Status Date / Time No Known Allergies Allergy Verified 07/20/17 17:56 Review of Systems ROS Statement: Except As Marked, All Systems Reviewed And Found Negative Musculoskeletal: Positive for: Other (wound care ) Physical Exam - Reviewed Nursing Documentation Reviewed: Yes Vital Signs Reviewed: Yes - Physical Exam Appears: Positive for: Non-toxic, No Acute Distress Skin: Positive for: Normal Color, Warm, Dry. Negative for: Rash Eye Exam: Positive for: Normal appearance, EOMI, PERRL Extremity: Positive for: Normal ROM (normal ROM of right foot; Erythema. redness and drainage noted at wound site. Fungal Infection also noted.). Negative for: Tenderness (no tenderness to right foot), Deformity, Swelling (no swelling orf rt foot) Neurologic/Psych: Positive for: Alert, Oriented - Laboratory Results Result Diagrams: 11/05/17 19:00 11/05/17 19:00 - ECG O2 Sat by Pulse Oximetry: 98 (RA) Pulse Ox Interpretation: Normal Medical Decision Making Medical Decision Makin Initial Impression 56 y/o male presenting for wound care Initial Plan: * CMP * CBC * Blood Culture * RAD rt foot * Reevaluation 1914 Blood Glucose levels 480. Urinalysis and VBG will be ordered. Patient will be placed on normal saline and given insulin. BS improved to 268. Pt with stable VS and will f.u with podiatry at clinic. Documented by Billie Guillen acting as a scribe for Ree Flowers. All medical record entries made by the Scribe were at my direction and personally dictated by me. I have reviewed the chart and agree that the record accurately reflects my personal performance of the history, physical exam, medical decision making, and the department course for this patient. I have also personally directed, reviewed, and agree with the discharge instructions and disposition. Disposition - Clinical Impression Clinical Impression: Encounter for wound care, Elevated blood sugar - Patient ED Disposition Is Patient to be Admitted: No Counseled Patient/Family Regarding: Studies Performed, Diagnosis, Need For Followup - Disposition Referrals: [facility] [Outside] Podiatry Clinic [Outside] Disposition: Routine/Home Disposition Time: 21:33 Condition: IMPROVED Instructions: How to Check Your Blood Sugar (ED)
[2017-11-05 19:14] LABS: BASO % 0.6 % (0.0-2.0); EOS # 0.1 K/uL (0.0-0.7); EOS % 2.3 % (0.0-4.0); HEMOGLOBIN 12.2 g/dL (12.0-18.0); LYMPH # 1.1 K/uL (1.0-4.3); LYMPH % 19.9 % (20.0-40.0); MEAN CELL VOLUME 90.5 fl (80.0-94.0); MEAN CORPUSCULAR HEMOGLOBIN 30.5 pg (27.0-31.0); MEAN CORPUSCULAR HGB CONC 33.7 g/dL (33.0-37.0); MEAN PLATELET VOLUME 8.4 fl (7.2-11.7); MONO # 0.5 K/uL (0.0-0.8); MONO % 8.2 % (0.0-10.0); NRBC % 0.1 % (0.0-0.0); WHITE BLOOD COUNT 5.8 K/uL (4.8-10.8)
[2017-11-05 19:39] LABS: ALBUMIN 3.2 g/dL (3.5-5.0); CALCIUM 8.9 mg/dL (8.4-10.2)
[2017-11-05] MEDS ORDERED: Sodium Chloride 0.9% 1,000 ML IV STA (19:40)
[2017-11-05 20:06] LABS: SQUAMOUS EPITHIAL < 1 /hpf (0-5); URINE BACTERIA RARE (<OCC); URINE BILIRUBIN NEGATIVE (NEGATIVE); URINE BLOOD SMALL (NEGATIVE); URINE CLARITY SLIGHTY-CLOUDY (Clear); URINE COLOR YELLOW (YELLOW); URINE GLUCOSE (UA) >=500 mg/dL (Normal); URINE LEUKOCYTE ESTERASE NEG Leu/uL (Negative); URINE NITRATE NEGATIVE (NEGATIVE); URINE PROTEIN >=500 mg/dL (NEGATIVE); URINE UROBILINOGEN 0.2-1.0 mg/dL (0.2-1.0)
[2017-11-05 20:23] LABS: VENOUS BLOOD GAS BASE EXCESS 0.9 mmol/L (0.0-2.0); VENOUS BLOOD GAS PCO2 60 mmHg (40-60); VENOUS BLOOD GAS PO2 22 mm/Hg (30-55); VENOUS BLOOD PH 7.29 (7.32-7.43)
--- NOTE | 2017-11-05 20:29 | CP.PCM.CON ---
History of Present Illness - History of Present Illness History of Present Illness: 56 y/o male with PMHx of DM, HTN, and hyperlipidemia seen and evaluated at bedside in ED for right foot non-infected wound. Patient states that he had an amputation of the 5th toe about 2 months ago. Patient reports that he was suppose to follow up in podiatry clinic after the discharge. Patient reports that he has not been going for a follow up because he would rather come to the ED. Patient states that he came to the ED about 2 months ago for the wound check. Patient states that he has not been changing the dressing daily or has not been taking care of the wound at all. Reports that he came to the ED today because his sock got stuck on the right foot which he had not changed it for the last 3 days. Denies of any recent F/N/V/C/SOB/CP. Denies of any pain to the right foot. Denies of any other pedal complains at this time PMHx: DM, HTN, hyperlipidemia PSHx: Right foot partial 5th metatarsal amputation Allergies: N.K.D.A SHx: Agrees to smoking and illicit drug usage, denies of EtOH use Review of Systems - Constitutional Constitutional: As Per HPI Past Patient History - Infectious Disease Hx of Infectious Diseases: None - Past Medical History & Family History Past Medical History?: Yes - Past Social History Alcohol: None Drugs: Other (yes but does not specify) - CARDIAC Hx Hypercholesterolemia: Yes Hx Hypertension: Yes - PULMONARY Hx Respiratory Disorders: No - NEUROLOGICAL Hx Neurological Disorder: No - HEENT Hx HEENT Problems: No - RENAL Hx Chronic Kidney Disease: No - ENDOCRINE/METABOLIC Hx Endocrine Disorders: Yes Hx Diabetes Mellitus Type 1: Yes - HEMATOLOGICAL/ONCOLOGICAL Hx Human Immunodeficiency Virus (HIV): No - INTEGUMENTARY Hx Dermatological Problems: No - MUSCULOSKELETAL/RHEUMATOLOGICAL Hx Musculoskeletal Disorders: No Hx Falls: Yes (6 months ago "when sugar was too high") - GASTROINTESTINAL Hx Gastrointestinal Disorders: Yes Hx Nausea: Yes Hx Vomiting: Yes - GENITOURINARY/GYNECOLOGICAL Hx Genitourinary Disorders: No - PSYCHIATRIC Hx Psychophysiologic Disorder: No Hx Substance Use: Yes - SURGICAL HISTORY Hx Surgeries: Yes Hx Amputation: Yes (right foot toe amputation) Hx Open Reduction Internal Fixation: Yes (Left Tib/Fib fracture) - ANESTHESIA Hx Anesthesia: Yes Hx Anesthesia Reactions: No Hx Malignant Hyperthermia: No Meds Allergies/Adverse Reactions: Allergies Allergy/AdvReac Type Severity Reaction Status Date / Time No Known Allergies Allergy Verified 07/20/17 17:56 - Medications Medications: Current Medications Sodium Chloride (Sodium Chloride 0.9%) 1,000 mls @ 1,000 mls/hr IV .Q1H STA Stop: 11/05/17 20:39 Last Admin: 11/05/17 20:13 Dose: 1,000 mls/hr Physical Exam - Constitutional Appears: Well, Non-toxic, No Acute Distress - Extremities Exam Additional comments: Right LE focused exam VASC: DP/PT pulse are palpable 1/4 to right foot. Cap refill time: <3 sec to all digits . Temp gradient: warm to cool from proximal to distal, no pitting or non-pitting edema noted on the RLE DERM: Wound measuring approx. 2.5 cm x 1.5 cm x 0.3 cm at the distal dorsal aspect of the right lateral foot at the site of the partial 5th ray amputation, wound base is fibrotic (approx 30%) and grannular (70%), no active drainage, no malodor, no erythema, no tunneling or undermining, no probe to bone, no clinical suspicion of active infection NEURO: Epicritic and protective sensation grossly diminished ORTHO: Partial 5th ray amputation right foot, no pain or tenderness on palpation of the wound site - Neurological Exam Neurological exam: Alert, Oriented x3 - Psychiatric Exam Psychiatric exam: Normal Affect, Normal Mood Results - Vital Signs Recent Vital Signs: Last Vital Signs Temp 98 F 11/05/17 17:54 Pulse 94 H 11/05/17 17:54 Resp 18 11/05/17 17:54 BP 144/63 11/05/17 17:54 Pulse Ox 98 11/05/17 20:06 - Labs Result Diagrams: 11/05/17 19:00 11/05/17 19:00 Labs: Laboratory Results - last 24 hr 11/05/17 11/05/17 11/05/17 19:00 19:00 19:39 WBC 5.8 RBC 4.00 L Hgb 12.2 Hct 36.2 MCV 90.5 MCH 30.5 MCHC 33.7 RDW 14.0 Plt Count 169 MPV 8.4 Neut % (Auto) 69.0 Lymph % (Auto) 19.9 L [place] % (Auto) 8.2 Eos % (Auto) 2.3 Baso % (Auto) 0.6 Neut # 4.0 Lymph # 1.1 [place] # 0.5 Eos # 0.1 Baso # 0.0 Sodium 134 Potassium 5.0 Chloride 98 Carbon Dioxide 27 Anion Gap 14 BUN 40 H Creatinine 2.5 H Est GFR ( Amer) 33 Est GFR (Non-Af Amer) 27 Random Glucose 418 H* D Calcium 8.9 Total Bilirubin 0.6 AST 19 ALT 37 Alkaline Phosphatase 54 Total Protein 6.6 Albumin 3.2 L Globulin 3.3 Albumin/Globulin Ratio 1.0 Urine Color Yellow Urine Clarity Slighty-cloudy Urine pH 5.0 Ur Specific [place] 1.011 Urine Protein >=500 Urine Glucose (UA) >=500 Urine Ketones Negative Urine Blood Small Urine Nitrate Negative Urine Bilirubin Negative Urine Urobilinogen 0.2-1.0 Ur Leukocyte Esterase Neg Urine RBC (Auto) 6 H Urine Microscopic WBC 2 Ur Squamous Epith Cells < 1 Urine Bacteria Rare Hyaline Casts 3-5 H Assessment & Plan - Assessment and Plan (Free Text) Assessment: 56 y/o male with PMHx of DM, HTN and hyperlipidemia seen and evaluated in ED for non-infected right foot wound Plan: Patient seen and evaluated Discussed patient with attending Dr. Darnell Labs, vitals and charts reviewed - afebrile WBC @ 5.8 X-rays of the right foot ordered and reviewed - no periosteal reaction at the stump of the 5th metatarsal, no soft tissue emphysema, no active fracture or dislocation noted Wound cleaned with saline and dressed using bacitracin, DSD Surgical shoe applied to the RLE Patient educated to keep the dressing clean and dry Patient educated of daily dressing changes and made aware the importance of following up at the clinic with an appointment Educated to return to ED if any systemic signs arises Patient demonstrated verbal understanding and agreed that will come to the clinic and not ED for a follow up Thank you for the podiatry consult and allowing to take part in patient care - Date & Time Date: 11/05/17 Time: 20:45
[2017-11-05 21:27] VITALS: BP 146/87; PULSE 83
[2017-11-05 21:49] VITALS: O2SAT 98
--- NOTE | 2017-11-06 10:18 | RAD ---
PROCEDURE: Right Foot Radiographs. HISTORY: amputuation, infection COMPARISON: 08/19/2017 FINDINGS: BONES: The mid 5th metatarsal shaft level amputation status is renoted. The amputated tip has slightly greater subcortical lucency and interval splinter like calcification here is now present there is mottled density to the most distal soft tissues along this 5th digit ray. Osteolysis of the amputated site as well as an early mild colitis here cannot be entirely excluded. The splinter like calcifications may relate to interval trauma. No medial or lateral periosteal reaction appreciated. JOINTS: Normal. SOFT TISSUES: Status post amputation with current soft tissue changes consistent with a cellulitis an ulcer here OTHER FINDINGS: None. IMPRESSION: Interval changes - 5th metatarsal amputation tip -osteomyelitis here possible. No medial or lateral periosteal reaction. Interval splinter like ossification at amputated tip. Distal soft tissue changes consistent with cellulitis with or without a known clinical ulcer.
== END 2017-11-05 21:53 | disposition home or self-care (01) ==
LOC: H.ER 17:22
DX: E11.65 Type 2 diabetes mellitus with hyperglycemia (principal); Z48.01 Encounter for change or removal of surgical wound dressing; I10 Essential (primary) hypertension; Z79.4 Long term (current) use of insulin; Z87.891 Personal history of nicotine dependence
CPT/HCPCS: 73630; 80053; 81003; 82803; 82948; 85025; 87040; 99283; J7040